=== PATIENT | female | born 1970 | race Caucasian/White ===

== ENCOUNTER 2024-04-27 14:27 | Inpatient (IN) | payer OTHER ==
--- OUTSIDE RECORDS SUMMARY | 2024-04-27 14:33 | XMS REPORT | Continuity of Care Document ---
Author Name Unknown Address [address] [facility] [address] [place] [address] [facility] thconnect Address [address] [place] [address] Care Team Providers Care Karate Instructor Name Role Phone Migdalia Aldana MD Primary Care Physician [phone] Sd Murphy Attending Clinician Unavailable RADIOLOGY Attending Clinician Unavailable Radiology Attending Clinician Unavailable Vinay Vasquez MD Attending Clinician [phone] MEKHI SENIOR Attending Clinician Unavail able MEKHI SENIOR Attending Clinician Unavail able VINAY VASQUEZ Attending Clinician Unavailable KACEY NOBLE Attending Clinician Unavailable Kacey Noble NP Attending Clinician [phone] Lab, Ang - Db Attending Clinician Unavailable Mekhi Senior MD Attending Clinician [phone] Vinay Vasquez MD Attending Clinician [phone], Adc Lab Attending Clinician Unavailable Mekhi Senior MD Attending Clinician [phone] GC_LEH_Le_D Attending Clinician Unavailable MIGDALIA TOWNSEND Admitting Clinician Unavailable KACEY NOBLE Admitting Clinician Unavailable GC_LEH_Le_D Admitting Clinician Unavailable Payers Payer Name Policy Type Policy Number Effective Date Expirati on Date Source [facility] [id number] 00:00:00 [facility] [place] (MEDICAID HMO) [id number] 2021 00:00:00 [facility] (MEDICAID REPLACEMENT - HMO) [id number] [place] [id number] Problems Condition Name Condition Details Condition Category Status Onset Date Resolution Date Last Treatment Date Treating Clinician Comments Source Morbid obesity Morbid obesity Disease Active 10-09 00:00: 00 [facility] Cigarette smoker Cigarette smoker Disease Active 10-09 00:00: 00 [facility] Bilateral carotid artery stenosis Bilateral carotid artery stenosis Disease Active 10-09 00:00: 00 [facility] Chronic obstructiv e pulmonary disease, unspecifie d COPD type Chronic obstructiv e pulmonary disease, unspecifie d COPD type Disease Active 10-09 00:00: 00 [facility] Left heart failure Left heart failure Disease Active 10-09 00:00: 00 [facility] Coronary artery disease involving [place] coronary artery of [place] heart without angina pectoris Coronary artery disease involving [place] coronary artery of [place] heart without angina pectoris Disease Active 10-09 00:00: 00 [facility] Hyperlipid emia, unspecifie d hyperlipid emia type Hyperlipid emia, unspecifie d hyperlipid emia type Disease Active 10-09 00:00: 00 [facility] Primary hypertensi on Primary hypertensi on Disease Active 10-09 00:00: 00 [facility] HIRA (obstructi ve sleep apnea) HIRA (obstructi ve sleep apnea) Disease Active 10-09 00:00: 00 [facility] Moderate chronic obstructiv e pulmonary disease Moderate Chronic Obstructiv e Pulmonary Disease Problem Active 06-06 00:00: 00 [facility] Prediabete s Prediabete s Problem Active 06-06 00:00: 00 [facility] Does mobilize using cane Does Mobilize Using Cane Problem Active 2023-0 3-06 00:00: 00 [facility] Irregular heart beat Irregular Heart Beat Problem Active 2021-03 0 00:00: 00 [facility] Bilateral cyst of breasts Bilateral Cyst of Breasts Problem Active 2021-03 0 00:00: 00 [facility] Anxiety Anxiety Problem Active 12-03 00:00: 00 [facility] Hypertensi ve disorder Hypertensi ve Disorder Problem Active 12-03 00:00: 00 [facility] Gastroesop hageal reflux disease without esophagiti s Gastroesop hageal Reflux Disease without Esophagiti s Problem Active 12-03 00:00: 00 [facility] Rheumatoid arthritis Rheumatoid Arthritis Problem Active 12-03 00:00: 00 [facility] Overactive bladder Overactive Bladder Problem Active 12-03 00:00: 00 [facility] Rheumatoid arthritis, involving unspecifie d site, unspecifie d rheumatoid factor presence Rheumatoid arthritis, involving unspecifie d site, unspecifie d rheumatoid factor presence Disease Active 08-02 00:00: 00 [facility] Pain of left hand Pain of left hand Disease Active 03-26 00:00: 00 [facility] Obesity (BMI 30-39.9) Obesity (BMI 30-39.9) Disease Active 03-19 00:00: 00 [facility] Family history of uterine cancer Family history of uterine cancer Disease Active 08-10 00:00: 00 [facility] Family history of ovarian cancer Family history of ovarian cancer Disease Active 08-10 00:00: 00 [facility] Family history of breast cancer Family history of breast cancer Disease Active 08-10 00:00: 00 [facility] History of bladder repair surgery History of bladder repair surgery Disease Active 08-10 00:00: 00 [facility] History of gastric bypass History of gastric bypass Disease Active 08-10 00:00: 00 [facility] History of total hysterecto my with bilateral salpingo-o ophorectom y (BSO) History of total hysterecto my with bilateral salpingo-o ophorectom y (BSO) Disease Active 08-10 00:00: 00 [facility] Mixed incontinen ce Mixed incontinen ce Disease Active 08-10 00:00: 00 [facility] Migraine with aura and with status migrainosu s, not intractabl e Migraine with aura and with status migrainosu s, not intractabl e Disease Active 08-10 00:00: 00 [facility] Family history of NC (myocardia l infarction ) Family history of NC (myocardia l infarction ) Disease Active 08-10 00:00: 00 [facility] Family history of blood clots Family history of blood clots Disease Active 08-10 00:00: 00 [facility] History of blood clots History of blood clots Disease Active 08-10 00:00: 00 [facility] Tobacco use disorder Tobacco use disorder Disease Active 08-10 00:00: 00 [facility] Surgical menopause Surgical menopause Disease Active 08-10 00:00: 00 [facility] Postmenopa usal atrophic vaginitis Postmenopa usal atrophic vaginitis Disease Active 08-10 00:00: 00 [facility] Perimenopa usal vasomotor symptoms Perimenopa usal vasomotor symptoms Disease Active 08-10 00:00: 00 [facility] 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 Utility [facility] [id number] BMI 40.0-44.9, adult Problem [facility] [id number] Mood disorder Problem [facility] [id number] Multiple sclerosis Problem [facility] [id number] Abnormal mammogram Problem Common [facility] [id number] Congestive heart failure, unspecifie d HF chronicity , unspecifie d heart failure type Problem Common [facility] [id number] On home O2 Problem Commo n [facility] [id number] Primary insomnia Problem [facility] Allergies, Adverse Reactions, Alerts Allergy Name Allergy Type Status Severity Reaction(s) Onset Date Inactive Date Treating Clinician Comments Source Zofran Propensi ty to adverse reaction to drug Active 03-23 00:00: 00 Alexy Cabrera ZOLPIDEM DRUG INGREDI Active Rash 8 00:00: 00 [facility] Zolpidem Propensi ty to adverse reaction s Active Rash 10-30 00:00: 00 [facility] Ambien Allergy to substanc e Active Mild Dizziness 9 00:00: 00 [facility] MEPERIDI NE HCL DRUG INGREDI Active N/V 03-19 00:00: 00 [facility] Meperidi ne Hcl Propensi ty to adverse reaction s Active Nausea and/or Vomiting 03-19 00:00: 00 [facility] Ondanset jordon Hcl (Pf) Propensi ty to adverse reaction s Active Unknown - See comments 08-10 00:00: 00 Out of her mind / Bains [facility] LISINOPR IL DRUG INGREDI Active Anaphylaxis 08-10 00:00: 00 [facility] ONDANSET JORDON HCL (PF) DRUG Active Unknown-Cmnt 08-10 00:00: 00 [facility] Lisinopr il Propensi ty to adverse reaction s Active Anaphylaxis 08-10 00:00: 00 [facility] Zofran Allergy to substanc e Active [facility] Lisinopr il Allergy to substanc e Active Dyspnea [facility] Morphine Allergy to substanc e Active [facility] Tramadol Allergy to substanc e Active [facility] Social History Social Habit Start Date Stop Date Quantity Comments Source History of tobacco use Cigarette Smoker [facility] Alcoholic beverage intake 2023-11-07 00:00:00 2023-11-07 00:00:00 0 /d [facility] History of Social function 2023-10-31 00:00:00 2023-10-31 00:00:00 [facility] Sex assigned at 1970 00:00:00 1970 00:00:00 [facility] Smoking Status Start Date Stop Date Source Never Smoker [facility] Smokes tobacco daily 2023-10-31 00:00:00 [facility] Medications Ordered Medication Name Filled Medication Name Start Date Stop Date Current Medication? Ordering Clinician Indication Dosage Frequency Signature (SIG) Comments Components Source Ibuprofen 600 MG Ibuprofen 600 MG 03-26 00:00: 00 No BID Ibuprofen 600 MG Ciprofloxac in-dexAMETH asone 0.3-0.1 % Ciprofloxac in-dexAMETH asone 0.3-0.1 % 03-26 00:00: 00 No 4{drops _into_a ffected _ear} BID Ciprofloxa aster-dexAME THasone 0.3-0.1 % Daliresp 500 mcg tablet 03-23 00:00: 00 Yes 1mcg Alexy Cabrera Azithromyci n 250 MG Azithromyci n 250 MG 2023-03 00:00: 00 No QD Azithromyc in 250 MG Mirtazapine 30 MG Mirtazapine 30 MG 2023-03 00:00: 00 No 1{table t_at_be dtime} QD Mirtazapin e 30 MG nystatin (NYSTOP) powder 11-07 01:00: 00 Yes Topical, BID, First dose on Fri11/07/23 at 2000, Until Discontinu ed, Routine [facility] benzonatate (TESSALON PERLES) capsule 100 mg 11-06 22:00: 00 11-06 21:03 :00 No 100mg 100 mg, Oral, ONCE, 1 dose, On Fri11/07/23 at 1700, Routine [facility] iopamidol (ISOVUE 370-500 mL) injection 85 mL 11-06 21:45: 00 11-06 22:00 :00 No [id number] 85mL 85 mL, Intravenou s, ONCE, 1 dose, On Fri11/07/23 at 1700, Routine [facility] albuterol (PROVENTIL) 2.5 mg /3 mL (0.083 %) nebulizer solution 2.5 mg 11-06 20:30: 00 11-06 20:39 :00 No 2.5mg 2.5 mg, Inhalation , ONCE, 1 dose, On Fri11/07/23 at 1530, RONNELL [facility] aspirin tablet 325 mg 11-06 19:30: 00 11-06 20:23 :00 No 325mg 325 mg, Oral, ONCE, 1 dose, On Fri11/07/23 at 1430, STAT [facility] sodium chloride (NS) injection 5 mL 11-06 19:27: 59 Yes 5mL 5 mL, Intravenou s, PRN, Starting on Fri11/07/23 at 1427, Until Discontinu ed, Routine, IV line flushing [facility] perflutren protein-A microsphr (OPTISON) injection 3 mL 11-06 19:00: 00 11-06 19:00 :00 No [id number] 3mL 3 mL, IV Push, ONCE, 1 dose, On Fri11/07/23 at 1400, Routine [facility] gabapentin 800 mg tablet 11-03 00:00: 00 Yes 800mg Take 1 tablet by mouth in the morning and 1 tablet at noon and 1 tablet in the evening. [facility] BELBUCA 600 mcg Film 11-02 00:00: 00 Yes 600ug Take 600 mcg by mouth in the morning and 600 mcg in the evening. [facility] omeprazole 40 mg capsule 10-15 00:00: 00 Yes 40mg Take 1 capsule by mouth in the morning. [facility] venlafaxine XR 75 mg 24 hr capsule 10-13 00:00: 00 Yes 75mg Take 1 capsule by mouth at bedtime. [facility] spironolact one 25 mg tablet 10-12 00:00: 00 Yes 25mg Take 1 tablet by mouth in the morning. [facility] losartan 50 mg tablet 10-10 00:00: 00 Yes 50mg Take 1 tablet by mouth in the morning. [facility] furosemide 40 mg tablet 10-09 00:00: 00 Yes [id number] 40mg Take 1 tablet by mouth in the morning. [facility] busPIRone 10 mg tablet 10-07 00:00: 00 Yes 10mg Take 1 tablet by mouth in the morning and 1 tablet at noon and 1 tablet in the evening. [facility] Albuterol Sulfate HFA 108 (90 Base) MCG/ACT Albuterol Sulfate HFA 108 (90 Base) MCG/ACT 10-06 00:00: 00 No 1{puff_ as_need ed} 6xD Albuterol Sulfate HFA 108 (90 Base) MCG/ACT tizanidine 4 mg tablet Take 3 tablets every day by oral route at bedtime for 30 days. tizanidine 4 mg tablet Take 3 tablets every day by oral route at bedtime for 30 days. 12-03 00:00: 00 No 3 Q1D tizanidine 4 mg tablet Take 3 tablets every day by oral route at bedtime for 30 days. [facility] evening primrose oil 100MG BID evening primrose oil 100MG BID 12-03 00:00: 00 No evening primrose oil 100MG BID [facility] phentermine 37.5 mg capsule Take 1 capsule twice a day by oral route as directed for 90 days. phentermine 37.5 mg capsule Take 1 capsule twice a day by oral route as directed for 90 days. 12-03 00:00: 00 No 1capsul e(s) BID phentermin e 37.5 mg capsule Take 1 capsule twice a day by oral route as directed for 90 days. [facility] evening primrose oil 100MG BID evening primrose oil 100MG BID 12-03 00:00: 00 No evening primrose oil 100MG BID [facility] phentermine 37.5 mg capsule Take 1 capsule twice a day by oral route as directed for 90 days. phentermine 37.5 mg capsule Take 1 capsule twice a day by oral route as directed for 90 days. 12-03 00:00: 00 No 1capsul e(s) BID phentermin e 37.5 mg capsule Take 1 capsule twice a day by oral route as directed for 90 days. [facility] evening primrose oil 100MG BID evening primrose oil 100MG BID 12-03 00:00: 00 No evening primrose oil 100MG BID [facility] phentermine 37.5 mg capsule Take 1 capsule twice a day by oral route as directed for 90 days. phentermine 37.5 mg capsule Take 1 capsule twice a day by oral route as directed for 90 days. 12-03 00:00: 00 No 1capsul e(s) BID phentermin e 37.5 mg capsule Take 1 capsule twice a day by oral route as directed for 90 days. [facility] buspirone 10 mg tablet Take 1 tablet 3 times a day by oral route as directed for 30 days. buspirone 10 mg tablet Take 1 tablet 3 times a day by oral route as directed for 30 days. 12-03 00:00: 00 No 1 TID buspirone 10 mg tablet Take 1 tablet 3 times a day by oral route as directed for 30 days. [facility] evening primrose oil 100MG BID evening primrose oil 100MG BID 12-03 00:00: 00 No evening primrose oil 100MG BID [facility] phentermine 37.5 mg capsule Take 1 capsule twice a day by oral route as directed for 90 days. phentermine 37.5 mg capsule Take 1 capsule twice a day by oral route as directed for 90 days. 12-03 00:00: 00 No 1capsul e(s) BID phentermin e 37.5 mg capsule Take 1 capsule twice a day by oral route as directed for 90 days. [facility] paroxetine 30 mg tablet Take 1 tablet every day by oral route as directed for 90 days. paroxetine 30 mg tablet Take 1 tablet every day by oral route as directed for 90 days. 12-03 00:00: 00 No 1 Q1D paroxetine 30 mg tablet Take 1 tablet every day by oral route as directed for 90 days. [facility] evening primrose oil 100MG BID evening primrose oil 100MG BID 12-03 00:00: 00 No evening primrose oil 100MG BID [facility] phentermine 37.5 mg capsule Take 1 capsule twice a day by oral route as directed for 90 days. phentermine 37.5 mg capsule Take 1 capsule twice a day by oral route as directed for 90 days. 12-03 00:00: 00 No 1capsul e(s) BID phentermin e 37.5 mg capsule Take 1 capsule twice a day by oral route as directed for 90 days. [facility] buspirone 10 mg tablet Take 1 tablet 3 times a day by oral route as directed for 30 days. buspirone 10 mg tablet Take 1 tablet 3 times a day by oral route as directed for 30 days. 12-03 00:00: 00 No 1 TID buspirone 10 mg tablet Take 1 tablet 3 times a day by oral route as directed for 30 days. [facility] evening primrose oil 100MG BID evening primrose oil 100MG BID 12-03 00:00: 00 No evening primrose oil 100MG BID [facility] gabapentin 800 mg tablet Take 1 tablet 4 times a day by oral route as directed for 90 days. gabapentin 800 mg tablet Take 1 tablet 4 times a day by oral route as directed for 90 days. 12-03 00:00: 00 No 1 QID gabapentin 800 mg tablet Take 1 tablet 4 times a day by oral route as directed for 90 days. [facility] paroxetine 30 mg tablet Take 1 tablet every day by oral route as directed for 90 days. paroxetine 30 mg tablet Take 1 tablet every day by oral route as directed for 90 days. 12-03 00:00: 00 No 1 Q1D paroxetine 30 mg tablet Take 1 tablet every day by oral route as directed for 90 days. [facility] phentermine 37.5 mg capsule Take 1 capsule twice a day by oral route as directed for 90 days. phentermine 37.5 mg capsule Take 1 capsule twice a day by oral route as directed for 90 days. 12-03 00:00: 00 No 1capsul e(s) BID phentermin e 37.5 mg capsule Take 1 capsule twice a day by oral route as directed for 90 days. [facility] tizanidine 4 mg tablet Take 3 tablets every day by oral route at bedtime for 30 days. tizanidine 4 mg tablet Take 3 tablets every day by oral route at bedtime for 30 days. 12-03 00:00: 00 No 3 Q1D tizanidine 4 mg tablet Take 3 tablets every day by oral route at bedtime for 30 days. [facility] buspirone 10 mg tablet Take 1 tablet 3 times a day by oral route as directed for 30 days. buspirone 10 mg tablet Take 1 tablet 3 times a day by oral route as directed for 30 days. 12-03 00:00: 00 No 1 TID buspirone 10 mg tablet Take 1 tablet 3 times a day by oral route as directed for 30 days. [facility] evening primrose oil 100MG BID evening primrose oil 100MG BID 12-03 00:00: 00 No evening primrose oil 100MG BID [facility] gabapentin 800 mg tablet Take 1 tablet 4 times a day by oral route as directed for 90 days. gabapentin 800 mg tablet Take 1 tablet 4 times a day by oral route as directed for 90 days. 12-03 00:00: 00 No 1 QID gabapentin 800 mg tablet Take 1 tablet 4 times a day by oral route as directed for 90 days. [facility] phentermine 37.5 mg capsule Take 1 capsule twice a day by oral route as directed for 90 days. phentermine 37.5 mg capsule Take 1 capsule twice a day by oral route as directed for 90 days. 12-03 00:00: 00 No 1capsul e(s) BID phentermin e 37.5 mg capsule Take 1 capsule twice a day by oral route as directed for 90 days. [facility] naproxen 500 mg tablet 07-25 00:00: 00 11-06 00:00 :00 No [facility] famotidine 20 mg tablet 07-25 00:00: 00 11-06 00:00 :00 No [facility] methylPREDN ISolone 4 mg tablets 07-12 00:00: 00 11-06 00:00 :00 No [facility] hydrOXYzine 25 mg tablet 07-11 00:00: 00 11-06 00:00 :00 No [facility] FENTanyl 50 mcg/hr patch 07-10 00:00: 00 11-06 00:00 :00 No [facility] ACTEMRA 162 mg/0.9 mL Syrg 06-27 00:00: 00 11-06 00:00 :00 No [facility] amitriptyli ne (ELAVIL) 25 mg tablet 2015-03 00:00: 00 11-06 00:00 :00 No [facility] leflunomide (ARAVA) 20 mg tablet 2015-03 00:00: 00 11-06 00:00 :00 No [facility] Diclofenac Sodium (VOLTAREN) 1 % gel 2015-03 00:00: 00 11-06 00:00 :00 No [facility] ENBREL SURECLICK 50 mg/mL (0.98 mL) injection 2015-03 00:00: 00 10-30 00:00 :00 No [facility] MYRBETRIQ 25 mg tablet 2015-03 00:00: 00 11-06 00:00 :00 No [facility] FENTanyl (DURAGESIC) 25 mcg/hr patch 12-14 00:00: 00 11-06 00:00 :00 No [facility] methotrexat e (RHEUMATREX ) 2.5 mg tablet 10-23 00:00: 00 11-06 00:00 :00 No [facility] triamterene -hydrochlor othiazide (DYAZIDE) 37.5-25 mg per capsule 10-23 00:00: 00 11-06 00:00 :00 No [facility] foLIC acid (FOLATE) 1 mg tablet 10-22 00:00: 00 11-06 00:00 :00 No [facility] propranolol (INDERAL LA) 60 mg 24 hr capsule 08-28 00:00: 00 11-06 00:00 :00 [facility] tiZANidine (ZANAFLEX) 4 mg tablet 08-04 00:00: 00 Yes [facility] HYDROcodone -acetaminop hen (NORCO) 10-325 mg tablet 08-04 00:00: 00 11-06 00:00 :00 [facility] pantoprazol e (PROTONIX) 40 mg EC tablet 07-31 00:00: 00 11-06 00:00 :00 No [facility] losartan-hy drochloroth iazide (HYZAAR) 100-25 mg per tablet 07-25 00:00: 00 11-06 00:00 :00 No [facility] predniSONE (DELTASONE) 10 mg tablet 07-20 00:00: 00 11-06 00:00 :00 No [facility] CRESTOR 10 mg tablet 07-17 00:00: 00 11-06 00:00 :00 No [facility] labetalol (NORMODYNE) 100 mg tablet 09-06 00:00: 00 11-06 00:00 :00 No 100mg Take 1 Tab by mouth every 12 (twelve) hours. [facility] hydrochloro thiazide (ESIDRIX) 25 mg tablet 09-06 00:00: 00 11-06 00:00 :00 No 25mg Take 1 Tab by mouth daily. [facility] zolpidem (AMBIEN) 10 mg tablet 09-06 00:00: 00 11-06 00:00 :00 No 10mg Take 1 Tab by mouth at bedtime as needed for Sleep. [facility] vitamin w/FA (PRENTAL RX) tablet 09-06 00:00: 00 11-06 00:00 :00 No 1{tbl} Take 1 Tab by mouth daily. [facility] docusate calcium (SURFAK) 240 mg capsule 09-06 00:00: 11-06 00:00 :00 No 240mg Take 1 Cap by mouth once daily as needed for Constipati on. [facility] ferrous sulfate 325 mg (65 mg Iron) tablet 09-06 00:0011-06 00:00 :00 No 325mg Take 1 Tab by mouth 2 (two) times daily. [facility] hydrocodone -acetaminop hen (NORCO 5) 5-325 mg tablet 09-06 00:00: 11-06 00:00 :00 No 1{tbl} Take 1-2 Tabs by mouth every 6 (six) hours as needed for Pain. Not to be administer ed at the same time as [place] 10 if ordered. For patients < 12 years recommend do not exceed 5 doses or 2.6 gm in 24 hours totals for all acetaminop hen containing products. For adults with normal hepatic function recommend do not exceed 4 grams in 24 hours for all acetaminop hen containing products. [facility] ibuprofen (MOTRIN) 600 mg tablet 09-06 00:00: 11-06 00:00 :00 No 600mg Take 1 Tab by mouth every 6 (six) hours as needed for Pain. [facility] Furosemide 40 MG Furosemide 40 MG No 1{table t} QD Furosemide 40 MG Spironolact one 25 MG Spironolact one 25 MG No 1{table t} Spironolac tone 25 MG Trelegy Ellipta 100-62.5-25 MCG/ACT Trelegy Ellipta 100-62.5-25 MCG/ACT No 1{puff} QD Trelegy Ellipta 100-62.5-2 5 MCG/ACT predniSONE 10 MG predniSONE 10 MG No 1{table t} QD predniSONE 10 MG Losartan Potassium 50 MG Losartan Potassium 50 MG No 1{table t} QD Losartan Potassium 50 MG Venlafaxine HCl ER 150 MG Venlafaxine HCl ER 150 MG No 1{capsu le_with _food} QD Venlafaxin e HCl ER 150 MG Pravastatin Sodium 40 MG Pravastatin Sodium 40 MG No 1{table t} QD Pravastati n Sodium 40 MG amLODIPine Besylate 10 MG amLODIPine Besylate 10 MG No 1{table t} QD amLODIPine Besylate 10 MG Gabapentin 800 MG Gabapentin 800 MG No 1{table t} QD Gabapentin 800 MG Venlafaxine HCl ER 75 MG Venlafaxine HCl ER 75 MG No 1{capsu le_with _food} QD Venlafaxin e HCl ER 75 MG levoFLOXaci n 750 MG levoFLOXaci n 750 MG No levoFLOXac in 750 MG triamcinolo ne acetonide 40 mg/mL suspension for injection Take 20 mg by injection route. triamcinolo ne acetonide 40 mg/mL suspension for injection Take 20 mg by injection route. No 20mg triamcinol one acetonide 40 mg/mL suspension for injection Take 20 mg by injection route. [facility] trospium 20 mg tablet Take 1 tablet twice a day by oral route. trospium 20 mg tablet Take 1 tablet twice a day by oral route. No 1 BID trospium 20 mg tablet Take 1 tablet twice a day by oral route. [facility] venlafaxine ER 150 mg capsule,ext ended release 24 hr Take 1 capsule every day by oral route. venlafaxine ER 150 mg capsule,ext ended release 24 hr Take 1 capsule every day by oral route. No 1capsul e(s) Q1D venlafaxin e ER 150 mg capsule,ex tended release 24 hr Take 1 capsule every day by oral route. [facility] venlafaxine ER 75 mg capsule,ext ended release 24 hr Take 1 capsule every day by oral route. venlafaxine ER 75 mg capsule,ext ended release 24 hr Take 1 capsule every day by oral route. No 1capsul e(s) Q1D venlafaxin e ER 75 mg capsule,ex tended release 24 hr Take 1 capsule every day by oral route. [facility] Vitamin D2 1,250 mcg (50,000 unit) capsule Take 1 capsule every week by oral route. Vitamin D2 1,250 mcg (50,000 unit) capsule Take 1 capsule every week by oral route. No 1capsul e(s) Q1W Vitamin D2 1,250 mcg (50,000 unit) capsule Take 1 capsule every week by oral route. [facility] amlodipine 10 mg tablet Take 1 tablet every day by oral route as directed for 30 days. amlodipine 10 mg tablet Take 1 tablet every day by oral route as directed for 30 days. No 1 Q1D amlodipine 10 mg tablet Take 1 tablet every day by oral route as directed for 30 days. [facility] buspirone 10 mg tablet Take 1 tablet 3 times a day by oral route as directed for 30 days. buspirone 10 mg tablet Take 1 tablet 3 times a day by oral route as directed for 30 days. No 1 TID buspirone 10 mg tablet Take 1 tablet 3 times a day by oral route as directed for 30 days. [facility] dexamethaso ne sodium phosphate 4 mg/mL injection solution Inject 1 mL by intramuscul ar route. dexamethaso ne sodium phosphate 4 mg/mL injection solution Inject 1 mL by intramuscul ar route. No 1mL dexamethas one sodium phosphate 4 mg/mL injection solution Inject 1 mL by intramuscu lar route. [facility] ketorolac 30 mg/mL (1 mL) injection solution Inject 1 mL by intramuscul ar route. ketorolac 30 mg/mL (1 mL) injection solution Inject 1 mL by intramuscul ar route. No 1mL ketorolac 30 mg/mL (1 mL) injection solution Inject 1 mL by intramuscu lar route. [facility] Macrobid 100 mg capsule Take 1 capsule every 12 hours by oral route. Macrobid 100 mg capsule Take 1 capsule every 12 hours by oral route. No 1capsul e(s) Q12H Macrobid 100 mg capsule Take 1 capsule every 12 hours by oral route. [facility] omeprazole 40 mg capsule,del ayed release Take 1 capsule every day by oral route. omeprazole 40 mg capsule,del ayed release Take 1 capsule every day by oral route. No 1capsul e(s) Q1D omeprazole 40 mg capsule,de layed release Take 1 capsule every day by oral route. [facility] paroxetine 30 mg tablet Take 1 tablet every day by oral route as directed for 90 days. paroxetine 30 mg tablet Take 1 tablet every day by oral route as directed for 90 days. No 1 Q1D paroxetine 30 mg tablet Take 1 tablet every day by oral route as directed for 90 days. [facility] triamcinolo ne acetonide 40 mg/mL suspension for injection Take 20 mg by injection route. triamcinolo ne acetonide 40 mg/mL suspension for injection Take 20 mg by injection route. No 20mg triamcinol one acetonide 40 mg/mL suspension for injection Take 20 mg by injection route. [facility] trospium 20 mg tablet Take 1 tablet twice a day by oral route. trospium 20 mg tablet Take 1 tablet twice a day by oral route. No trospium 20 mg tablet Take 1 tablet twice a day by oral route. [facility] venlafaxine ER 150 mg capsule,ext ended release 24 hr Take 1 capsule every day by oral route. venlafaxine ER 150 mg capsule,ext ended release 24 hr Take 1 capsule every day by oral route. No 1capsul e(s) Q1D venlafaxin e ER 150 mg capsule,ex tended release 24 hr Take 1 capsule every day by oral route. [facility] venlafaxine ER 75 mg capsule,ext ended release 24 hr Take 1 capsule every day by oral route. venlafaxine ER 75 mg capsule,ext ended release 24 hr Take 1 capsule every day by oral route. No 1capsul e(s) Q1D venlafaxin e ER 75 mg capsule,ex tended release 24 hr Take 1 capsule every day by oral route. [facility] Vitamin D2 1,250 mcg (50,000 unit) capsule Take 1 capsule every week by oral route. Vitamin D2 1,250 mcg (50,000 unit) capsule Take 1 capsule every week by oral route. No 1capsul e(s) Q1W Vitamin D2 1,250 mcg (50,000 unit) capsule Take 1 capsule every week by oral route. [facility] amlodipine 10 mg tablet Take 1 tablet every day by oral route as directed for 30 days. amlodipine 10 mg tablet Take 1 tablet every day by oral route as directed for 30 days. No amlodipine 10 mg tablet Take 1 tablet every day by oral route as directed for 30 days. [facility] buspirone 10 mg tablet Take 1 tablet 3 times a day by oral route as directed for 30 days. buspirone 10 mg tablet Take 1 tablet 3 times a day by oral route as directed for 30 days. No 1 TID buspirone 10 mg tablet Take 1 tablet 3 times a day by oral route as directed for 30 days. [facility] dexamethaso ne sodium phosphate 4 mg/mL injection solution Inject 1 mL by intramuscul ar route. dexamethaso ne sodium phosphate 4 mg/mL injection solution Inject 1 mL by intramuscul ar route. No 1mL dexamethas one sodium phosphate 4 mg/mL injection solution Inject 1 mL by intramuscu lar route. [facility] ketorolac 30 mg/mL (1 mL) injection solution Inject 1 mL by intramuscul ar route. ketorolac 30 mg/mL (1 mL) injection solution Inject 1 mL by intramuscul ar route. No 1mL ketorolac 30 mg/mL (1 mL) injection solution Inject 1 mL by intramuscu lar route. [facility] Macrobid 100 mg capsule Take 1 capsule every 12 hours by oral route. Macrobid 100 mg capsule Take 1 capsule every 12 hours by oral route. No 1capsul e(s) Q12H Macrobid 100 mg capsule Take 1 capsule every 12 hours by oral route. [facility] paroxetine 30 mg tablet Take 1 tablet every day by oral route as directed for 90 days. paroxetine 30 mg tablet Take 1 tablet every day by oral route as directed for 90 days. No paroxetine 30 mg tablet Take 1 tablet every day by oral route as directed for 90 days. [facility] triamcinolo ne acetonide 40 mg/mL suspension for injection Take 20 mg by injection route. triamcinolo ne acetonide 40 mg/mL suspension for injection Take 20 mg by injection route. No 20mg triamcinol one acetonide 40 mg/mL suspension for injection Take 20 mg by injection route. [facility] trospium 20 mg tablet Take 1 tablet twice a day by oral route. trospium 20 mg tablet Take 1 tablet twice a day by oral route. No trospium 20 mg tablet Take 1 tablet twice a day by oral route. [facility] venlafaxine ER 150 mg capsule,ext ended release 24 hr Take 1 capsule every day by oral route. venlafaxine ER 150 mg capsule,ext ended release 24 hr Take 1 capsule every day by oral route. No venlafaxin e ER 150 mg capsule,ex tended release 24 hr Take 1 capsule every day by oral route. [facility] Vitamin D2 1,250 mcg (50,000 unit) capsule Take 1 capsule every week by oral route. Vitamin D2 1,250 mcg (50,000 unit) capsule Take 1 capsule every week by oral route. No Vitamin D2 1,250 mcg (50,000 unit) capsule Take 1 capsule every week by oral route. [facility] amlodipine 10 mg tablet Take 1 tablet every day by oral route as directed for 30 days. amlodipine 10 mg tablet Take 1 tablet every day by oral route as directed for 30 days. No amlodipine 10 mg tablet Take 1 tablet every day by oral route as directed for 30 days. [facility] dexamethaso ne sodium phosphate 4 mg/mL injection solution Inject 1 mL by intramuscul ar route. dexamethaso ne sodium phosphate 4 mg/mL injection solution Inject 1 mL by intramuscul ar route. No 1mL dexamethas one sodium phosphate 4 mg/mL injection solution Inject 1 mL by intramuscu lar route. [facility] ketorolac 30 mg/mL (1 mL) injection solution Inject 1 mL by intramuscul ar route. ketorolac 30 mg/mL (1 mL) injection solution Inject 1 mL by intramuscul ar route. No 1mL ketorolac 30 mg/mL (1 mL) injection solution Inject 1 mL by intramuscu lar route. [facility] Macrobid 100 mg capsule Take 1 capsule every 12 hours by oral route. Macrobid 100 mg capsule Take 1 capsule every 12 hours by oral route. No 1capsul e(s) Q12H Macrobid 100 mg capsule Take 1 capsule every 12 hours by oral route. [facility] [place] 10 mg-325 mg tablet Take 1 tablet every 4-6 hours by oral route as needed for 19 days. [place] 10 mg-325 mg tablet Take 1 tablet every 4-6 hours by oral route as needed for 19 days. No 1 Q5H [place] 10 mg-325 mg tablet Take 1 tablet every 4-6 hours by oral route as needed for 19 days. [facility] paroxetine 30 mg tablet Take 1 tablet every day by oral route as directed for 90 days. paroxetine 30 mg tablet Take 1 tablet every day by oral route as directed for 90 days. No paroxetine 30 mg tablet Take 1 tablet every day by oral route as directed for 90 days. [facility] triamcinolo ne acetonide 40 mg/mL suspension for injection Take 20 mg by injection route. triamcinolo ne acetonide 40 mg/mL suspension for injection Take 20 mg by injection route. No 20mg triamcinol one acetonide 40 mg/mL suspension for injection Take 20 mg by injection route. [facility] trospium 20 mg tablet Take 1 tablet twice a day by oral route. trospium 20 mg tablet Take 1 tablet twice a day by oral route. No trospium 20 mg tablet Take 1 tablet twice a day by oral route. [facility] venlafaxine ER 150 mg capsule,ext ended release 24 hr Take 1 capsule every day by oral route. venlafaxine ER 150 mg capsule,ext ended release 24 hr Take 1 capsule every day by oral route. No venlafaxin e ER 150 mg capsule,ex tended release 24 hr Take 1 capsule every day by oral route. [facility] Vitamin D2 1,250 mcg (50,000 unit) capsule Take 1 capsule every week by oral route. Vitamin D2 1,250 mcg (50,000 unit) capsule Take 1 capsule every week by oral route. No Vitamin D2 1,250 mcg (50,000 unit) capsule Take 1 capsule every week by oral route. [facility] amlodipine 10 mg tablet Take 1 tablet every day by oral route. amlodipine 10 mg tablet Take 1 tablet every day by oral route. No 1 Q1D amlodipine 10 mg tablet Take 1 tablet every day by oral route. [facility] amlodipine 10 mg tablet Take 1 tablet every day by oral route as directed for 30 days. amlodipine 10 mg tablet Take 1 tablet every day by oral route as directed for 30 days. No amlodipine 10 mg tablet Take 1 tablet every day by oral route as directed for 30 days. [facility] azithromyci n 250 mg tablet TAKE 2 TABLETS (500 MG) BY ORAL ROUTE ONCE DAILY FOR 1 DAY THEN 1 TABLET (250 MG) BY ORAL ROUTE ONCE DAILY FOR 4 DAYS azithromyci n 250 mg tablet TAKE 2 TABLETS (500 MG) BY ORAL ROUTE ONCE DAILY FOR 1 DAY THEN 1 TABLET (250 MG) BY ORAL ROUTE ONCE DAILY FOR 4 DAYS No azithromyc in 250 mg tablet TAKE 2 TABLETS (500 MG) BY ORAL ROUTE ONCE DAILY FOR 1 DAY THEN 1 TABLET (250 MG) BY ORAL ROUTE ONCE DAILY FOR 4 DAYS [facility] clonidine HCl 0.1 mg tablet take one tab daily PRN for BP >160/90 clonidine HCl 0.1 mg tablet take one tab daily PRN for BP >160/90 No clonidine HCl 0.1 mg tablet take one tab daily PRN for BP >160/90 [facility] dexamethaso ne sodium phosphate 4 mg/mL injection solution Inject 1 mL by intramuscul ar route. dexamethaso ne sodium phosphate 4 mg/mL injection solution Inject 1 mL by intramuscul ar route. No 1mL dexamethas one sodium phosphate 4 mg/mL injection solution Inject 1 mL by intramuscu lar route. [facility] dexamethaso ne sodium phosphate 4 mg/mL injection syringe Inject 1 mL by intramuscul ar route. dexamethaso ne sodium phosphate 4 mg/mL injection syringe Inject 1 mL by intramuscul ar route. No 1mL dexamethas one sodium phosphate 4 mg/mL injection syringe Inject 1 mL by intramuscu lar route. [facility] epinephrine 0.3 mg/0.3 mL injection, auto-inject or Take 1 auto by injection route as needed. epinephrine 0.3 mg/0.3 mL injection, auto-inject or Take 1 auto by injection route as needed. No 1auto(s ) epinephrin e 0.3 mg/0.3 mL injection, auto-injec tor Take 1 auto by injection route as needed. [facility] FeroSul 325 mg (65 mg iron) tablet Take 1 tablet twice a day by oral route. FeroSul 325 mg (65 mg iron) tablet Take 1 tablet twice a day by oral route. No 1 BID FeroSul 325 mg (65 mg iron) tablet Take 1 tablet twice a day by oral route. [facility] ketorolac 30 mg/mL (1 mL) injection solution Inject 1 mL by intramuscul ar route. ketorolac 30 mg/mL (1 mL) injection solution Inject 1 mL by intramuscul ar route. No 1mL ketorolac 30 mg/mL (1 mL) injection solution Inject 1 mL by intramuscu lar route. [facility] losartan 50 mg tablet Take 1 tablet every day by oral route. losartan 50 mg tablet Take 1 tablet every day by oral route. No 1 Q1D losartan 50 mg tablet Take 1 tablet every day by oral route. [facility] Macrobid 100 mg capsule Take 1 capsule every 12 hours by oral route. Macrobid 100 mg capsule Take 1 capsule every 12 hours by oral route. No 1capsul e(s) Q12H Macrobid 100 mg capsule Take 1 capsule every 12 hours by oral route. [facility] Macrobid 100 mg capsule Take 1 capsule every 12 hours by oral route. Macrobid 100 mg capsule Take 1 capsule every 12 hours by oral route. No 1capsul e(s) Q12H Macrobid 100 mg capsule Take 1 capsule every 12 hours by oral route. [facility] paroxetine 30 mg tablet Take 1 tablet every day by oral route as directed for 90 days. paroxetine 30 mg tablet Take 1 tablet every day by oral route as directed for 90 days. No paroxetine 30 mg tablet Take 1 tablet every day by oral route as directed for 90 days. [facility] prednisone 20 mg tablet Take 1 tablet every day by oral route. prednisone 20 mg tablet Take 1 tablet every day by oral route. No 1 Q1D prednisone 20 mg tablet Take 1 tablet every day by oral route. [facility] triamcinolo ne acetonide 40 mg/mL suspension for injection Take 20 mg by injection route. triamcinolo ne acetonide 40 mg/mL suspension for injection Take 20 mg by injection route. No 20mg triamcinol one acetonide 40 mg/mL suspension for injection Take 20 mg by injection route. [facility] trospium 20 mg tablet Take 1 tablet twice a day by oral route. trospium 20 mg tablet Take 1 tablet twice a day by oral route. No trospium 20 mg tablet Take 1 tablet twice a day by oral route. [facility] venlafaxine ER 150 mg capsule,ext ended release 24 hr Take 1 capsule every day by oral route. venlafaxine ER 150 mg capsule,ext ended release 24 hr Take 1 capsule every day by oral route. No venlafaxin e ER 150 mg capsule,ex tended release 24 hr Take 1 capsule every day by oral route. [facility] Vitamin D2 1,250 mcg (50,000 unit) capsule Take 1 capsule every week by oral route. Vitamin D2 1,250 mcg (50,000 unit) capsule Take 1 capsule every week by oral route. No 1capsul e(s) Q1W Vitamin D2 1,250 mcg (50,000 unit) capsule Take 1 capsule every week by oral route. [facility] omeprazole 40 mg capsule,del ayed release Take 1 capsule every day by oral route. omeprazole 40 mg capsule,del ayed release Take 1 capsule every day by oral route. No 1capsul e(s) Q1D omeprazole 40 mg capsule,de layed release Take 1 capsule every day by oral route. [facility] trospium 20 mg tablet Take 1 tablet twice a day by oral route. trospium 20 mg tablet Take 1 tablet twice a day by oral route. No 1 BID trospium 20 mg tablet Take 1 tablet twice a day by oral route. [facility] venlafaxine ER 150 mg capsule,ext ended release 24 hr Take 1 capsule every day by oral route. venlafaxine ER 150 mg capsule,ext ended release 24 hr Take 1 capsule every day by oral route. No 1capsul e(s) Q1D venlafaxin e ER 150 mg capsule,ex tended release 24 hr Take 1 capsule every day by oral route. [facility] amlodipine 10 mg tablet Take 1 tablet every day by oral route as directed for 30 days. amlodipine 10 mg tablet Take 1 tablet every day by oral route as directed for 30 days. No 1 Q1D amlodipine 10 mg tablet Take 1 tablet every day by oral route as directed for 30 days. [facility] azithromyci n 250 mg tablet TAKE 2 TABLETS (500 MG) BY ORAL ROUTE ONCE DAILY FOR 1 DAY THEN 1 TABLET (250 MG) BY ORAL ROUTE ONCE DAILY FOR 4 DAYS azithromyci n 250 mg tablet TAKE 2 TABLETS (500 MG) BY ORAL ROUTE ONCE DAILY FOR 1 DAY THEN 1 TABLET (250 MG) BY ORAL ROUTE ONCE DAILY FOR 4 DAYS No azithromyc in 250 mg tablet TAKE 2 TABLETS (500 MG) BY ORAL ROUTE ONCE DAILY FOR 1 DAY THEN 1 TABLET (250 MG) BY ORAL ROUTE ONCE DAILY FOR 4 DAYS [facility] clonidine HCl 0.1 mg tablet take one tab daily PRN for BP >160/90 clonidine HCl 0.1 mg tablet take one tab daily PRN for BP >160/90 No clonidine HCl 0.1 mg tablet take one tab daily PRN for BP >160/90 [facility] dexamethaso ne sodium phosphate 4 mg/mL injection solution Inject 1 mL by intramuscul ar route. dexamethaso ne sodium phosphate 4 mg/mL injection solution Inject 1 mL by intramuscul ar route. No 1mL dexamethas one sodium phosphate 4 mg/mL injection solution Inject 1 mL by intramuscu lar route. [facility] dexamethaso ne sodium phosphate 4 mg/mL injection syringe Inject 1 mL by intramuscul ar route. dexamethaso ne sodium phosphate 4 mg/mL injection syringe Inject 1 mL by intramuscul ar route. No 1mL dexamethas one sodium phosphate 4 mg/mL injection syringe Inject 1 mL by intramuscu lar route. [facility] epinephrine 0.3 mg/0.3 mL injection, auto-inject or Take 1 auto by injection route as needed. epinephrine 0.3 mg/0.3 mL injection, auto-inject or Take 1 auto by injection route as needed. No 1auto(s ) epinephrin e 0.3 mg/0.3 mL injection, auto-injec tor Take 1 auto by injection route as needed. [facility] venlafaxine ER 75 mg capsule,ext ended release 24 hr Take 1 capsule every day by oral route. venlafaxine ER 75 mg capsule,ext ended release 24 hr Take 1 capsule every day by oral route. No 1capsul e(s) Q1D venlafaxin e ER 75 mg capsule,ex tended release 24 hr Take 1 capsule every day by oral route. [facility] FeroSul 325 mg (65 mg iron) tablet Take 1 tablet twice a day by oral route. FeroSul 325 mg (65 mg iron) tablet Take 1 tablet twice a day by oral route. No 1 BID FeroSul 325 mg (65 mg iron) tablet Take 1 tablet twice a day by oral route. [facility] ketorolac 30 mg/mL (1 mL) injection solution Inject 1 mL by intramuscul ar route. ketorolac 30 mg/mL (1 mL) injection solution Inject 1 mL by intramuscul ar route. No 1mL ketorolac 30 mg/mL (1 mL) injection solution Inject 1 mL by intramuscu lar route. [facility] losartan 50 mg tablet Take 1 tablet every day by oral route. losartan 50 mg tablet Take 1 tablet every day by oral route. No 1 Q1D losartan 50 mg tablet Take 1 tablet every day by oral route. [facility] Macrobid 100 mg capsule Take 1 capsule every 12 hours by oral route. Macrobid 100 mg capsule Take 1 capsule every 12 hours by oral route. No 1capsul e(s) Q12H Macrobid 100 mg capsule Take 1 capsule every 12 hours by oral route. [facility] omeprazole 40 mg capsule,del ayed release Take 1 capsule every day by oral route. omeprazole 40 mg capsule,del ayed release Take 1 capsule every day by oral route. No 1capsul e(s) Q1D omeprazole 40 mg capsule,de layed release Take 1 capsule every day by oral route. [facility] paroxetine 30 mg tablet Take 1 tablet every day by oral route as directed for 90 days. paroxetine 30 mg tablet Take 1 tablet every day by oral route as directed for 90 days. No 1 Q1D paroxetine 30 mg tablet Take 1 tablet every day by oral route as directed for 90 days. [facility] prednisone 20 mg tablet Take 1 tablet every day by oral route. prednisone 20 mg tablet Take 1 tablet every day by oral route. No 1 Q1D prednisone 20 mg tablet Take 1 tablet every day by oral route. [facility] triamcinolo ne acetonide 40 mg/mL suspension for injection Take 20 mg by injection route. triamcinolo ne acetonide 40 mg/mL suspension for injection Take 20 mg by injection route. No 20mg triamcinol one acetonide 40 mg/mL suspension for injection Take 20 mg by injection route. [facility] trospium 20 mg tablet Take 1 tablet twice a day by oral route. trospium 20 mg tablet Take 1 tablet twice a day by oral route. No trospium 20 mg tablet Take 1 tablet twice a day by oral route. [facility] venlafaxine ER 150 mg capsule,ext ended release 24 hr Take 1 capsule every day by oral route. venlafaxine ER 150 mg capsule,ext ended release 24 hr Take 1 capsule every day by oral route. No 1capsul e(s) Q1D venlafaxin e ER 150 mg capsule,ex tended release 24 hr Take 1 capsule every day by oral route. [facility] venlafaxine ER 75 mg capsule,ext ended release 24 hr Take 1 capsule every day by oral route. venlafaxine ER 75 mg capsule,ext ended release 24 hr Take 1 capsule every day by oral route. No 1capsul e(s) Q1D venlafaxin e ER 75 mg capsule,ex tended release 24 hr Take 1 capsule every day by oral route. [facility] Vitamin D2 1,250 mcg (50,000 unit) capsule Take 1 capsule every week by oral route. Vitamin D2 1,250 mcg (50,000 unit) capsule Take 1 capsule every week by oral route. No 1capsul e(s) Q1W Vitamin D2 1,250 mcg (50,000 unit) capsule Take 1 capsule every week by oral route. [facility] amlodipine 10 mg tablet Take 1 tablet every day by oral route. amlodipine 10 mg tablet Take 1 tablet every day by oral route. No 1 Q1D amlodipine 10 mg tablet Take 1 tablet every day by oral route. [facility] dexamethaso ne sodium phosphate 4 mg/mL injection solution Inject 1 mL by intramuscul ar route. dexamethaso ne sodium phosphate 4 mg/mL injection solution Inject 1 mL by intramuscul ar route. No 1mL dexamethas one sodium phosphate 4 mg/mL injection solution Inject 1 mL by intramuscu lar route. [facility] ketorolac 30 mg/mL (1 mL) injection solution Inject 1 mL by intramuscul ar route. ketorolac 30 mg/mL (1 mL) injection solution Inject 1 mL by intramuscul ar route. No 1mL ketorolac 30 mg/mL (1 mL) injection solution Inject 1 mL by intramuscu lar route. [facility] Macrobid 100 mg capsule Take 1 capsule every 12 hours by oral route. Macrobid 100 mg capsule Take 1 capsule every 12 hours by oral route. No 1capsul e(s) Q12H Macrobid 100 mg capsule Take 1 capsule every 12 hours by oral route. [facility] omeprazole 40 mg capsule,del ayed release Take 1 capsule every day by oral route. omeprazole 40 mg capsule,del ayed release Take 1 capsule every day by oral route. No 1capsul e(s) Q1D omeprazole 40 mg capsule,de layed release Take 1 capsule every day by oral route. [facility] triamcinolo ne acetonide 40 mg/mL suspension for injection Take 20 mg by injection route. triamcinolo ne acetonide 40 mg/mL suspension for injection Take 20 mg by injection route. No 20mg triamcinol one acetonide 40 mg/mL suspension for injection Take 20 mg by injection route. [facility] trospium 20 mg tablet Take 1 tablet twice a day by oral route. trospium 20 mg tablet Take 1 tablet twice a day by oral route. No 1 BID trospium 20 mg tablet Take 1 tablet twice a day by oral route. [facility] venlafaxine ER 150 mg capsule,ext ended release 24 hr Take 1 capsule every day by oral route. venlafaxine ER 150 mg capsule,ext ended release 24 hr Take 1 capsule every day by oral route. No 1capsul e(s) Q1D venlafaxin e ER 150 mg capsule,ex tended release 24 hr Take 1 capsule every day by oral route. [facility] venlafaxine ER 75 mg capsule,ext ended release 24 hr Take 1 capsule every day by oral route. venlafaxine ER 75 mg capsule,ext ended release 24 hr Take 1 capsule every day by oral route. No 1capsul e(s) Q1D venlafaxin e ER 75 mg capsule,ex tended release 24 hr Take 1 capsule every day by oral route. [facility] Vitamin D2 1,250 mcg (50,000 unit) capsule Take 1 capsule every week by oral route. Vitamin D2 1,250 mcg (50,000 unit) capsule Take 1 capsule every week by oral route. No 1capsul e(s) Q1W Vitamin D2 1,250 mcg (50,000 unit) capsule Take 1 capsule every week by oral route. [facility] amlodipine 10 mg tablet Take 1 tablet every day by oral route. amlodipine 10 mg tablet Take 1 tablet every day by oral route. No 1 Q1D amlodipine 10 mg tablet Take 1 tablet every day by oral route. [facility] dexamethaso ne sodium phosphate 4 mg/mL injection solution Inject 1 mL by intramuscul ar route. dexamethaso ne sodium phosphate 4 mg/mL injection solution Inject 1 mL by intramuscul ar route. No 1mL dexamethas one sodium phosphate 4 mg/mL injection solution Inject 1 mL by intramuscu lar route. [facility] ketorolac 30 mg/mL (1 mL) injection solution Inject 1 mL by intramuscul ar route. ketorolac 30 mg/mL (1 mL) injection solution Inject 1 mL by intramuscul ar route. No 1mL ketorolac 30 mg/mL (1 mL) injection solution Inject 1 mL by intramuscu lar route. [facility] Macrobid 100 mg capsule Take 1 capsule every 12 hours by oral route. Macrobid 100 mg capsule Take 1 capsule every 12 hours by oral route. No 1capsul e(s) Q12H Macrobid 100 mg capsule Take 1 capsule every 12 hours by oral route. [facility] omeprazole 40 mg capsule,del ayed release Take 1 capsule every day by oral route. omeprazole 40 mg capsule,del ayed release Take 1 capsule every day by oral route. No 1capsul e(s) Q1D omeprazole 40 mg capsule,de layed release Take 1 capsule every day by oral route. [facility] paroxetine 30 mg tablet Take 1 tablet every day by oral route as directed for 90 days. paroxetine 30 mg tablet Take 1 tablet every day by oral route as directed for 90 days. No 1 Q1D paroxetine 30 mg tablet Take 1 tablet every day by oral route as directed for 90 days. [facility] Vital Signs Vital Name Observation Time Observation Value Comments S ource height 2024-03-26 13:00:00 66 [in_i] [facility] weight 2024-03-26 13:00:00 298.8 [lb_av] [facility] temperature 2024-03-26 13:00:00 97.2 [degF] [facility] bmi 2024-03-26 13:00:00 48.22 kg/m2 [facility] oximetry 2024-03-26 13:00:00 93 % [facility] blood pressure systolic 2024-03-26 13:00:00 137 mm[Hg] [facility] blood pressure diastolic 2024-03-26 13:00:00 70 mm[Hg] [facility] height 2024-02-03 08:00:00 66 [in_i] [facility] weight 2024-02-03 08:00:00 286.4 [lb_av] [facility] temperature 2024-02-03 08:00:00 98.1 [degF] [facility] bmi 2024-02-03 08:00:00 46.22 kg/m2 [facility] oximetry 2024-02-03 08:00:00 95 % [facility] blood pressure systolic 2024-02-03 08:00:00 154 mm[Hg] [facility] blood pressure diastolic 2024-02-03 08:00:00 74 mm[Hg] [facility] height 2023-11-14 13:40:00 66 [in_i] [facility] weight 2023-11-14 13:40:00 277.0 [lb_av] [facility] temperature 2023-11-14 13:40:00 97.3 [degF] [facility] bmi 2023-11-14 13:40:00 44.7 kg/m2 [facility] oximetry 2023-11-14 13:40:00 86 % [facility] blood pressure systolic 2023-11-14 13:40:00 146 mm[Hg] [facility] blood pressure diastolic 2023-11-14 13:40:00 88 mm[Hg] [facility] Systolic blood pressure 2023-11-07 22:19:00 140 mm[Hg] [facility] Diastolic blood pressure 2023-11-07 22:19:00 94 mm[Hg] [facility] Heart rate 2023-11-07 22:19:00 79 /min [facility] Body temperature 2023-11-07 22:19:00 37.5 Keyana [facility] Respiratory rate 2023-11-07 22:19:00 22 /min [facility] Oxygen saturation in Arterial blood by Pulse oximetry 2023-11-07 22:19:00 90 /min [facility] Body height 2023-11-07 19:22:00 167.6 cm [facility] Body weight 2023-11-07 19:22:00 126.554 kg [facility] BMI 2023-11-07 19:22:00 45.03 kg/m2 [facility] Systolic blood pressure 2023-10-31 13:51:00 126 mm[Hg] [facility] Diastolic blood pressure 2023-10-31 13:51:00 79 mm[Hg] [facility] Heart rate 2023-10-31 13:51:00 89 /min [facility] Body height 2023-10-31 13:51:00 167.6 cm [facility] Body weight 2023-10-31 13:51:00 126.644 kg [facility] BMI 2023-10-31 13:51:00 45.06 kg/m2 [facility] Oxygen saturation in Arterial blood by Pulse oximetry 2023-10-31 13:51:00 89 /min [facility] Systolic blood pressure 2023-10-10 19:03:00 116 mm[Hg] [facility] Diastolic blood pressure 2023-10-10 19:03:00 59 mm[Hg] [facility] Heart rate 2023-10-10 19:03:00 79 /min [facility] Body temperature 2023-10-10 19:03:00 37.11 Keyana [facility] Respiratory rate 2023-10-10 19:03:00 19 /min [facility] Body height 2023-10-10 19:03:00 167.6 cm [facility] Body weight 2023-10-10 19:03:00 124.422 kg [facility] BMI 2023-10-10 19:03:00 44.27 kg/m2 [facility] Oxygen saturation in Arterial blood by Pulse oximetry 2023-10-10 19:03:00 92 /min pt was put on 3L [facility] height 2023-10-07 09:00:00 66 [in_i] [facility] weight 2023-10-07 09:00:00 262.0 [lb_av] [facility] temperature 2023-10-07 09:00:00 97.4 [degF] [facility] bmi 2023-10-07 09:00:00 42.28 kg/m2 [facility] oximetry 2023-10-07 09:00:00 92 % [facility] blood pressure systolic 2023-10-07 09:00:00 129 mm[Hg] [facility] blood pressure diastolic 2023-10-07 09:00:00 69 mm[Hg] [facility] BP Diastolic 2022-07-18 00:00:00 90 mm[Hg] [facility] Height 2022-07-18 00:00:00 66 [in_i] [facility] BP Systolic 2022-07-18 00:00:00 144 mm[Hg] [facility] BP Diastolic 2022-06-06 00:00:00 85 mm[Hg] [facility] Height 2022-06-06 00:00:00 66 [in_i] [facility] BP Systolic 2022-06-06 00:00:00 149 mm[Hg] [facility] BP Diastolic 2022-05-20 00:00:00 81 mm[Hg] [facility] Height 2022-05-20 00:00:00 66 [in_i] [facility] BMI (Body Mass Index) 2022-05-20 00:00:00 42.8 kg/m2 [facility] BP Systolic 2022-05-20 00:00:00 173 mm[Hg] [facility] Body Weight 2022-05-20 00:00:00 4240 [oz_av] [facility] BP Diastolic 2022-05-14 00:00:00 96 mm[Hg] [facility] Height 2022-05-14 00:00:00 66 [in_i] [facility] BP Systolic 2022-05-14 00:00:00 177 mm[Hg] [facility] BP Diastolic 2022-04-15 00:00:00 93 mm[Hg] [facility] Height 2022-04-15 00:00:00 66 [in_i] [facility] BP Systolic 2022-04-15 00:00:00 171 mm[Hg] [facility] Height 2021-12-03 00:00:00 66 [in_i] [facility] Body Temperature 2024-03-23 14:07:00 98.10 degrees Alexy Cabrera Heart Rate 2024-03-23 14:07:00 83.00 /min Alexy Cabrera Respiratory Rate 2024-03-23 14:07:00 Alexy Cabrera BP Systolic 2024-03-23 14:07:00 158 mm[Hg] Alexy Cabrera BP Diastolic 2024-03-23 14:07:00 86 mm[Hg] Alexy Cabrera Weight Measured 2024-03-23 14:07:00 296.00 pounds Alexy Cabrera Height Measured 2024-03-23 14:07:00 66.00 inches Alexy Cabrera Procedures Procedure Date / Time Performed Performing Clinician Source CT THORAX WO CONTRAST 2023-12-18 17:03:00 Townsend, Trinidad anna [facility] CT CHEST PULMONARY ANGIOGRAM 2023-11-07 21:52:32 Roberto [facility] LIPASE 2023-11-07 20:17:[address] [facility] [facility] TROPONIN I 2023-11-07 20:17:00 Roberto Kacey [facility] COMP. METABOLIC PANEL (41016) 2023-11-07 20:17:00 Roberto [facility] CBC WITH DIFF 2023-11-07 20:17:00 Roberto [facility] D-DIMER 2023-11-07 20:17:00 Roberto [facility] URINALYSIS 2023-11-07 20:17:00 Roberto [facility] N-TERMINAL PRO-BNP 2023-11-07 20:17:00 Roberto [facility] XR CHEST 1 VW 2023-11-07 20:03:00 Roberto [facility] TRANSTHORACIC ECHO (TTE) COMPLETE W/ CONTRAST 2023-11-07 19:18:00 [facility] CAROTID DUPLEX BILATERAL - BY VASCULAR LAB 2023-11-07 18:32:21 [facility] XR CHEST 2 VW 2023-10-10 20[facility]56[facility] RHYTHM STRIP 2023-10-10 19:06:05 [facility] HB ECG ROUTINE & RHYTHM STRIP 2023-10-10 19:06:05 [facility] XR, chest, 3 view 2022-06-06 00:00:00 [facility] SCREENING MAMMOGRAPHY BOTH BREASTS INCLUDING COMPUTER AIDED DETECTION 2022-05-20 00:00:00 [facility] US, breast, bilateral 2022-01-02 00:00:00 [facility] MAMMO, diagnostic, digital, bilateral 2022-01-02 00:00:00 [facility] Plan of Care Planned Activity Planned Date Details Comments Source Diagnostic Test Pending 2022-05-20 00:00:00 Mucor racemosus IgE Ab [Units/volume] in Serum [code = 6182-0] [facility] Encounters Start Date/Time End Date/Time Encounter Type Admission Type Attending [facility] Care Department Encounter ID Source 2024-03-26 13:09:00 Outpatient Sd [facility] [id number] [facility] 2024-03-03 12:40:00 Outpatient Sd [facility] ST[facility] [id number] [facility] 2024-01-29 10:43:01 Outpatient Sd Murphy [facility] [id number] [facility] 2024-01-28 12:32:00 Outpatient Sd Murphy [facility] [id number] [facility] 2023-12-11 08:45:01 Outpatient Sd [facility] [id number] [facility] 2023-10-07 08:24:02 Outpatient Sd Murphy [facility] [id number] [facility] 2024-04-14 00:00:00 2024-04-14 00:00:00 (TEL) STLMLC STLMLC [id number] [facility] 2024-04-09 00:00:00 2024-04-09 00:00:00 (TEL) STLMLC STLMLC [id number] [facility] 2024-03-31 14:56:10 2024-03-31 14:56:10 Outpatient SFA AICHA [id number] Alexy Cabrera 2024-03-26 00:00:00 2024-03-26 00:00:00 OFFICE VISIT ESTAB PT LEVEL 4 STLMLC STLMLC [id number] [facility] 2024-03-25 00:00:00 2024-03-25 00:00:00 (TEL) STLMLC STLMLC [id number] [facility] 2024-03-24 13:02:46 2024-03-24 13:02:[address] [facility] [id number] Alexy Cabrera 2024-03-23 14:07:35 2024-03-23 14:07:[address] [facility] [id number] Alexy Cabrera 2024-03-23 00:00:00 2024-03-23 00:00:00 Outpatient Visit SFA AICHA [id number] Alexy Cabrera 2024-02-05 00:00:00 2024-02-05 00:00:00 (TEL) STLMLC STLMLC [id number] [facility] 2024-02-03 00:00:00 2024-02-03 00:00:00 OFFICE VISIT ESTAB PT LEVEL 4 STLMLC STLMLC [id number] [facility] 2024-01-29 00:00:00 2024-01-29 00:00:00 (TEL) STLMLC STLMLC [id number] [facility] 2024-01-28 00:00:00 2024-01-28 00:00:00 (TEL) STLMLC STLMLC [id number] [facility] 2023-12-18 11:18:07 2023-12-18 23:59:00 Outpatient R RADIOLOGY [facility] [id number] [facility] 2023-12-18 11:15:00 2023-12-18 23:59:00 Hospital Encounter Radiology Radiology [facility] ..840.114 350.1.13.10 4.2.7.2.686 [id number] [facility] 2023-11-02 00:00:00 2023-12-06 18:23:07 Patient Secure Shiva Carrerachris [facility] 1..840.114 350.1.13.10 4.2.7.2.686 [id number] [facility] 2023-11-18 00:00:00 2023-11-18 00:00:00 [facility]TEL[facility] [id number] 2023-11-14 00:00:00 2023-11-14 00:00:00 (ESTPTWM) Establishe d PT Women [facility] [id number] [facility] 2023-11-11 13:00:00 2023-11-11 13:00:00 Outpatient Bebeto [facility] [id number] [facility] 2023-11-08 00:00:00 2023-11-11 11:28:14 Patient Secure Msg Christina [facility] PROFESSIO NAL BUILDING 1.2.840.114 350.1.13.10 4.2.7.2.686 [id number] [facility] 2023-11-07 14:24:00 2023-11-07 18:01:00 Emergency X KACEY NOBLE [facility] ERT [id number] [facility] 2023-11-07 14:24:00 2023-11-07 18:01:00 Emergency Kacey Noble [facility] 1.2.840.114 350.1.13.10 4.2.7.2.686 [id number] [facility] 2023-11-07 12:49:29 2023-11-07 14:23:00 [facility] 1.2.840.114 350.1.13.10 4.2.7.2.686 [id number] [facility] 2023-11-07 12:49:18 2023-11-07 14:23:00 Outpatient R [facility] [id number] [facility] 2023-11-07 12:49:18 2023-11-07 14:23:00 Hospital Encounter Christina, Qiangjun [facility] NAL BUILDING 1.2.840.114 350.1.13.10 4.2.7.2.686 [id number] [facility] 2023-10-31 09:45:00 2023-10-31 10:00:00 Senior Credit Analyst Visit Lab, Mekhi Powell Lab, Baltazar Alonso [facility] MEDICAL OFFICE BUILDING 1.2.840.114 350.1.13.10 4.2.7.2.686 [id number] [facility] 2023-10-31 08:40:00 2023-10-31 09:42:47 Outpatient MEKHI ARAUZ HOW[facility] [id number] [facility] 2023-10-31 08:40:00 2023-10-31 09:42:47 Office Visit Mekhi Senior [facility] 1.2.840.114 350.1.13.10 4.2.7.2.686 [id number] [facility] 2023-10-30 00:00:00 2023-10-30 00:00:00 (TEL) STLC STLC [id number] [facility] 2023-10-28 00:00:00 2023-10-28 00:00:00 (TEL) STLC STLMLC [id number] [facility] 2023-10-27 00:00:00 2023-10-27 00:00:00 (TEL) STLC STLMLC [id number] [facility] 2023-10-21 00:00:00 2023-10-21 00:00:00 (TEL) STLC STLMLC [id number] [facility] 2023-10-17 14:00:00 2023-10-17 14:00:00 [facility] [id number] 2023-10-16 00:00:00 2023-10-16 00:00:00 (TEL) STLC STLC [id number] [facility] 2023-10-13 00:00:00 2023-10-13 13:31:31 [facility] 1.2.840.114 350.1.13.10 4.2.7.2.686 [id number] [facility] 2023-10-13 00:00:00 2023-10-13 10:28:41 [facility] 1.2.840.114 350.1.13.10 4.2.7.2.686 [id number] [facility] 2023-10-13 00:00:00 2023-10-13 10:10:09 Telephone Christina [facility] BUILDING 1.2.840.114 350.1.13.10 4.2.7.2.686 [id number] [facility] 2023-10-13 00:00:00 2023-10-13 00:00:00 [facility]TEL) [facility] [id number] [facility] 2023-10-10 15:15:00 2023-10-10 23:59:00 [facility] 1.2.840.114 350.1.13.10 4.2.7.2.686 [id number] [facility] 2023-10-10 13:40:00 2023-10-10 15:09:32 [facility] 1.2.840.114 350.1.13.10 4.2.7.2.686 [id number] [facility] 2023-10-10 13:40:00 2023-10-10 15:09:32 [facility] [id number] [facility] 2023-10-10 14:45:00 2023-10-10 15:00:00 Senior Credit Analyst Visit 2, [facility] 1.2.840.114 350.1.13.10 4.2.7.2.686 [id number] [facility] 2023-10-09 00:00:00 2023-10-10 11:03:41 Telephone Mekhi Senior [facility] 1.2.840.114 350.1.13.10 4.2.7.2.686 [id number] [facility] 2023-10-07 00:00:00 2023-10-07 00:00:00 OFFICE VISIT NEW PT LEVEL 4 STLMLC STLMLC [id number] [facility] 2023-03-11 00:00:00 2023-03-11 00:00:00 Outpatient GC_LEH_Le_D PRIV PRIV [id number] [facility] 2023-03-06 00:00:00 2023-03-06 00:00:00 Outpatient GC_LEH_Le_D PRIV PRIV [id number] [facility] 2023-01-22 00:00:00 2023-01-22 00:00:00 Outpatient GC_LEH_Le_D PRIV PRIV [id number] [facility] 2023-01-17 00:00:00 2023-01-17 00:00:00 Outpatient GC_LEH_Le_D PRIV PRIV [id number] [facility] 2023-01-16 00:00:00 2023-01-16 00:00:00 Outpatient GC_LEH_Le_D PRIV PRIV [id number] [facility] 2022-10-17 00:00:00 2022-10-17 00:00:00 Outpatient GC_LEH_Le_D PRIV PRIV [id number] [facility] 2022-10-07 00:00:00 2022-10-07 00:00:00 Outpatient GC_LEH_Le_D PRIV PRIV [id number] [facility] 2022-09-03 00:00:00 2022-09-03 00:00:00 Outpatient GC_LEH_Le_D PRIV PRIV [id number] [facility] 2022-08-09 00:00:00 2022-08-09 00:00:00 Outpatient GC_LEH_Le_D PRIV PRIV [id number] [facility] 2022-08-09 00:00:00 2022-08-09 00:00:00 Outpatient GC_LEH_Le_D PRIV PRIV [id number] [facility] 2022-07-18 00:00:00 2022-07-18 00:00:00 Demario Mckenna, ROAD MIXER OPERATOR: [address] [place] [address] , Ph. [facility] - GC_LEH_[place] Office* [id number] [facility] 2022-07-09 00:00:00 2022-07-09 00:00:00 Outpatient GC_LEH_Le_D PRIV PRIV [id number] [facility] 2022-06-10 00:00:00 2022-06-10 00:00:00 Outpatient GC_LEH_Le_D PRIV PRIV [id number] [facility] 2022-06-06 00:00:00 2022-06-06 00:00:00 Outpatient GC_LEH_Le_D PRIV PRIV [id number] [facility] 2022-06-06 00:00:00 2022-06-06 00:00:00 Demario Mckenna, ROAD MIXER OPERATOR: [address] [place] [address] , Ph. [facility] - GC_LEH_[place] Office* [id number] [facility] 2022-06-02 00:00:00 2022-06-02 00:00:00 Outpatient GC_LEH_Le_D PRIV PRIV [id number] [facility] 2022-05-20 00:00:00 2022-05-20 00:00:00 Outpatient GC_LEH_Le_D PRIV PRIV [id number] [facility] 2022-05-20 00:00:00 2022-05-20 00:00:00 Outpatient GC_LEH_Le_D PRIV PRIV [id number] [facility] 2022-05-20 00:00:00 2022-05-20 00:00:00 Shawn Sinclair MD: [address] [place] [phone] , Ph. [facility] - GC_LEH_[place] Office [id number] [facility] 2022-05-14 00:00:00 2022-05-14 00:00:00 Demario Mckenna, ROAD MIXER OPERATOR: [address] [place] [address] , Ph. [facility] - GC_LEH_[place] Office* [id number] [facility] 2022-04-15 00:00:00 2022-04-15 00:00:[address] MIXER OPERATOR: [address] [place] [address] , Ph. [facility] - GC_LEH_[place] Office* [id number] [facility] 2022-03-22 00:00:00 2022-03-22 00:00:00 Outpatient GC_LEH_Le_D PRIV PRIV [id number] [facility] 2022-03-22 00:00:00 2022-03-22 00:00:00 Outpatient GC_LEH_Le_D PRIV PRIV [id number] [facility] 2022-01-09 00:00:00 2022-01-09 00:00:00 Outpatient GC_LEH_Le_D PRIV PRIV [id number] [facility] 2022-01-02 00:00:00 2022-01-02 00:00:00 Outpatient GC_LEH_Le_D PRIV PRIV [id number] [facility] 2022-01-02 00:00:00 2022-01-02 00:00:00 Demario Mckenna, ROAD MIXER OPERATOR: [address] [place] [address] , Ph. [facility] - GC_LEH_[place] Office* [id number] [facility] 2021-12-06 00:00:00 2021-12-06 00:00:00 Outpatient GC_LEH_Le_D PRIV PRIV [id number] [facility] 2021-12-06 00:00:00 2021-12-06 00:00:00 Demario Mckenna, ROAD MIXER OPERATOR: [address] [place] [address] , Ph. [facility] - GC_LEH_[place] Office* [id number] [facility] 2021-12-04 00:00:00 2021-12-04 00:00:00 Outpatient GC_LEH_Le_D PRIV PRIV [id number] [facility] 2021-12-03 00:00:00 2021-12-03 00:00:00 Outpatient GC_LEH_Le_D PRIV PRIV [id number] [facility] 2021-12-03 00:00:00 2021-12-03 00:00:00 Demario Mckenna, ROAD MIXER OPERATOR: [address] [place] [address] , Ph. [facility] - GC_LEH_[place] Office* [id number] [facility] 2021-11-29 00:00:00 2021-11-29 00:00:00 Outpatient GC_LEH_Le_D PRIV PRIV [id number] [facility] Results Test Description Test Time Test Comments Results Result Comments Source CT THORAX WO CONTRAST 17:31:52 HISTORY: Follow-up of abnormal CT chest. TECHNIQUE: 64-Multidetector noncontrast enhanced CT of the chest isobtained. FINDINGS: Comparison made with 11/07/2023 study. Previously describedmultifocal infiltrates so significant interval improvement. At this timelinear areas of fibrosis noted involving very small portions of theposterior upper right lobe, posterior right apical lung, anterior rightupper lobe, anteromedial right upper lobe, small portions of lingula andright middle lobe. No focal pulmonary nodules. No pleural effusion orpericardial effusion. Subcentimeter slightly irregular shaped emphysematous bulla noted in theright lower lung, unchanged. Trachea and central bronchial airways appearnormal. Prominent lymph nodes surrounding the trachea, jacky and subcarinal regionshas significantly regressed since the previous study. Visualized portions of the thyroid gland appear unremarkable. Air is seenin the upper thoracic esophagus as well as in the lower thoracic esophagus.Sleeve gastrectomy and Dave-en-Y gastrojejunostomy changes as well ascholecystectomy noted. Midthoracic kyphosis with degenerative spondylosis noted. No compressionfracture in the thoracic vertebral bodies or any aggressive bone lesionsvisualized. CONCLUSIONS: 1. Significant interval improvement in abnormal findings seen in this11/07/2023 study. At this time, small areas of fibrosis noted in both lungsand subcentimeter lymph nodes are seen surrounding the trachea.2. Unchanged cystic lesion adjacent to left lobe of the liver. [facility] [id number] 22:26:36CT SCAN OF THE CHEST WITH CONTRAST 11/07/2023 4:36 PM TECHNIQUE: Multidetector helical CT scan of the chest was performedfollowing the intravenous administration of contrast. Coronal and sagittalreformats as well axial MIPs imaging were acquired. CLINICAL INFORMATION: PE suspected, intermediate prob, positive D-dimer COMPARISON: Chest x-ray performed on the same date FINDINGS: CARDIOVASCULAR: The enhancement of the pulmonary artery is adequate. Nopulmonary emboli to the level of subsegmental pulmonary arteries.Main pulmonary artery measures 3.2 cm. The thoracic aorta is normal incaliber. Mild atherosclerotic change in the aorta.The cardiac size is normal. ?No pericardial effusion. There is tracecoronary artery calcification. LYMPH NODES: Enlarged right paratracheal lymph nodes, measuring up to 2.8 x1.7 cm. Several borderline aorticopulmonary and prevascular lymph nodes.Enlarged subcarinal lymph node measuring 1.8 cm. Bilateral mildly enlargedhilar lymph nodes. MEDIASTINUM/ LOWER NECK: ?No mediastinal mass is seen.. No actionablethyroid nodule is present. BRONCHOPULMONARY/PLEURA: The central airways are patent. Diffuse mosaic appearance to the lungs withunderlying air trapping. 7 mmphlebolith or pneumatocele at the right lowerlobe. Multinodular consolidation in the perihilar right upper lobe withsurrounding groundglass opacity. 11 mm solid nodule with surroundinggroundglass opacity at the right lower lobe. Perivascular wedge-shapedconsolidation with air bronchograms and peribronchial thickening at theright lower lobe. Wedge-shaped areas of consolidation with atelectasis andair bronchograms in the lingula and medial left lower lobe. Scatteredadditional groundglass, reticulonodular and linear opacities in the lungs.No definite bronchiectasis. .No pleural effusion. No pneumothorax. UPPER ABDOMEN: Partially visualized cystic lesion anterior to the lefthepatic lobe of uncertain etiology. Postoperative change of gastric bypass.Spleen is at the upper limits of normal in size as visualized BONES/ CHEST WALL: No aggressive or acute abnormalities. Degenerativechange involving the spine is present.[facility] [id number] 21:24:07* Test Item Value Reference Range Interpretation Comme nts TROPONIN I (test code = 5053917152) 0.008 ng/mL <=0.034 LIDA (test code = LIDA) Reference (Normal) Range (defined by the 99th percentile reference limit): <= 0.034 ng/mL Note: Cardiac troponin begins to rise 3-4 hours after the onset of ischemia. Repeat in 4-6 hours if the sample was drawn within 3-4 hours of the onset of the symptom and found normal. Diagnosis of myocardial injury is made with acute changes in cTn concentrations with at least one serial sample above the 99th percentile upper reference limit (URL), taken together with the patient's clinical presentation. Biotin has been reported to cause a negative bias, interpret results relative to patient's use of biotin. Lab Interpretation (test code = 30814-7) [facility] [id number] 21:21:45* Test Item Value Reference Range Interpretation Comme nts NT-proBNP (test code = 53613-3) 258 pg/mL <=125 LIDA (test code = LIDA) Result Indeterminate-Consid er causes of NT-proBNP elevation other than Heart failure such as acute coronary syndrome, pulmonary embolism, pulmonary hypertension, sepsis, stroke, and renal dysfunction. Lab Interpretation (test code = 32309-8) Abnormal [facility]. METABOLIC PANEL ([id number])2023-11-07 21:13:24* Test Item Value Reference Range Interpretation Comme nts NA (test code = 4150367223) 132 mmol/L 135-145 L K (test code = 2077876753) 3.7 mmol/L 3.5-5.0 CL (test code = 1967107659) 94 mmol/L 98-108 L CO2 TOTAL (test code = 8566082819) 31 mmol/L 23-31 AGAP (test code = 0445546773) 7 2-16 BUN (test code = 3397671305) 10 mg/dL 7-23 GLUCOSE (test code = 1070522804) 120 mg/dL 70-110 H CREATININE (test code = 2160-0) 0.72 mg/dL 0.50-1.04 TOTAL BILI (test code = 0764701024) 0.9 mg/dL 0.1-1.1 CALCIUM (test code = 2614934698) 8.4 mg/dL 8.6-10.6 L T PROTEIN (test code = 2746443429) 8.4 g/dL 6.3-8.2 H ALBUMIN (test code = 8681730286) 4.0 g/dL 3.5-5.0 ALK PHOS (test code = 1140489866) 114 U/L 34-122 ALTv (test code = 1742-6) 47 U/L 5-35 H AST(SGOT) (test code = 9749713956) 54 U/L 13-40 H eGFR (test code = 77404-0) 100.7 mL/min/1.73m2 CKD-EPI eGFR (2020). Assuming creatinine has been stable day-to-day for at least three months, the eGFR indicates Category G1 (>= 90 mL/min/1.73 m2) Lab Interpretation (test code = 15899-3) Abnormal [facility] HospitalLIPASE, [id number] 21:13:03* Test Item Value Reference Range Interpretation Comme nts LIPASE (test code = 9490586180) 31 U/L 0-220 Lab Interpretation (test cod e = 43863-4) Normal [facility] HospitalD-[id number] 21:10:24* Test Item Value Reference Range Interpretation Comments D-DIMER (test code = 6439150541) 2.29 See_Comment H [Automated message] The system which generated this result transmitted reference range: <0.50 ?g/mL (FEU). The reference range was not used to interpret this result as normal/abnormal. LIDA (test code = LIDA) This test may be used in conjunction with a clinical pretest probability (PTP) assessment model to exclude venous thromboembolism (VTE) in patients suspected of deep venous thrombosis (DVT) and pulmonary embolism (PE) A D-Dimer value less than 0.50 ?g/ml (FEU) has a negative predicative value of 96 to 100% (95% CI)and 97 to 100% (95% CI) as an aid in the diagnosis of deep vein thrombosis (DVT) and pulmonary embolism when there is low or moderate pretest probability of PE or DVT. D-Dimer values are expressed in initial fibrinogen equivalent units (FEU)" The assay results should be used with other information, including the clinical context, in forming a diagnosis. Lab Interpretation (test code = 94553-1) Abnormal [facility] HospitalCBC WITH [id number] 20:55:53* Test Item Value Reference Range Interpretation Comme nts WBC (test code = 6690-2) 9.86 4.30-11.10 RBC (test code = 789-8) 5.25 3.93-5.25 HGB (test code = 718-7) 14.9 g/dL 11.6-15.0 HCT (test code = 4544-3) 47.9 % 35.7-45.2 H MCV (test code = 787-2) 91.2 fL 80.6-95.5 MCH (test code = 785-6) 28.4 pg 25.9-32.8 MCHC (test code = 786-4) 31.1 g/dL 31.6-35.1 L RDW-SD (test code = 13333-2) 49.7 fL 39.0-49.9 RDW-CV (test code = 788-0) 14.8 % 12.0-15.5 PLT (test code = 777-3) 254 166-358 MPV (test code = 96158-4) 9.7 fL 9.5-12.9 NRBC/100 WBC (test code = 1286984451) 0.0 0.0-10.0 NRBC x10^3 (test code = 5179186013) See_Comment [Automated messa ge] The system which generated this result transmitted reference range: 10*3/?L. The reference range was not used to interpret this result as normal/abnormal. GRAN MAT (NEUT) % (test code = 770-8) 74.6 % IMM GRAN % (test code = 4494577223) 0.60 % LYMPH % (test code = 736-9) 15.1 % MONO % (test code = 5905-5) 8.3 % EOS % (test code = 713-8) 1.0 % BASO % (test code = 706-2) 0.4 % GRAN MAT x10^3(ANC) (test code = 5293568694) 7.35 10*3/uL 1.88-7.09 H IMM GRAN x10^3 (test code = 6143002960) 0.06 10*3/uL 0.00-0.06 LYMPH x10^3 (test code = 731-0) 1.49 10*3/uL 1.32-3.29 MONO x10^3 (test code = 742-7) 0.82 10*3/uL 0.33-0.92 EOS x10^3 (test code = 711-2) 0.10 10*3/uL 0.03-0.39 BASO x10^3 (test code = 704-7) 0.04 10*3/uL 0.01-0.07 Lab Interpretation (test code = 15695-1) Abnormal [facility] HospitalXR [facility] 1 [id number] 20:28:03EXAM: XR CHEST 1 11/07/2023 2:53 PM HISTORY: 53 years-old Female with chest pain and productive cough . TECHNIQUE: Portable AP view of the chest. COMPARISON: 10/10/2023 FINDINGS: Lines and tubes: None. Cardiomediastinal: The cardiac silhouette is normal in size. The pulmonaryvasculature appears borderline. Atherosclerotic change is present withinthe aorta. Lungs and pleura: Decreased lung volumes. Unchanged opacity at the leftlung base may be prominent epicardial fat pad and scarring or subsegmentalatelectasis. Possible new small right perihilar opacity in the mid lung.Otherwise diffuse interstitial coarsening and peribronchial thickening isstable and bronchitis or smoking related changes. Included osseous structures show no acute abnormality.[facility] 2 [id number] 22:28:53EXAM: XR CHEST 2 10/10/2023 3:49 PM HISTORY: 53 years-old Female with HF . TECHNIQUE: PA and lateral chest radiographs. COMPARISON: None. FINDINGS: Lungs and pleura: The lungs are adequately expanded. Prominentbronchovascular markings and peribronchial cuffing, likely associated withsmoking related changes. No definite focal opacities. Unremarkableappearance of the pleura. Heart/Mediastinum: Normal heart size. Aortic arch calcification. Bones and soft tissues: Mild degenerative changes of thespine. Osteopenia.[facility]rogen [Mass/volume] in Serum or [id number] 00:00:00* Test Item Value Reference Range Interpretation Comme nts estradiol (test code = estradiol) 15.81 pg/mL see below estriol, unconjugated (test code = estriol, unconjugated) <0.1 see below estrone (E1), serum (test co de = estrone (E1), serum) <5.0 see below [facility] MedicalThyroglobulin Ab [Units/volume] in Serum or [id number] 00:00:00* Test Item Value Reference Range Interpretation Comme nts anti-thyroglobulin (test cod e = anti-thyroglobulin) <20 <40 [facility]2023-03-07 00:00:00* Test Item Value Reference Range Interpretation Comme nts A/G ratio (test code = A/G ratio) 1.5 ratio 1.1-2.9 albumin (test code = albumin) 4.2 g/dL 3.5-5.2 alk phos (test code = alk phos) 128 U/L 40-156 ALT (test code = ALT) 12 U/L <33 AST (test code = AST) 18 U/L <32 bilirubin, total (test code = bilirubin, total) <0.2 <1.2 BUN (test code = BUN) 10 mg/dL 6-20 BUN/creat ratio (test code = BUN/creat ratio) 12.8 ratio 10.0-28.0 calcium (test code = calcium) 9.3 mg/dL 8.6-10.4 chloride (test code = chloride) 99 mmol/L 96-108 chol/HDL ratio (test code = chol/HDL ratio) 6.8 <5.8 A cholesterol (test code = cholesterol) 291 mg/dL <200 H CO2 (test code = CO2) 22 mmol/L 22-29 creatinine (test code = creatinine) 0.78 mg/dL 0.49-1.02 E-GFR (test code = E-GFR) 88 mL/min See_Comment [thesweetlink] The system which generated this result transmitted reference range: >or=60. The reference range was not used to interpret this result as normal/abnormal. E-GFR, (test code = E-GFR, ) 102 mL/min See_Comment [thesweetlink] The system which generated this result transmitted reference range: >or=60. The reference range was not used to interpret this result as normal/abnormal. globulin (test code = globulin) 2.8 g/dL 1.7-3.7 glucose (test code = glucose) 143 mg/dL 70-99 H HDL % of cholesterol (test code = HDL % of cholesterol) 15 % >14 HDL chol., direct (test code = HDL chol., direct) 43 mg/dL >50 L Hemoglobin A1c/Hemoglobin.total in Blood (test code = 4548-4) 5.9 % <5.7 H LDL/HDL ratio (test code = LDL/HDL ratio) 4.51 <3.56 H WBC (test code = WBC) 9.49 x10(3)/uL 4.00-10.10 RBC (test code = RBC) 4.82 x10(6)/uL 3.58-5.19 HGB (test code = HGB) 10.4 g/dL 11.0-15.5 L HCT (test code = HCT) 35.0 % 31.5-44.8 MCV (test code = MCV) 72.6 fL 78.0-98.0 L MCH (test code = MCH) 21.6 pg 25.2-32.6 L MCHC (test code = MCHC) 29.7 g/dL 31.0-34.7 L RDW (test code = RDW) 16.6 % 12.0-15.5 H platelet count (test code = platelet count) 398 x10(3)/uL 140-425 lymphs (test code = lymphs) 26.7 % 13.7-50.9 monos (test code = monos) 5.5 % 3.0-11.9 eos (test code = eos) 0.8 % 0.0-5.0 basos (test code = basos) 0.3 % 0.0-1.0 MPV (test code = MPV) 9.0 fL 8.6-12.1 non-HDL cholesterol (test code = non-HDL cholesterol) 248 mg/dL <130 H polys (test code = polys) 66.5 % 37.1-78.1 potassium (test code = potassium) 4.6 mmol/L 3.5-5.5 sodium (test code = sodium) 138 mmol/L 135-147 total protein (test code = total protein) 7.0 g/dL 5.9-8.4 triglycerides (test code = triglycerides) 227 mg/dL <150 H VLDL, calculated (test code = VLDL, calculated) 45 mg/dL 7-32 H immature granulocytes (test code = immature granulocytes) 0.2 % 0.0-1.0 hscrp (test code = hscrp) 21.7 mg/L see below H lipoprot. (LDL) direct (test code = lipoprot. (LDL) direct) 194 mg/dL <100 H lipoprotein-A (test code = lipoprotein-A) 9.0 mg/dL <30.0 [facility] MedicalUrate [Mass/volume] in Serum or [id number] 00:00:00* Test Item Value Reference Range Interpretation Comme nts uric acid (test code = uric acid) 3.3 mg/dL 2.5-7.9 [facility] MedicalThyroperoxidase Ab [Units/volume] in Serum or [id number] 00:00:00* Test Item Value Reference Range Interpretation Comme nts anti-tpo Ab (test code = anti-tpo Ab) <10 <35 [facility] MedicalCancer Ag 125 [Units/volume] in Serum or [id number] 00:00:00 * Test Item Value Reference Range Interpretation Comme nts CA-125 (test code = CA-125) 7.9 U/mL 6.4-38.1 [facility] MedicalMagnesium [Mass/volume] in Serum or [id number] 00:00:00* Test Item Value Reference Range Interpretation Comme nts magnesium (test code = magnesium) 1.9 mg/dL 1.6-2.6 [facility] Medicalthyroid panel, [id number] 00:00:00* Test Item Value Reference Range Interpretation Comme nts TSH (test code = TSH) 1.020 uIU/mL 0.178-4.530 free T4 (test code = free T4) 1.04 NG/dL 0.80-1.73 total T4 (test code = total T4) 6.8 ug/dL 4.9-11.9 T-uptake (test code = T-uptake) 1.0 tbi 0.8-1.3 [facility] MedicalFolate+Cyanocobalamin [Interpretation] in Serum or [id number] 00:00:00* Test Item Value Reference Range Interpretation Comme nts folate (test code = folate) 9.48 NG/mL 2.00-20.00 vitamin B12 (test code = vit guerrier B12) 239.0 pg/mL 200.0-900.0 [facility] MedicalProlactin [Mass/volume] in Serum or [id number] 00:00:00* Test Item Value Reference Range Interpretation Comme nts prolactin (test code = prolactin) 14.6 NG/mL 4.8-23.3 [facility] MedicalParathyrin.intact [Mass/volume] in Serum or [id number] 00:00:00* Test Item Value Reference Range Interpretation Comme nts PTH (test code = PTH) 52.70 pg/mL 15.00-65.00 [facility] MedicalProgesterone Free [Mass/volume] in Serum or [id number] 00:00:00* Test Item Value Reference Range Interpretation Comme nts progesterone (test code = progesterone) 0.16 NG/mL [facility] MedicalIron and Iron binding capacity panel - Serum or [id number] 00:00:00* Test Item Value Reference Range Interpretation Comme nts iron (test code = iron) 26 ug/dL 37-145 L UIBC (test code = UIBC) 427 ug/dL 112-347 H TIBC (test code = TIBC) 453.0 [facility] Nswdibg83-Booxprdlkzgclz D3+25-Hydroxyvitamin D2 [Mass/volume] in Serum or [id number] 00:00:00* Test Item Value Reference Range Interpretation Comme nts vitamin D III (test code = v itamin D III) 26.6 NG/mL 32.0-100.0 L [facility] MedicalDrugs identified in Urine by Screen [id number] 00:00:00* Test Item Value Reference Range Interpretation Comments venlafaxine ur CMP (test cod e = venlafaxine ur CMP) >00419 >=5 paroxetine ur CMP (test code = paroxetine ur CMP) >1070 >=50 buspirone ur CMP (test code = buspirone ur CMP) 898 NG/mL >=25 tizanidine ur CMP (test code = tizanidine ur CMP) <5 >=5 A gabapentin ur CMP (test code = gabapentin ur CMP) >500 >=5 A hydrocodone ur CMP (test cod e = hydrocodone ur CMP) 97332 NG/mL >=100 A biodetect (test code = biodetect) expected drug-drug interaction #1 (te st code = drug-drug interaction #1) positive A drug-drug interaction #2 (te st code = drug-drug interaction #2) positive A drug-drug interaction profil e (test code = drug-drug interaction profile) >=5 >=5 amlodipine (norvasc) ddi (te st code = amlodipine (norvasc) ddi) >=5 4-hydroxy omeprazole sulfide (test code = 4-hydroxy omeprazole sulfide) >=10 paroxetine (paxil) ddi (test code = paroxetine (paxil) ddi) >=50 paroxetine metab III ddi (te st code = paroxetine metab III ddi) >=50 venlafaxine (effexor) ddi (t est code = venlafaxine (effexor) ddi) >=5 O-desmethylvenlafaxine ddi ( test code = O-desmethylvenlafaxine ddi) >=50 sn reuptake inhibitors ur ql (test code = sn reuptake inhibitors ur ql) >=5 >=5 Venlafaxine [Mass/volume] in Urine by Confirmatory method (test code = 03331-6) >5000 >=5 O-desmethylvenlafaxine [Mass/volume] in Urine by Confirmatory method (test code = 19856-4) >6000 >=50 ssri profile ur ql cfm (test code = ssri profile ur ql cfm) >=50 >=50 PARoxetine [Mass/volume] in Urine by Confirmatory method (test code = 05547-2) 577 NG/mL >=50 paroxetine metabolite II ur (test code = paroxetine metabolite II ur) >500 >=50 Buprenorphine [Presence] in Urine by Confirmatory method (test code = 57080-4) <1 >=1 Amphetamines [Presence] in U rine by Confirmatory method (test code = 55456-5) <100 >=100 Phentermine [Mass/volume] in Urine by Confirmatory method (test code = 36784-5) <250 >=250 Amphetamine [Mass/volume] in Urine by Confirmatory method (test code = 47488-6) <250 >=250 methamphet D+L ur cfm-mcnc ( test code = methamphet D+L ur cfm-mcnc) <250 >=250 Methylenedioxyamphetamine [Mass/volume] in Urine by Confirmatory method (test code = 67217-1) <100 >=100 Methylenedioxymethamphetamin e [Mass/volume] in Urine by Confirmatory method (test code = 15875-4) <100 >=100 Methylenedioxyethylamphetami ne [Mass/volume] in Urine by Confirmatory method (test code = 64339-0) <100 >=100 Benzodiazepines [Presence] i n Urine by Confirmatory method (test code = 88117-8) <50 >=50 Alpha hydroxyalprazolam [Mass/volume] in Urine by Confirmatory method (test code = 34309-2) <50 >=50 Nordiazepam [Mass/volume] in Urine by Confirmatory method (test code = 93004-2) <50 >=50 LORazepam [Mass/volume] in U rine by Confirmatory method (test code = 33125-2) <50 >=50 Oxazepam [Mass/volume] in Ur ine by Confirmatory method (test code = 52585-6) <50 >=50 Temazepam [Mass/volume] in U rine by Confirmatory method (test code = 08017-1) <50 >=50 7-Aminoclonazepam [Mass/volu me] in Urine by Confirmatory method (test code = 92688-6) <50 >=50 Hydroxyethylflurazepam [Mass/volume] in Urine by Confirmatory method (test code = 83100-5) <50 >=50 ALPRAZolam [Mass/volume] in Urine by Confirmatory method (test code = 86259-0) <50 >=50 gabapentinpregabalin ur ql c fm (test code = gabapentinpregabalin ur ql cfm) >=5 >=5 Gabapentin [Mass/volume] in Urine by Confirmatory method (test code = 81706-5) >500 >=5 Cocaine [Presence] in Urine by Confirmatory method (test code = 24995-4) <50 >=50 Opiates [Presence] in Urine by Confirmatory method (test code = 72714-5) >=100 >=100 Dihydrocodeine [Mass/volume] in Urine by Confirmatory method (test code = 41110-4) 1950 NG/mL >=100 HYDROcodone [Mass/volume] in Urine by Confirmatory method (test code = 87030-3) 5200 NG/mL >=100 Norhydrocodone [Mass/volume] in Urine by Confirmatory method (test code = 65151-6) 4520 NG/mL >=100 Codeine [Mass/volume] in Uri ne by Confirmatory method (test code = 61486-3) <100 >=100 Morphine [Mass/volume] in Ur ine by Confirmatory method (test code = 04257-4) <100 >=100 HYDROmorphone [Mass/volume] in Urine by Confirmatory method (test code = 51505-7) <100 >=100 oxyCODONE [Mass/volume] in U rine by Confirmatory method (test code = 80310-5) <100 >=100 oxyMORphone [Mass/volume] in Urine by Confirmatory method (test code = 07857-2) <100 >=100 Norcodeine [Mass/volume] in Urine (test code = 61099-1) <100 >=100 Noroxycodone [Mass/volume] i n Urine by Confirmatory method (test code = 74669-7) <100 >=100 6-Monoacetylmorphine (6-JENNIFER) [Presence] in Urine by Confirmatory method (test code = 89990-3) <10 >=10 Methadone [Presence] in Urin e by Confirmatory method (test code = 12428-4) <200 >=200 Meperidine [Presence] in Uri ne by Confirmatory method (test code = 59550-3) <100 >=100 fentaNYL+Norfentanyl [Presen ce] in Urine by Confirmatory method (test code = 26711-6) <5 >=5 Carisoprodol+Meprobamate [Pr esence] in Urine by Screen method (test code = 77654-6) <200 >=200 traMADol [Presence] in Urine by Confirmatory method (test code = 61803-0) <100 >=100 pH of Urine (test code = 2756-5) 7.09 4.5-9.0 Creatinine [Mass/volume] in Urine (test code = 2161-8) 145.1 mg/dL 20-370 Ethanol [Presence] in Urine by Screen method (test code = 63170-4) <10 >=10 tizanidine ur ql cfm (test c ode = tizanidine ur ql cfm) <5 >=5 Barbiturates [Presence] in U rine by Screen method (test code = 78636-9) <200 >=200 busprione ur ql cfm (test co de = busprione ur ql cfm) >=25 >=25 6-hydroxybuspirone ur cfm-mc nc (test code = 6-hydroxybuspirone ur cfm-mcnc) 898 NG/mL >=25 [facility] MedicalThyroglobulin Ab [Units/volume] in Serum or Urnwti6682-83-11 00:00:00* Test Item Value Reference Range Interpretation Comme nts anti-thyroglobulin (test cod e = anti-thyroglobulin) <20 <40 [facility] MedicalThyroperoxidase Ab [Units/volume] in Serum or [id number] 00:00:00* Test Item Value Reference Range Interpretation Comme nts anti-tpo Ab (test code = anti-tpo Ab) <10 <35 [facility] MedicalUrate [Mass/volume] in Serum or [id number] 00:00:00* Test Item Value Reference Range Interpretation Comme nts uric acid (test code = uric acid) 3.7 mg/dL 2.5-7.9 [facility] MedicalEstrogen [Mass/volume] in Serum or [id number] 00:00:00* Test Item Value Reference Range Interpretation Comme nts estradiol (test code = estradiol) <5.00 see below estriol, unconjugated (test code = estriol, unconjugated) <0.1 see below estrone (E1), serum (test co de = estrone (E1), serum) 8.2 pg/mL see below [facility] [id number] 00:00:00* Test Item Value Reference Range Interpretation Comme nts A/G ratio (test code = A/G ratio) 1.6 ratio 1.1-2.9 albumin (test code = albumin) 4.5 g/dL 3.5-5.2 alk phos (test code = alk phos) 145 U/L 40-156 ALT (test code = ALT) 13 U/L <33 AST (test code = AST) 19 U/L <32 bilirubin, total (test code = bilirubin, total) 0.2 mg/dL <1.2 BUN (test code = BUN) 13 mg/dL 6-20 BUN/creat ratio (test code = BUN/creat ratio) 14.3 ratio 10.0-28.0 calcium (test code = calcium) 9.4 mg/dL 8.6-10.4 chloride (test code = chloride) 101 mmol/L 96-108 chol/HDL ratio (test code = chol/HDL ratio) 6.1 <5.8 A cholesterol (test code = cholesterol) 291 mg/dL <200 H CO2 (test code = CO2) 22 mmol/L 22-29 creatinine (test code = creatinine) 0.91 mg/dL 0.49-1.02 diabetic (test code = diabetic) unknown E-GFR (test code = E-GFR) 74 mL/min See_Comment [Automated message] The system which generated this result transmitted reference range: >or=60. The reference range was not used to interpret this result as normal/abnormal. E-GFR, (test code = E-GFR, ) 86 mL/min See_Comment [Automated message] The system which generated this result transmitted reference range: >or=60. The reference range was not used to interpret this result as normal/abnormal. ethnicity: (test code = ethnicity:) not provided globulin (test code = globulin) 2.8 g/dL 1.7-3.7 glucose (test code = glucose) 76 mg/dL 70-99 HDL % of cholesterol (test code = HDL % of cholesterol) 16 % >14 HDL chol., direct (test code = HDL chol., direct) 48 mg/dL >50 L Hemoglobin A1c/Hemoglobin.total in Blood (test code = 4548-4) 5.6 % <5.7 LDL/HDL ratio (test code = LDL/HDL ratio) 4.25 <3.56 H WBC (test code = WBC) 8.57 x10(3)/uL 4.00-10.10 RBC (test code = RBC) 5.07 x10(6)/uL 3.58-5.19 HGB (test code = HGB) 11.7 g/dL 11.0-15.5 HCT (test code = HCT) 38.4 % 31.5-44.8 MCV (test code = MCV) 75.7 fL 78.0-98.0 L MCH (test code = MCH) 23.1 pg 25.2-32.6 L MCHC (test code = MCHC) 30.5 g/dL 31.0-34.7 L RDW (test code = RDW) 16.3 % 12.0-15.5 H platelet count (test code = platelet count) 404 x10(3)/uL 140-425 lymphs (test code = lymphs) 30.6 % 13.7-50.9 monos (test code = monos) 5.8 % 3.0-11.9 eos (test code = eos) 0.7 % 0.0-5.0 basos (test code = basos) 0.4 % 0.0-1.0 MPV (test code = MPV) 9.3 fL 8.6-12.1 non-HDL cholesterol (test code = non-HDL cholesterol) 243 mg/dL <130 H polys (test code = polys) 62.3 % 37.1-78.1 potassium (test code = potassium) 4.5 mmol/L 3.5-5.5 race: (test code = race:) white () smoker (test code = smoker) unknown sodium (test code = sodium) 140 mmol/L 135-147 total protein (test code = total protein) 7.3 g/dL 5.9-8.4 triglycerides (test code = triglycerides) 172 mg/dL <150 H VLDL, calculated (test code = VLDL, calculated) 34 mg/dL 7-32 H immature granulocytes (test code = immature granulocytes) 0.2 % 0.0-1.0 hscrp (test code = hscrp) 29.1 mg/L see below H lipoprot. (LDL) direct (test code = lipoprot. (LDL) direct) 204 mg/dL <100 H lipoprotein-A (test code = lipoprotein-A) 9.5 mg/dL <30.0 [facility]rolactin [Mass/volume] in Serum or Bppwji3350-68-00 00:00:00* Test Item Value Reference Range Interpretation Comme nts prolactin (test code = prolactin) 8.9 NG/mL 4.8-23.3 [facility] MedicalMagnesium [Mass/volume] in Serum or Yeyska3944-82-39 00:00:00* Test Item Value Reference Range Interpretation Comme nts magnesium (test code = magnesium) 2.1 mg/dL 1.6-2.6 [facility] Medical[facility]ath[facility]in.intact [Mass/volume] in Serum or Ffqxvg1612-83-42 00:00:00* Test Item Value Reference Range Interpretation Comme nts PTH (test code = PTH) 59.60 pg/mL 15.00-65.00 [facility] Medical[facility]olate+Cyanocobalamin [Interpretation] in Serum or Oyqjs6128-61-73 00:00:00* Test Item Value Reference Range Interpretation Comme nts folate (test code = folate) 11.50 NG/mL 2.00-20.00 vitamin B12 (test code = vit guerrier B12) 375.0 pg/mL 200.0-900.0 [facility], urueh4941-52-21 00:00:00* Test Item Value Reference Range Interpretation Comme nts TSH (test code = TSH) 0.484 uIU/mL 0.178-4.530 free T4 (test code = free T4) 0.98 NG/dL 0.80-1.73 total T4 (test code = total T4) 7.1 ug/dL 4.9-11.9 T-uptake (test code = T-uptake) 1.1 tbi 0.8-1.3 [facility] CenterCancer Ag 125 [Units/volume] in Serum or [id number] 00:00:00 * Test Item Value Reference Range Interpretation Comme nts CA-125 (test code = CA-125) 8.2 U/mL 6.4-38.1 [facility] CenterProgesterone Free [Mass/volume] in Serum or Itktxl4715-43-22 00:00:00* Test Item Value Reference Range Interpretation Comme nts progesterone (test code = progesterone) 0.18 NG/mL [facility] CenterIron and Iron binding capacity panel - Serum or Kahkjp3670-02-23 00:00:00* Test Item Value Reference Range Interpretation Comme nts iron (test code = iron) 20 ug/dL 37-145 L UIBC (test code = UIBC) 446 ug/dL 112-347 H TIBC (test code = TIBC) 466.0 [facility] CenterVbheapz46-Enmahidxnixuqq D3+25-Hydroxyvitamin D2 [Mass/volume] in Serum or Jiiafy0533-26-93 00:00:00* Test Item Value Reference Range Interpretation Comme nts vitamin D (test code = vitamin D) 23.7 NG/mL 32.0-100.0 L [facility] CenterUrinalysis macro (dipstick) panel - Perja0998-30-57 14:55:00* Test Item Value Reference Range Interpretation Comme nts Leukocytes (test code = Leukocytes) Trace Nitrite (test code = Nitrite) negative Urobilinogen (test code = Urobilinogen) 1+ Protein (test code = Protein) Trace pH (test code = pH) 6.0 Blood (test code = Blood) Negative Specific [place] (test code = Specific [place]) 1.015 Ketone (test code = Ketone) Trace Bilirubin (test code = Bilirubin) Small Glucose (test code = Glucose) 250 Appearance (test code = Appearance) Slightly Cloudy Color (test code = Color) [place] [facility] MedicalDrugs identified in Urine by Screen [id number] 00:00:00* Test Item Value Reference Range Interpretation Comme nts gabapentin ur CMP (test code = gabapentin ur CMP) >500 See_Comment A [Autom ated message] The system which generated this result transmitted reference range: >=5. The reference range was not used to interpret this result as normal/abnormal. hydrocodone ur CMP (test code = hydrocodone ur CMP) >45751 See_Comment A [Auto mated message] The system which generated this result transmitted reference range: >=100. The reference range was not used to interpret this result as normal/abnormal. biodetect (test code = biodetect) expected drug-drug interaction #1 (test code = drug-drug interaction #1) positive A drug-drug interaction #2 (test code = drug-drug interaction #2) positive A drug-drug interaction profile (test code = drug-drug interaction profile) >=5 See_Comment [Automated message] The system which generated this result transmitted reference range: >=5. The reference range was not used to interpret this result as normal/abnormal. amlodipine (norvasc) ddi (test code = amlodipine (norvasc) ddi) See_Comment [Automated message] The system which generated this result transmitted reference range: >=5. The reference range was not used to interpret this result as normal/abnormal. amlodipine metabolite ddi (test code = amlodipine metabolite ddi) See_Comment [Automated message] The system which generated this result transmitted reference range: >=5. The reference range was not used to interpret this result as normal/abnormal. 4-hydroxy omeprazole sulfide (test code = 4-hydroxy omeprazole sulfide) See_Comment [Automated message] The system which generated this result transmitted reference range: >=10. The reference range was not used to interpret this result as normal/abnormal. paroxetine metabolite II ddi (test code = paroxetine metabolite II ddi) See_Comment [Automated message] The system which generated this result transmitted reference range: >=50. The reference range was not used to interpret this result as normal/abnormal. paroxetine metab III ddi (test code = paroxetine metab III ddi) See_Comment [Automated message] The system which generated this result transmitted reference range: >=50. The reference range was not used to interpret this result as normal/abnormal. venlafaxine (effexor) ddi (test code = venlafaxine (effexor) ddi) See_Comment [Automated message] The system which generated this result transmitted reference range: >=5. The reference range was not used to interpret this result as normal/abnormal. O-desmethylvenlafaxine ddi (test code = O-desmethylvenlafaxine ddi) See_Comment [Automated message] The system which generated this result transmitted reference range: >=50. The reference range was not used to interpret this result as normal/abnormal. Buprenorphine [Presence] in Urine by Confirmatory method (test code = 92709-7) <1 See_Comment [Automated message] The system which generated this result transmitted reference range: >=1. The reference range was not used to interpret this result as normal/abnormal. Amphetamines [Presence] in Urine by Confirmatory method (test code = 38728-7) <100 See_Comment [Automated message] The system which generated this result transmitted reference range: >=100. The reference range was not used to interpret this result as normal/abnormal. Benzodiazepines [Presence] in Urine by Confirmatory method (test code = 68394-5) <50 See_Comment [Automated message] The system which generated this result transmitted reference range: >=50. The reference range was not used to interpret this result as normal/abnormal. gabapentinpregabalin ur ql cfm (test code = gabapentinpregabalin ur ql cfm) >=5 See_Comment [Automated message] The system which generated this result transmitted reference range: >=5. The reference range was not used to interpret this result as normal/abnormal. Gabapentin [Mass/volume] in Urine by Confirmatory method (test code = 41591-3) >500 See_Comment [Automated message] The system which generated this result transmitted reference range: >=5. The reference range was not used to interpret this result as normal/abnormal. Cocaine [Presence] in Urine by Confirmatory method (test code = 09163-2) <50 See_Comment [Automated message] The system which generated this result transmitted reference range: >=50. The reference range was not used to interpret this result as normal/abnormal. Opiates [Presence] in Urine by Confirmatory method (test code = 75359-7) >=100 See_Comment [Automated message] The system which generated this result transmitted reference range: >=100. The reference range was not used to interpret this result as normal/abnormal. Dihydrocodeine [Mass/volume] in Urine by Confirmatory method (test code = 84186-4) 2320 NG/mL See_Comment [Automated message] The system which generated this result transmitted reference range: >=100. The reference range was not used to interpret this result as normal/abnormal. HYDROcodone [Mass/volume] in Urine by Confirmatory method (test code = 31120-9) 3760 NG/mL See_Comment [Automated message] The system which generated this result transmitted reference range: >=100. The reference range was not used to interpret this result as normal/abnormal. Norhydrocodone [Mass/volume] in Urine by Confirmatory method (test code = 76892-5) >5000 See_Comment [Automated message] The system which generated this result transmitted reference range: >=100. The reference range was not used to interpret this result as normal/abnormal. 6-Monoacetylmorphine (6-JENNIFER) [Presence] in Urine by Confirmatory method (test code = 24647-7) <10 See_Comment [Automated message] The system which generated this result transmitted reference range: >=10. The reference range was not used to interpret this result as normal/abnormal. Methadone [Presence] in Urine by Confirmatory method (test code = 40916-2) <200 See_Comment [Automated message] The system which generated this result transmitted reference range: >=200. The reference range was not used to interpret this result as normal/abnormal. Meperidine [Presence] in Urine by Confirmatory method (test code = 33943-8) <100 See_Comment [Automated message] The system which generated this result transmitted reference range: >=100. The reference range was not used to interpret this result as normal/abnormal. fentaNYL+Norfentanyl [Presence] in Urine by Confirmatory method (test code = 08896-8) <5 See_Comment [Automated message] The system which generated this result transmitted reference range: >=5. The reference range was not used to interpret this result as normal/abnormal. Carisoprodol+Meprobamate [Presence] in Urine by Screen method (test code = 16367-5) <200 See_Comment [Automated message] The system which generated this result transmitted reference range: >=200. The reference range was not used to interpret this result as normal/abnormal. traMADol [Presence] in Urine by Confirmatory method (test code = 49227-1) <100 See_Comment [Automated message] The system which generated this result transmitted reference range: >=100. The reference range was not used to interpret this result as normal/abnormal. pH of Urine (test code = 2756-5) 7.49 4.5-9.0 Creatinine [Mass/volume] in Urine (test code = 2161-8) 161.1 mg/dL 20-370 Ethanol [Presence] in Urine by Screen method (test code = 21093-6) <10 See_Comment [Automated message] The system which generated this result transmitted reference range: >=10. The reference range was not used to interpret this result as normal/abnormal. Barbiturates [Presence] in Urine by Screen method (test code = 46642-4) <200 See_Comment [Automated message] The system which generated this result transmitted reference range: >=200. The reference range was not used to interpret this result as normal/abnormal. [facility] Date/Time Note Provider Source Alexy Rodriguez [facility]2024-08-27 11:28:23 Patient was advised to keep today's appointment but she is unable to make it. She will check with her daughter's schedule and call back to reschedule. Isabel Nelson [facility]NC[facility] HospitalSoyctj2678-42-57 14:59:28 Patient notified of results. They verbalized understanding of results/recommendations via teach back. No further questions or concerns at this time. Isabel [facility] 17[facility]59[facility]01 Pt given printed and verbal discharge instructions regarding multifocal pneumonia, chest pain at rest, SOB, COPD, and productive cough. Prescription sent to pharmacy Discussed ibuprofen and to take with food to avoid GI distress. Discussed antibiotic therapy and to take until all completed unless adverse reaction occurs - if occurs, discontinue medication and follow up with pcp/seek medical attention Pt verbalized understanding of instructions, pt awake alert oriented, resp reg unlabored, skin w/d, color appropriate for race, moves all ext well,pt encouraged to follow up with pcp. Advised to seek medical attention for new/prolonged/worsening of symptoms, Symptoms increased SOB, increased chest pain No adverse reaction to meds given in ER noted upon discharge PIV d'cd, dressing to site, catheter in tact. Awake, alert oriented, resp reg unlabored, skin w/d, pt leaving ambulatory , in no apparent distress, Blanca Padilla [facility]Wdmfqe7796-43-96 14:20:55 Patient to ED for shortness of breath, chest pain, and fever x [address] Vasquez's office and O2 sats were in the 70's and she was sent to the ED. Reports she has been sick for a month and uses oxygen at night but not usually during the day. Also been having problems with her CHF. [facility] HospitalLcmcia5121-32-31 09:45:00 Images from the original note were not included. Venipuncture collection performed by clean technique on the right hand. Total of 1 attempts were made. Slight pressure and a bandage/dressing were applied to the site(s). The patient experienced no complications. The following specimens were processed according to instructions and sent to [facility] laboratories per lab order on 10/31/2023 : LT BLUE SST 1 RED LAV PPT DK GREEN (LiHep) DK GREEN (SodH) JAIMES DK BLUE (K2) DK BLUE (S) ACD Blood Culture NIPT/NTD [place] 359764-07-29 13:25:47 Images from the original note were not included. Notified patient per Dr Vasquez: Vinay Vasquez MD P Cardiology Nurse BNP is slightly elevated. Chest x-ray showed mild congestion/COPD. Increase Lasix to 40 mg twice daily. Add spironolactone 25 mg daily. Please order BMP and BNP in 2 weeks. Note Patient verbal understanding. RX sent to [facility] in [place]. Lab orders placed. [place] 31443-07-29 10:28:[address] Du[address] [facility] Daria Quintero [place] 455834-07-29 10:27:39 Images from the original note were not included. Attempted to contact patient to discuss test results, no answer I left a voice message to call back. Vinay Vasquez MD P Cardiology Nurse BNP is slightly elevated. Chest x-ray showed mild congestion/COPD. Increase Lasix to 40 mg twice daily. Add spironolactone 25 mg daily. Please order BMP and BNP in 2 weeks. [place] 359764-07-29 10:23:34 Images from the original note were not included. Attempted to contact patient to discuss test results, no answer I left a voice message to call back. Vinay Vasquez MD P Cardiology Nurse BNP is slightly elevated. Chest x-ray showed mild congestion/COPD. Increase Lasix to 40 mg twice daily. Add spironolactone 25 mg daily. Please order BMP and BNP in 2 weeks. T [facility] HospitalThwoxu2028-87-80 10:09:21 Medical records received via fax from Dr Hansel Fitzpatrick and placed in Dr Vasquez's folder to be reviewed. Daria [facility]o [facility]3277[facility] 08:46:57 Carlos De La Cruz is a 53 year old female calling to discuss results of chest x -ray . [phone] (home) Elba QuinteroCleveland Clinic Av[facility] HospitalQqmvjv3364-52-94 14:45:00 Images from the original note were not included. Venipuncture collection performed by clean technique on the right hand. Total of 1 attempts were made. Slight pressure and a bandage/dressing were applied to the site(s). The patient experienced no complications. The following specimens were processed according to instructions and sent to [facility] laboratories per lab order on 10/10/2023: LT BLUE SST 1 RED LAV 1 PPT DK GREEN (LiHep) DK GREEN (SodH) JAIMES DK BLUE (K2) DK BLUE (S) ACD Blood Culture NIPT/NTD [facility]
[2024-04-27 14:47] LABS: Absolute Basophils 0.1 K/uL (0-0.5); Absolute Eosinophils 0.1 K/uL (0-0.5); Absolute Lymphocytes (CBC) 1.9 K/uL (0.7-4.9); Absolute Monocytes 0.7 K/uL (0.1-1.3); Absolute Neutrophil 6.5 K/uL (1.8-8.0); Basophils % 1.1 % (0-1.3); Eosinophils % 0.8 % (0-4.4); Hematocrit 49.2 % (36.0-45.0); Hemoglobin 16.4 g/dL (12.0-15.0); Lymphocytes % 20.7 % (15.3-44.8); MCH 28.5 pg (27.0-35.0); MCHC 33.3 g/dL (32.0-36.0); MCV 85.6 fL (80-100); MPV 7.3 fL (7.6-11.3); Monocytes % 7.7 % (3.3-12.3); Neutrophils % 69.7 % (41.7-73.7); Nucleated Red Blood Cells % 0.1 % (0-0); Platelets 293 thou/uL (152-406); RBC Red Blood Cell Count 5.75 M/uL (3.86-4.86); Red Cell Distribution Width 16.3 % (12.1-15.2)
[2024-04-27 14:55] LABS: PT Prothrombin Time 11.2 SECONDS (9.4-12.5); PTT, Activated Partial Thromb 32.1 SECONDS (24.3-36.9); Protime INR 1.07
--- NOTE | 2024-04-27 14:57 | RAD REPORT ---
EXAMINATION: CT HEAD WITHOUT CONTRAST CLINICAL INDICATION: Female, 54 years old.STROKE ALERT TECHNIQUE: Axial CT images from the skull base to the vertex without intravenous contrast. Coronal an d sagittal reformatted images were created from the data set. One or more of the following dose reduction techniques were used: Automated exposure control, adjustment of the mA and/or kV according to patient size, and/or iterative reconstruction. Unless otherwise specified, incidental findings do not require dedicated imaging follow-up. [id number]. COMPARISON: No prior exam. FINDINGS: INTRACRANIAL: No acute intracranial hemorrhage. No hydrocephalus. No mass effect or midline shift. No significant white matter disease. VASCULATURE: No visualized abnormalities in the arteries or dural venous sinuses. SCALP/SKULL: No significant soft tissue or osseous abnormalities. SINUSES: The visualized paranasal sinuses and mastoid air cells are predominantly clear. IMPRESSION: No acute intracranial abnormality. THIS REPORT CONTAINS FINDINGS THAT MAY BE CRITICAL TO PATIENT CARE. The findings were communicated to Dr. Weston on 04/27/2024 2:54 PM.
--- NOTE | 2024-04-27 14:59 | RAD REPORT ---
EXAMINATION: CTA NECK CLINICAL INDICATION: Female, 54 years old. stroke TECHNIQUE: Axial CT images were obtained from the aortic arch to the skull base after intravenous con trast utilizing angiographic protocol with 3D post-processing (maximum intensity projection images, volume rendered images and/or shaded surface rendered images). One or more of the following dose redu ction techniques were used: Automated exposure control, adjustment of the mA and/or kV according to patient size, and/or iterative reconstruction. Unless otherwise specified, incidental findings do not require dedicated imaging follow-up. [id number]. NASCET criteria used. Mild 0-49% stenosis Moderate 50-69% stenosis Severe 70-99% stenosis COMPARISON: No prior exam. FINDINGS: AORTA: The imaged aortic arch is normal. CCA: The common carotid arteries are patent and normal in caliber. ICA/ECA: Bilateral internal and external carotid arteries are patent. There is no significant interna l carotid artery stenosis. Where applicable, degree of stenosis is measured using NASCET-like criteria. Mild atherosclerotic plaque at the left proximal ICA. VERTEBRAL: The cervical vertebral arteries are patent and codominant. SOFT TISSUE: No significant neck soft tissue abnormalities. The visualized lung apices are clear. 3D images confirm these findings. IMPRESSION: No dissection or stenosis.
--- NOTE | 2024-04-27 15:01 | RAD REPORT ---
EXAMINATION: CTA HEAD CLINICAL INDICATION: Female, 54 years old. STROKE ALERT TECHNIQUE: Axial CT images were obtained through the head after intravenous contrast utilizing angiog raphic protocol with 3D post-processing (maximum intensity projection images, volume rendered images and/or shaded surface rendered images). One or more of the following dose reduction technique s were used: Automated exposure control, adjustment of the mA and/or kV according to patient size, and/or iterative reconstruction. Unless otherwise specified, incidental findings do not require dedic ated imaging follow-up. COMPARISON: No prior exam. FINDINGS: ICA: The petrous, cavernous, and supraclinoid segments of the bilateral internal carotid arteries are normal. The ophthalmic artery origins are visualized and normal. The posterior communicating arteries are patent. TERESSA: Anterior cerebral arteries are normal bilaterally. The anterior communicating artery is patent. MCA: Middle cerebral arteries are normal bilaterally. WELFARE ANALYST: Posterior cerebral arteries are normal bilaterally. origin of the left WELFARE ANALYST. Vertebrobasilar: The vertebral arteries are patent. The basilar artery is normal in appearance. 3D images confirm these findings. IMPRESSION: No occlusion, aneurysm, or hemodynamically significant stenosis identified.
[2024-04-27 15:06] LABS: ALT/SGPT 18 U/L (13-56); AST/SGOT 18 U/L (15-37); Albumin 2.9 g/dL (3.4-5.0); Albumin/Globulin Ratio 0.5 (1.1-1.8); Alkaline Phosphatase 106 U/L (45-117); Anion Gap 7.1 mEq/L (5.0-15.0); BUN Blood Urea Nitrogen 9 mg/dL (7-18); Bicarbonate 32 mEq/L (21-32); Bilirubin Total 0.3 mg/dL (0.2-1.0); Globulin 5.3 g/dL (2.3-3.5); Glomerular Filtration Rate 94 ml/min (=/>90); Glucose Level 109 mg/dL (74-106); Magnesium 2.1 mg/dL (1.6-2.4); Potassium 4.1 mEq/L (3.5-5.1); Protein, Total 8.2 g/dL (6.4-8.2); Sodium Level 137 mEq/L (136-145); Troponin High Sensitivity 9.7 pg/mL (<58.9)
[2024-04-27 15:11] LABS: Bilirubin Direct < 0.2 mg/dL (0-0.2); Bilirubin Indirect, Calculated 0.1 mg/dL (0.2-0.8)
--- NOTE | 2024-04-27 15:15 | RAD REPORT ---
EXAM: Chest Single View HISTORY: stroke aler COMPARISON: 11/04/2011 FINDINGS: LUNGS/PLEURA: Diffuse prominence of the pulmonary vasculature. No consolidative airspace disease. MEDIASTINUM: The mediastinal silhouette is within normal limits. CARDIAC: Mild cardiomegaly UPPER ABDOMEN: No significant abnormality. BONES: No acute abnormality. LINES/TUBES/OTHER: N/A IMPRESSION: Pulmonary vascular congestion.
[2024-04-27] MEDS ORDERED: ALBUTEROL 2.5 MG/3 ML NEB SOL ONE (15:18)
[2024-04-27] MEDS ORDERED: METHYLPREDNISOLONE 125 MG INJ ONE (15:19)
[2024-04-27] MEDS ORDERED: IPRATROPIUM BROM 0.5MG/2.5ML ONE (15:19)
--- NOTE | 2024-04-27 15:20 | ER ---
Nurse's Notes [facility] Name: Ibeth De La Cruz Age: 54 yrs Sex: Female : 1970 Arrival Date: 04/27/2024 Time: 14:27 Bed 13 Private MD: Diagnosis: Ischemic CVA;COPD/ Chronic obstructive pulmonary disease with (acute) exacerbation Presentation: 04/27 14:40 Chief complaint: EMS states: last seen normal at 0900 today , was found by family at iw noon and she was slurring her words, she has left sided arm weakness and a right sided facial droop. 14:50 Acuity: ELAINE 2 iw 14:50 Coronavirus screen: At this time, the client does not indicate any symptoms associated iw with coronavirus-19. Ebola Screen: No symptoms or risks identified at this time. Initial Sepsis Screen: Does the patient meet any 2 criteria? No. Patient's initial sepsis screen is negative. Does the patient have a suspected source of infection? No. Patient's initial sepsis screen is negative. Risk Assessment: Do you want to hurt yourself or someone else? Unable to obtain. Onset of symptoms was April 27, 2024. 14:50 Method Of Arrival: EMS: [facility] Triage Assessment: 14:57 The onset of the patients symptoms was April 27, 2024 at 09:00. General: Appears mb9 uncomfortable, Behavior is cooperative. Pain: Complains of pain in head Pain radiates to left frontal. EENT: No signs and/or symptoms were reported regarding the EENT system. 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 Cardiovascular: Heart tones S1 S2 present Patient's skin is warm and dry. Respiratory: Airway is patent Respiratory effort is even, unlabored, Respiratory pattern is regular, symmetrical, Breath sounds are clear bilaterally. GI: Abdomen is round. : No signs and/or symptoms were reported regarding the genitourinary system. Derm: Skin is pink, warm \\T\\ dry. Musculoskeletal: Range of motion: limited in left arm and leg. OCCUPATIONAL THERAPY MANAGER: 15:04 LMP N/A - , Not mb9 Stroke Activation: Symtpom onset >3 hours and < 6 hours Physician: ED Attending; Name: Balta Weston; Notified At: 14:30; Arrived At: 14:40 Physician: Mid-Level Provider; Name: ; Notified At: 14:30; Arrived At: Physician: [not used]; Name: ; Notified At: ; Arrived At: Physician: [not used]; Name: ; Notified At: ; Arrived At: Physician: [not used]; Name: ; Notified At: ; Arrived At: Historical: - Allergies: 15:03 Labetalol; mb9 - Home Meds: 14:42 venlafaxine 150 mg oral Capsule, ER 24 hr every day at bedtime [Active]; amlodipine 10 iw mg tablet daily [Active]; clonidine HCl 0.1 mg Oral tablet daily [Active]; losartan 50 mg oral tablet daily [Active]; tizanidine 4 mg oral capsule 2 caps every day at bedtime [Active]; buprenorphine HCl 600 mcg buccal Film every 12 hours [Active]; omeprazole 40 mg Oral capsule,delayed release (e.c.) daily [Active]; gabapentin 800 mg oral tablet 3 times per day [Active]; furosemide 40 mg Oral tablet daily [Active]; mirtazapine 30 mg Oral tablet every day at bedtime [Active]; spironolactone 25 mg Oral tablet daily [Active]; roflumilast 500 mcg oral tablet daily [Active]; prednisone 10 mg Oral tablet 2 times per day [Active]; Trelegy Ellipta 100-62.5-25 mcg inhalation Blister, With Inhalation Device every 24 hours [Active]; - PMHx: 15:03 Chronic obstructive lung disease; Hypertensive disorder; Cerebrovascular accident; mb9 Congestive heart failure; - PSHx: 15:03 Unable to Obtain; mb9 - Immunization history:: Adult Immunizations up to date. - Infectious Disease History:: Denies. - Social history:: Smoking status: Patient reports the use of cigarette tobacco products, smokes one pack cigarettes per day. Screenin:00 VAN Screening: Arm Drift: Severe drift. Visual Disturbance: No visual disturbance es3 noted. Aphasia: Expressive aphasia noted. Provider notified of +VAN scoring. Neglect: No neglect noted. 15:00 [place] Swallow Protocol Exclusion Criteria: Unable to remain alert for testing: MD [email or web address] Notified: Balta Weston DO. 15:02 [facility] ED Fall Risk Assessment (Adult) History of falling in the last 3 months, mb9 including since admission No falls in past 3 months (0 pts) Confusion or Disorientation Yes (5 pts) Intoxicated or Sedated No (0 pts) Impaired Gait Yes (1 pt) Mobility Assist Device Used No (0 pt) Altered Elimination Yes (1 pt) Score/Fall Risk Level 3 or more points = High Risk Oriented to surroundings, Maintained a safe environment, Educated pt \\T\\ family on fall prevention, incl call for assistance when getting out of bed. Abuse screen: Denies threats or abuse. Nutritional screening: No deficits noted. Tuberculosis screening: No symptoms or risk factors identified. Assessment: 14:30 Reassessment: Code stroke called. me1 15:04 VAN Scoring:. [place] Swallow Protocol Oral Mechanism Examination. [place] Swallow Protocol mb9 Exclusion Criteria: Unable to remain alert for testing: Yes Brief Cognitive Screen What is your name? Abnormal Where are you right now? Abnormal What year is it? Abnormal Result: FAIL. 15:34 Reassessment: No changes from previously documented assessment. Patient and/or family mb9 updated on plan of care and expected duration. Pain level reassessed. 15:35 Reassessment: pt declined Aspirin IA. ERP notified. mb9 16:19 Reassessment: No changes from previously documented assessment. Patient and/or family mb9 updated on plan of care and expected duration. Pain level reassessed. 17:35 Reassessment: No changes from previously documented assessment. Patient and/or family mb9 updated on plan of care and expected duration. Pain level reassessed. 18:00 Reassessment: Pt confused, lethargic, and AOx1. Pt awake to sternal rub. ace Grant SOFTWARE COMPUTER SPECIALIST, notified. VO for BiPAP and 0.4 mg of Narcan. 18:25 Reassessment: RT at bedside placing BiPAP. mb9 18:47 Reassessment: pt sitting in bed. AOx2. Respirations even and unlabored. mb9 19:05 Reassessment: Pt attempting to climb out of bed, taking BiPAP off, and stating "I need mb9 to go home and need a cigarette." Verbal reassurance given. Pt refusing to put BiPAP on but agrees to wear nasal cannula. Charge nurse notified and at bedside. 21:18 Reassessment: Report given to Jenise Hebert RN. me1 Vital Signs: 14:55 BP 143 / 80; Pulse 84; Resp 16; Temp 98.2; Pulse Ox 92% on 5 lpm NC; Weight 132.45 kg; mb9 Height 5 ft. 7 in. ; 15:30 BP 151 / 72; Pulse 77; Resp 18; Pulse Ox 95% on 5 lpm NC; mb9 16:00 BP 142 / 95; Pulse 81; Resp 18; Pulse Ox 95% on 5 lpm NC; mb9 16:30 BP 125 / 69; Pulse 81; Resp 18; Pulse Ox 93% on 5 lpm NC; mb9 17:00 BP 114 / 78; Pulse 79; Resp 18; Pulse Ox 92% on 5 lpm NC; mb9 17:30 BP 134 / 88; Pulse 80; Resp 18; Pulse Ox 93% on 5 lpm NC; mb9 18:00 BP 142 / 78; Pulse 83; Resp 18; Pulse Ox 97% on R/A; mb9 18:30 BP 148 / 72; Pulse 76; Resp 18; Pulse Ox 96% on 40 lpm BiPAP; mb9 14:55 Body Mass Index 45.73 (132.45 kg, 170.18 cm) mb9 NIH Stroke Scale Scores: 15:00 NIHSS Score: 15 es3 15:07 NIHSS Score: 15 ms3 ED Course: 14:30 Patient arrived in ED. bd 14:30 Initial lab(s) drawn, by me, sent to lab. Maintain EMS IV. Dressing intact. Good blood mb9 return noted. Site clean \\T\\ dry. Gauge \\T\\ site: 20 g left FA. Flushed with 10 mL NS. 14:33 Balta Weston DO is Attending Physician. ms3 14:48 CT Head Angio In Process Unspecified. EDMS 14:48 CT Neck Angio In Process Unspecified. EDMS 14:48 CT Stroke Brain w/o Contrast In Process Unspecified. EDMS 14:50 Triage completed. iw 14:50 EKG done, by ED staff, reviewed by Balta Weston DO. mb9 14:52 Arm band placed on. iw 14:55 Olivares, Mounika, RN is Primary Nurse. mb9 15:03 Placed in gown. Bed in low position. Call light in reach. Side rails up X 1. Provided mb9 Education on: press call light if needing anything. Client placed on continuous cardiac and pulse oximetry monitoring. NIBP monitoring applied. case monitor on. 15:11 Stroke CXR 1 View In Process Unspecified. EDMS 15:14 No provider procedures requiring assistance completed. mb9 15:18 Jessica Seals is Hospitalizing Provider. ms3 15:35 Patient admitted, IV remains in place. mb9 19:12 Report given to STEPHANIE Kearns. mb9 Administered Medications: 15:24 Drug: Albuterol Inhalation 2.5 mg Inhalation every 20 minutes x3 Route: Inhalation; mb9 15:24 Drug: Ipratropium Inhalation Aerosol 0.5 mg Inhalation once Route: Inhalation; mb9 15:24 Drug: MethylPrednisoLONE IVP 125 mg IVP once Route: IVP; Site: left forearm; mb9 17:24 Follow up: Response: No adverse reaction mb9 15:34 Not Given (Patient Refused): aspirinsuppository 300 mg IA once mb9 18:00 Drug: Naloxone IVP 0.4 mg IVP once Route: IVP; Site: left forearm; mb9 19:12 Follow up: Response: No adverse reaction; RASS: Drowsy (-1) me1 Medication: 15:03 VIS not applicable for this client. mb9 Point of Care Testing: Blood Glucose: 14:30 Blood Glucose: 114 mg/dL; mb9 Ranges: Outcome: 15:20 Decision to Hospitalize by Provider. ms3 21:19 Admitted to ICU accompanied by nurse, via stretcher, room -3, with oxygen, on monitor, me1 with chart, Report called to Jenise Hebert RN 21:19 Condition: stable 21:19 Instructed on the need for admit, 21:49 Patient left the ED. me1 NIH Stroke Scale - NIH Stroke Score Date: 04/27/2024 Time: 15:00 Total Score = 15 10. Dysarthria (speech clarity - read or repeat words) - 2(Severe) 11. Extinction and Inattention (visual/tactile/auditory/spatial/personal) - 0(No abnormality) 1a. Level of Consciousness (LOC) - 1(Not Alert) 1b. Level of Consciousness (LOC) (Month \\T\\ Age) - 1(One) 1c. LOC Commands (Open \\T\\ Closes Eyes/[place] Operator) - 0(Both) 2. Best Gaze (Lateral Gaze Paresis) - 0(Normal) 3. Visual Field Loss - 0(No visual loss) 4. Facial Palsy - 2(Partial paralysis) 5a. Left Arm: Motor (10-second hold) - 2(Drift, some effort against gravity) 5b. Right Arm: Motor (10-second hold) - 0(No drift) 6a. Left Leg: Motor (5-second hold - always test supine) - 2(Drift, some effort against gravity) 6b. Right Leg: Motor (5-second hold - always test supine) - 0(No drift) 7. Limb Ataxia (finger/nose \\T\\ heel/noriega - test with eyes open) - 2(Present in two limbs) 8. Sensory Loss (pinprick arms/legs/face) - 1(Mild to moderate loss) 9. Best Language: Aphasia (description/naming/reading) - 2(Severe aphasia) Initials: es3 NIH Stroke Scale - NIH Stroke Score Date: 04/27/2024 Time: 15:07 Total Score = 15 10. Dysarthria (speech clarity - read or repeat words) - 2(Severe) 11. Extinction and Inattention (visual/tactile/auditory/spatial/personal) - 0(No abnormality) 1a. Level of Consciousness (LOC) - 1(Not Alert) 1b. Level of Consciousness (LOC) (Month \\T\\ Age) - 1(One) 1c. LOC Commands (Open \\T\\ Closes Eyes/[place] Operator) - 0(Both) 2. Best Gaze (Lateral Gaze Paresis) - 0(Normal) 3. Visual Field Loss - 0(No visual loss) 4. Facial Palsy - 2(Partial paralysis) 5a. Left Arm: Motor (10-second hold) - 2(Drift, some effort against gravity) 5b. Right Arm: Motor (10-second hold) - 0(No drift) 6a. Left Leg: Motor (5-second hold - always test supine) - 2(Drift, some effort against gravity) 6b. Right Leg: Motor (5-second hold - always test supine) - 0(No drift) 7. Limb Ataxia (finger/nose \\T\\ heel/noriega - test with eyes open) - 2(Present in two limbs) 8. Sensory Loss (pinprick arms/legs/face) - 1(Mild to moderate loss) 9. Best Language: Aphasia (description/naming/reading) - 2(Severe aphasia) Initials: ms3 Signatures: Dispatcher [employer] EDEly Moon Irene, RN RN iw Balta Weston, DO ms3 Stephanie Olivares RN RN mb9 Urmila Aguilar RN RN me1 Sonal Sawant RN RN es3 Corrections: (The following items were deleted from the chart) 15:35 15:35 Reassessment: pt declined Aspirin IA mb9 mb9 17:23 16:19 BP 142 / 95; Pulse 81bpm; Resp 18bpm; Pulse Ox 95% 5 lpm Nasal Cannula; mb9 mb9
--- NOTE | 2024-04-27 15:21 | EDPHYS ---
Physician Documentation [facility] Name: Ibeth De La Cruz Age: 54 yrs Sex: Female : 1970 Arrival Date: 04/27/2024 Time: 14:27 Bed 13 Private MD: ED Physician Balta Weston HPI: 04/27 15:04 This 54 yrs old Female presents to ER via EMS with complaints of S/S of Possible Stroke.ms3 15:07 54-year-old female presents to the emergency department via [facility] for ms3 possible stroke. Patient last known well at 9 AM. Patient's daughter states she found her mother in bed at noon not speaking with the right facial droop and left-sided weakness. Patient states she has a headache and shortness of breath. She denies nausea or vomiting.. 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 N/A - , Not mb9 Historical: - Allergies: 15:03 Labetalol; mb9 - Home Meds: 14:42 venlafaxine 150 mg oral Capsule, ER 24 hr every day at bedtime [Active]; amlodipine 10 iw mg tablet daily [Active]; clonidine HCl 0.1 mg Oral tablet daily [Active]; losartan 50 mg oral tablet daily [Active]; tizanidine 4 mg oral capsule 2 caps every day at bedtime [Active]; buprenorphine HCl 600 mcg buccal Film every 12 hours [Active]; omeprazole 40 mg Oral capsule,delayed release (e.c.) daily [Active]; gabapentin 800 mg oral tablet 3 times per day [Active]; furosemide 40 mg Oral tablet daily [Active]; mirtazapine 30 mg Oral tablet every day at bedtime [Active]; spironolactone 25 mg Oral tablet daily [Active]; roflumilast 500 mcg oral tablet daily [Active]; prednisone 10 mg Oral tablet 2 times per day [Active]; Trelegy Ellipta 100-62.5-25 mcg inhalation Blister, With Inhalation Device every 24 hours [Active]; - PMHx: 15:03 Chronic obstructive lung disease; Hypertensive disorder; Cerebrovascular accident; mb9 Congestive heart failure; - PSHx: 15:03 Unable to Obtain; mb9 - Immunization history:: Adult Immunizations up to date. - Infectious Disease History:: Denies. - Social history:: Smoking status: Patient reports the use of cigarette tobacco products, smokes one pack cigarettes per day. ROS: 15:07 Constitutional: Negative for fever, and chills. Cardiovascular: Negative for chest ms3 pain, and palpitations. 15:07 Abdomen/GI: Negative for abdominal pain, nausea, vomiting, diarrhea, and constipation, MS/Extremity: Negative for injury and deformity, Skin: Negative for injury, rash, and discoloration, 15:07 Respiratory: Positive for shortness of breath, Exam: 15:07 Radiologist reports: negative acute ms3 15:07 Head/Face: Normocephalic, atraumatic. Cardiovascular: Regular rate and rhythm with a ms3 normal S1 and S2. No gallops, murmurs, or rubs. Normal PMI, no JVD. No pulse deficits. Abdomen/GI: Soft, non-tender, with normal bowel sounds. No distension or tympany. No guarding or rebound. No evidence of tenderness throughout. Skin: Warm, dry with normal turgor. Normal color with no rashes, no lesions, and no evidence of cellulitis. MS/ Extremity: Pulses equal, no cyanosis. Neurovascular intact. Full, normal range of motion. 15:07 Constitutional: The patient appears alert, obese, obviously ill, 15:07 Respiratory: mild respiratory distress is noted, Respirations: normal, Breath sounds: wheezing: expiratory is heard diffusely, 15:21 ECG was reviewed by the Attending Physician. ms3 Vital Signs: 14:55 BP 143 / 80; Pulse 84; Resp 16; Temp 98.2; Pulse Ox 92% on 5 lpm NC; Weight 132.45 kg; mb9 Height 5 ft. 7 in. ; 15:30 BP 151 / 72; Pulse 77; Resp 18; Pulse Ox 95% on 5 lpm NC; mb9 16:00 BP 142 / 95; Pulse 81; Resp 18; Pulse Ox 95% on 5 lpm NC; mb9 16:30 BP 125 / 69; Pulse 81; Resp 18; Pulse Ox 93% on 5 lpm NC; mb9 17:00 BP 114 / 78; Pulse 79; Resp 18; Pulse Ox 92% on 5 lpm NC; mb9 17:30 BP 134 / 88; Pulse 80; Resp 18; Pulse Ox 93% on 5 lpm NC; mb9 18:00 BP 142 / 78; Pulse 83; Resp 18; Pulse Ox 97% on R/A; mb9 18:30 BP 148 / 72; Pulse 76; Resp 18; Pulse Ox 96% on 40 lpm BiPAP; mb9 14:55 Body Mass Index 45.73 (132.45 kg, 170.18 cm) mb9 NIH Stroke Scale Scores: 15:00 NIHSS Score: 15 es3 15:07 NIHSS Score: 15 ms3 MDM: 14:51 Medical Screening Exam initiated ms3 15:03 Differential diagnosis: CVA, TIA, metabolic disorder, drug effects. TNKase ms3 (Tenecteplase) Screening: Contraindications: Patient reports onset of signs and symptoms of stroke greater than 6 hours ago: Yes. 15:16 Management of patient was discussed with the following: Outpatient Coding Specialist: Discussed case with ms3 Dr Mcgrath. Patient is not TNKase candidate. ASA, Plavix, Statin, Folic Acid recommended. Discussed with him patient has not passed swallow eval.. 15:20 Data reviewed: vital signs, nurses notes, lab test result(s), EKG, radiologic studies, ms3 and as a result, I will admit patient. Consideration of Admission/Observation Patient was admitted/placed on observation. I considered the following discharge prescriptions or medication management in the emergency department Medications were administered in the Emergency Department. See MAR. 15:21 Independent interpretation of the following test(s) in the Emergency Department EKG: ms3 See my EKG interpretation above. 04/27 14:33 Order name: Basic Metabolic Panel; Complete Time: 15:12 ms3 04/27 14:33 Order name: CBC with Diff; Complete Time: 15:12 ms3 04/27 14:33 Order name: Hepatic Function; Complete Time: 15:12 ms3 04/27 14:33 Order name: High Sensitivity Troponin; Complete Time: 15:12 ms3 04/27 14:33 Order name: Magnesium; Complete Time: 15:12 ms3 04/27 14:33 Order name: Protime (+inr); Complete Time: 15:12 ms3 04/27 14:33 Order name: Ptt, Activated; Complete Time: 15:12 ms3 04/27 14:42 Order name: Glucose, Ancillary Testing; Complete Time: 15:12 EDMS 04/27 15:55 Order name: CREATININE WHOLE BLOOD; Complete Time: 16:20 EDMS 04/27 17:30 Order name: Urine Drug Screen [facility] 04/27 17:39 Order name: CBC with Automated Diff [facility] 04/27 17:39 Order name: CBC with Automated Diff [facility] 04/27 17:39 Order name: Comprehensive Metabolic Panel [facility] 04/27 17:39 Order name: Comprehensive Metabolic Panel [facility] 04/27 17:41 Order name: ABG Arterial Blood Gas [facility] 04/27 14:33 Order name: CT Head Angio; Complete Time: 15:12 ms3 04/27 14:33 Order name: CT Neck Angio; Complete Time: 15:12 ms3 04/27 14:34 Order name: CT Stroke Brain w/o Contrast; Complete Time: 15:12 ms3 04/27 14:34 Order name: Stroke CXR 1 View; Complete Time: 15:45 ms3 04/27 16:34 Order name: Brain Wo Cont [facility] 04/27 17:39 Order name: Speech Therapy Consult [facility] 04/27 17:39 Order name: CONS Physician Consult [facility] 04/27 14:34 Order name: Accucheck; Complete Time: 15:05 04/27 14:34 Order name: Cardiac monitoring; Complete Time: 15:05 04/27 14:34 Order name: EKG - Nurse/Tech; Complete Time: 15:05 04/27 14:34 Order name: IV Saline Lock; Complete Time: 15:05 04/27 14:34 Order name: Labs collected and sent; Complete Time: 15:05 04/27 14:34 Order name: NPO; Complete Time: 15:05 04/27 14:34 Order name: O2 Per Protocol; Complete Time: 15:05 04/27 14:34 Order name: O2 Sat Monitoring; Complete Time: 15:05 04/27 14:34 Order name: Stroke Swallow Screen; Complete Time: 15:05 ms3 EC:21 Rate is 80 beats/min. Rhythm is regular. QRS Morrison is Normal. IA interval is normal. QRS ms3 interval is normal. Clinical impression: Normal ECG. Interpreted by me. Reviewed by me. Administered Medications: 15:24 Drug: Albuterol Inhalation 2.5 mg Inhalation every 20 minutes x3 Route: Inhalation; mb9 15:24 Drug: Ipratropium Inhalation Aerosol 0.5 mg Inhalation once Route: Inhalation; mb9 15:24 Drug: MethylPrednisoLONE IVP 125 mg IVP once Route: IVP; Site: left forearm; mb9 17:24 Follow up: Response: No adverse reaction mb9 15:34 Not Given (Patient Refused): aspirinsuppository 300 mg IA once mb9 18:00 Drug: Naloxone IVP 0.4 mg IVP once Route: IVP; Site: left forearm; mb9 19:12 Follow up: Response: No adverse reaction; RASS: Drowsy (-1) me1 Point of Care Testing: Blood Glucose: 14:30 Blood Glucose: 114 mg/dL; mb9 Ranges: Critical Glucose Levels:Adult <50 mg/dl or >400 mg/dl <40 mg/dl or >180 mg/dl Disposition Summary: 04/27/24 15:20 Hospitalization Ordered Notes: Hospitalization Status: Inpatient Admission ms3 Provider: Jessica Seals ms3 Condition: Stable ms3 Problem: new ms3 Symptoms: are unchanged ms3 Bed/Room Type: Standard ms3 Location: Intensive Care Unit(04/27/24 20:49) cg Room Assignment: 3-(04/27/24 20:49) cg Diagnosis - Ischemic CVA ms3 - COPD/ Chronic obstructive pulmonary disease with (acute) exacerbation ms3 Forms: - Medication Reconciliation Form ms3 - SBAR form ms3 - Leadership Thank You Letter ms3 Critical care time excluding procedures: 15:20 Critical care time: Bedside Care: 30 minutes, Consultation: 5 minutes, Family ms3 Intervention: 5 minutes. Total time: 40 minutes NIH Stroke Scale - NIH Stroke Score Date: 04/27/2024 Time: 15:00 Total Score = 15 10. Dysarthria (speech clarity - read or repeat words) - 2(Severe) 11. Extinction and Inattention (visual/tactile/auditory/spatial/personal) - 0(No abnormality) 1a. Level of Consciousness (LOC) - 1(Not Alert) 1b. Level of Consciousness (LOC) (Month \T\ Age) - 1(One) 1c. LOC Commands (Open \T\ Closes Eyes/Truck Technician) - 0(Both) 2. Best Gaze (Lateral Gaze Paresis) - 0(Normal) 3. Visual Field Loss - 0(No visual loss) 4. Facial Palsy - 2(Partial paralysis) 5a. Left Arm: Motor (10-second hold) - 2(Drift, some effort against gravity) 5b. Right Arm: Motor (10-second hold) - 0(No drift) 6a. Left Leg: Motor (5-second hold - always test supine) - 2(Drift, some effort against gravity) 6b. Right Leg: Motor (5-second hold - always test supine) - 0(No drift) 7. Limb Ataxia (finger/nose \T\ heel/noriega - test with eyes open) - 2(Present in two limbs) 8. Sensory Loss (pinprick arms/legs/face) - 1(Mild to moderate loss) 9. Best Language: Aphasia (description/naming/reading) - 2(Severe aphasia) Initials: es3 NIH Stroke Scale - NIH Stroke Score Date: 04/27/2024 Time: 15:07 Total Score = 15 10. Dysarthria (speech clarity - read or repeat words) - 2(Severe) 11. Extinction and Inattention (visual/tactile/auditory/spatial/personal) - 0(No abnormality) 1a. Level of Consciousness (LOC) - 1(Not Alert) 1b. Level of Consciousness (LOC) (Month \T\ Age) - 1(One) 1c. LOC Commands (Open \T\ Closes Eyes/Truck Technician) - 0(Both) 2. Best Gaze (Lateral Gaze Paresis) - 0(Normal) 3. Visual Field Loss - 0(No visual loss) 4. Facial Palsy - 2(Partial paralysis) 5a. Left Arm: Motor (10-second hold) - 2(Drift, some effort against gravity) 5b. Right Arm: Motor (10-second hold) - 0(No drift) 6a. Left Leg: Motor (5-second hold - always test supine) - 2(Drift, some effort against gravity) 6b. Right Leg: Motor (5-second hold - always test supine) - 0(No drift) 7. Limb Ataxia (finger/nose \T\ heel/noriega - test with eyes open) - 2(Present in two limbs) 8. Sensory Loss (pinprick arms/legs/face) - 1(Mild to moderate loss) 9. Best Language: Aphasia (description/naming/reading) - 2(Severe aphasia) Initials: ms3 Signatures: Dispatcher [employer] EDEly Moon Irene, RN RN iw Deloris Quintero, RN RN cg Trista, Balta, DO DO ms3 Elise, Mounika, RN RN mb9 Jeff, Urmila RN me1 Corrections: (The following items were deleted from the chart) 14:34 14:34 BASIC METABOLIC PANEL+C.LAB.BRZ ordered. EDMS EDMS 14:34 14:34 CBC+H.LAB.BRZ ordered. EDMS EDMS 14:34 14:34 HEPATIC FUNCTION+C.LAB.BRZ ordered. EDMS EDMS 14:34 14:34 Troponin High Sensitivity+C.LAB.BRZ ordered. EDMS EDMS 14:34 14:34 MAGNESIUM+C.LAB.BRZ ordered. EDMS EDMS 14:34 14:34 PROTIME (+INR)+COAG.LAB.BRZ ordered. EDMS EDMS 14:34 14:34 PTT, ACTIVATED+COAG.LAB.BRZ ordered. EDMS EDMS 14:34 14:34 Head Angio+CT.RAD.BRZ ordered. EDMS EDMS 14:34 14:34 Neck Angio+CT.RAD.BRZ ordered. EDMS EDMS 14:34 14:34 CT-STROKE BRAIN W/O CONTRAST+CT.RAD.BRZ ordered. EDMS EDMS 14:34 14:34 Chest Single View+RAD.RAD.BRZ ordered. EDMS EDMS 16:34 15:16 MR STROKE PROTOCOL+MRI.RAD.BRZ ordered. EDMS EDMS 17:43 15:20 ms3 bd 18:19 17:43 206 bd bd 18:33 15:20 Telemetry/MedSurg (Inpatient) ms3 iw 18:33 18:19 bd iw 20:49 18:33 [facility] ER HOLD iw cg 20:49 18:33 ERHOLD- iw cg
[2024-04-27] MEDS ORDERED: ONDANSETRON 4 MG/2 ML VIAL IV PRN (17:29)
[2024-04-27] MEDS ORDERED: HYDRALAZINE HCL 20 MG/ML VIAL IV PRN (17:29)
[2024-04-27] MEDS ORDERED: ACETAMINOPHEN 325 MG TABLET PO PRN (17:29)
[2024-04-27] MEDS ORDERED: ZOLPIDEM TARTRATE 5 MG TABLET PO PRN (17:29)
[2024-04-27] MEDS ORDERED: ALBUTEROL 2.5 MG/3 ML NEB SOL NEB PRN (17:29)
--- NOTE | 2024-04-27 17:48 | P.HP ---
Certification for Inpatient Patient admitted to: Inpatient With expected LOS: >2 Midnights Practitioner: I am a practitioner with admitting privileges, knowledge of patient current condition, hospital course, and medical plan of care. Services: Services provided to patient in accordance with Admission requirements found in Title 42 Section 412.3 of the Code of Federal Regulations Patient History Date of Service: 04/28/24 Reason for admission: stroke like symptoms, COPD exacerbation History of Present Illness: Ms. De La Cruz is a morbidly obese 54-year-old female with a past medical history of hypertension, hyperlipidemia, COPD, CHF, anxiety/depression, chronic pain, and insomnia. She was found obtunded by family members and EMS was called. She was found to have stroke like symptoms with right facial drooping with poor responsiveness with jerky, dysmetric movements bilaterally with admittedly left greater than right symptoms. 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 Imaging and lab results are relatively unremarkable. Will admit her for further evaluation and treatment with consultation to neurology. Allergies No Known Allergies Allergy (Unverified 05/07/11 12:35) Home medications list reviewed: Yes Home Medications: Amlodipine [Norvasc] 10 mg PO DAILY 04/27/24 Buprenorphine HCl [Belbuca] 600 mcg BC Q12H 04/27/24 Fluticasone/Umeclidin/Vilanter [Trelegy Ellipta 100-62.5-25] 1 inh IH DAILY 04/27/24 Furosemide 40 mg PO DAILY 04/27/24 Gabapentin [Neurontin] 800 mg PO TID 04/27/24 Losartan Potassium 50 mg PO DAILY 04/27/24 Mirtazapine 30 mg PO BEDTIME 04/27/24 Omeprazole [Prilosec] 40 mg PO DAILY 04/27/24 Prednisone [Sterapred Ds] 10 mg PO BID 04/27/24 Roflumilast 500 mcg PO DAILY 04/27/24 Spironolactone 25 mg PO DAILY 04/27/24 Tizanidine [Zanaflex*] 2 cap PO BEDTIME 04/27/24 Venlafaxine HCl [Effexor XR] 150 mg PO 30 MIN BEFORE HS 04/27/24 cloNIDine HCL [Clonidine HCl] 0.1 mg PO DAILY 04/27/24 - Past Medical/Surgical History Has patient received pneumonia vaccine in the past: No Diabetic: Yes -: Opioid pain management -: COPD -: CVA -: HTN -: CHF Psychosocial/ Personal History: 2 children at bedside, sees litzy Hanson to get good social hx - Social History Smoking Status: Current every day smoker Caffeine use: Yes Place of Residence: Home Review of Systems 10-point ROS is otherwise unremarkable General: Weakness, Malaise Eyes: Unremarkable ENT: Unremarkable Respiratory: Unremarkable Cardiovascular: Unremarkable Gastrointestinal: Unremarkable Genitourinary: Unremarkable Musculoskeletal: As per HPI Integumentary: Unremarkable Neurological: As per HPI Lymphatics: Unremarkable Physical Examination - Physical Exam General: Oriented x3, Disheveled, Mild distress, Obese, Other (poorly responsive, dysmetric movements, poorly cooperative) HEENT: Atraumatic, Normocephalic Neck: Supple Respiratory: Expiratory wheezes Cardiovascular: Regular rate/rhythm Capillary refill: <2 Seconds Gastrointestinal: Normal bowel sounds Musculoskeletal: No clubbing Integumentary: No rashes Neurological: Normal tone, Other (difficults to acertain if suppressed from medication, hypercapnia, or true pathology, she does have right facial droop, nonfocal bilateral upper and lower extremity incoordination and jerking movements, left mildly more affected than right), Abnormal speech, Abnormal strength, Abnormal tone, Abnormal affect Lymphatics: No axilla or inguinal lymphadenopathy External genitalia: Deferred Rectal: Deferred - Studies Laboratory Data (last 24 hrs) 04/27/24 04/27/24 04/27/24 14:38 14:38 14:38 WBC 9.40 Hgb 16.4 H Hct 49.2 H Plt Count 293 PT 11.2 INR 1.07 APTT 32.1 Sodium 137 Potassium 4.1 BUN 9 Creatinine 0.76 Glucose 109 H Magnesium 2.1 Total Bilirubin 0.3 AST 18 ALT 18 Alkaline Phosphatase 106 Assessment and Plan - Plan Neurologic impairment/stroke like symptoms hypercarbia vs opiod bilingual operator depression vs CVA, pt adamantly refused (in complete sentence) MRI when headed to department Neuro checks q4h NIHSS q shift speech therapy swallow study PT/OT consult Dr. Mcgrath consult ASA Folic acid HTN monitor and trend, hydralazine prn Morbid obesity with likely HIRA upon awaiting inpatient bed pt decompensated, ABG showed CO2 retention, Narcan 0.4mg IV x1 pushed, and BiPap placed transfer pt to ICU nebs ABG Uncontrolled dyslipidemia High dose Statin Opioid/muscle relaxant/sleep aide per pain management Withdrawal precautions No muscle relaxants wean chronic opioids Plan to discharge in: Greater than 2 days - Advance Directives Does patient have a Living Will: No Does patient have a Durable POA for Healthcare: No - Code Status/Comfort Care Code Status Assessed: Yes (Full)
[2024-04-27] MEDS: HEPARIN 5000 UNIT/ML 1 ML VIAL SQ SCH (18:00)
[2024-04-27] MEDS: D5.45NS W/KCL 20MEQ 1,000 ML IV SCH (18:00)
[2024-04-27] MEDS ORDERED: NALOXONE 0.4 MG/ML VIAL ONE (18:16)
[2024-04-27 18:40] LABS: Arterial Blood Carboxyhemoglob 7.5 % (0-1.5); Blood Gas THB 16.2 g/dl (12-18); Blood O2 Saturation 94.9 % (92-98.5)
[2024-04-27] MEDS ORDERED: LORazepam 2 MG/ML VIAL ONE (19:07)
[2024-04-27] MEDS: LORazepam 2 MG/ML VIAL IV ONE (19:21)
[2024-04-27] MEDS ORDERED: HEPARIN 5000 UNIT/ML 1 ML VIAL ONE (19:36)
[2024-04-27] MEDS ORDERED: D5.45NS W/KCL 20MEQ 1,000 ML IV ONE (19:37)
[2024-04-27] MEDS: ATORVASTATIN 80 MG TAB PO SCH (19:43)
[2024-04-28 00:01] LABS: Barbiturates NEGATIVE (NEGATIVE); Benzodiazepines NEGATIVE (NEGATIVE); Cocaine NEGATIVE (NEGATIVE); METHAMPHETAM NEGATIVE (NEGATIVE); Methadone NEGATIVE (NEGATIVE); Opiates NEGATIVE (NEGATIVE); Phencyclidine NEGATIVE (NEGATIVE); THC Cannibis NEGATIVE (NEGATIVE)
[2024-04-28] MEDS: BUPRENORPHINE HCL 600 MCG BC SCH (01:15)
[2024-04-28] MEDS: HOME MED 1 EA UNK (Gabapentin [Neurontin] 800 MG Tablet) PO SCH (01:32)
[2024-04-28] MEDS: TIZANIDINE 4 MG TABLET PO SCH (01:34)
[2024-04-28] MEDS: VENLAFAXINE HCL XR 75 MG CAP PO SCH (01:37)
[2024-04-28] MEDS: BUPRENORPHINE 600 MCG SL SCH (01:45)
[2024-04-28] MEDS: NICOTINE 21 MG/PAT TD SCH (01:59)
[2024-04-28 03:07] VITALS: BMI 42.5
[2024-04-28 05:49] LABS: Absolute Lymphocytes (CBC) 1.2 K/uL (0.7-4.9); Absolute Monocytes 0.2 K/uL (0.1-1.3); Absolute Neutrophil 8.2 K/uL (1.8-8.0); Basophils % 0.5 % (0-1.3); Hematocrit 45.9 % (36.0-45.0); Hemoglobin 14.9 g/dL (12.0-15.0); MCH 27.7 pg (27.0-35.0); MCHC 32.4 g/dL (32.0-36.0); MCV 85.7 fL (80-100); MPV 7.4 fL (7.6-11.3); Monocytes % 1.9 % (3.3-12.3); Neutrophils % 85.6 % (41.7-73.7); Nucleated Red Blood Cells % 0.1 % (0-0); Platelets 270 thou/uL (152-406); RBC Red Blood Cell Count 5.36 M/uL (3.86-4.86); Red Cell Distribution Width 16.5 % (12.1-15.2)
[2024-04-28 05:55] LABS: Albumin 2.5 g/dL (3.4-5.0); Albumin/Globulin Ratio 0.5 (1.1-1.8); Anion Gap 4.2 mEq/L (5.0-15.0); Bilirubin Total 0.3 mg/dL (0.2-1.0); Globulin 4.8 g/dL (2.3-3.5); Magnesium 2.3 mg/dL (1.6-2.4); Potassium 4.2 mEq/L (3.5-5.1); Protein, Total 7.3 g/dL (6.4-8.2)
[2024-04-28] MEDS: PANTOPRAZOLE 40MG TABLET PO SCH (06:38)
[2024-04-28 07:47] LABS: Blood Morphology Comment NOT SEEN (NOT SEEN); Platelet Estimate ADEQ; White Blood Cell Scan OK (OK)
[2024-04-28] MEDS: cloNIDine HCL 0.1 MG TAB PO SCH (09:00)
--- NOTE | 2024-04-28 09:48 | P.PN ---
Subjective Date of Service: 04/28/24 Chief Complaint: stroke like symptoms, COPD exacerbation Subjective: Improving She was admitted in MICU for acute hypercapnic respiratory failure after ABG done at ED. Patient mental status improved after 2 hours of BiPAP last night but patient refused to continue to use BiPAP and about to leave AMA per nurse at bedside. Patient currently using BiPAP, answering simple questions and follow simple commands Review of Systems is unable to be obtained Physical Examination - Vital Signs Temperature: 96.7 F Blood Pressure: 119/65 Pulse: 85 Respirations: 16 Pulse Ox (%): 98 - Physical Exam Other Physical/Emotional Findings: - Physical Exam. General: Morbidly obese, not acutely ill looking, in no apparent distress,. HEENT: Normocephalic, atraumatic, nonicteric sclera, nonanemic conjunctive. Neck: Supple, unable to assess due to her body headache. Respiratory: Normal breathing effort, clear to auscultation bilaterally, no crackles no wheezing or rhonchi. Cardiovascular: Regular rate and rhythm, distant heart sound no murmur no gallop. Gastrointestinal: Normal bowel sounds, nondistended, nontender, No ascites, , No masses, no hepatosplenomegaly. Extremities : No clubbing, No peripheral edema,. Integumentary: No rashes, petechia, suspected lesions. Lymphatics: No axilla or cervical lymphadenopathy. Neurology; drowsy but easily arousable by verbal stimuli, answer simple question and follow simple commands, no focal neurologic deficit - Studies Laboratory Data (last 24 hrs) 04/27/24 04/27/24 04/27/24 14:38 14:38 14:38 WBC 9.40 Hgb 16.4 H Hct 49.2 H Plt Count 293 PT 11.2 INR 1.07 APTT 32.1 Sodium 137 Potassium 4.1 BUN 9 Creatinine 0.76 Glucose 109 H Magnesium 2.1 Total Bilirubin 0.3 AST 18 ALT 18 Alkaline Phosphatase 106 Assessment And Plan - Plan This is a 54 years old female patient with complex medical problem including morbid obesity, obstructive sleep apnea on CPAP at home, polysubstance abuse including Suboxone, muscle relaxer, COPD who was brought to emergency room for strokelike symptom with altered mental status and dysarthria and admitted in MICU for acute hypercapnic respiratory failure #1 acute hypercapnic respiratory failure secondary to suspected respiratory depression due to drug overdose or CO2 narcosis Initial ABG reviewed pH 7.31, pCO2 71 mmHg, pO2 80 mmHg, serum bicarb 34, will continue BiPAP with respiratory rate 18, inspiratory and expiratory and pressure 14/5, and cut down FiO2 to 40%, repeat ABG 2 hours later, patient is intolerant of BiPAP. I will consult supervisor sewing department for further management of hypercapnic respiratory failure and possible obesity hypoventilation syndrome, chest x-ray on admission no sign of pulmonary edema or pneumonia, negative UDS #2 strokelike symptom likely related to #1 No thrombolysis given at ED due to out of the window of treatment ,no unilateral limb weakness, unremarkable CT of the head, no large vessel occlusion by CT a of head and neck, patient refused brain MRI Speech therapy ordered, n.p.o. in the meantime, neurology has been called from ED #3 hyperlipidemia LDL cholesterol 176, total cholesterol 260 in March 2023 DVT prophylaxis heparin subcu Disposition; patient currently need ICU care
[2024-04-28 10:24] LABS: Thyroid Stimulating Hormone 0.131 uIU/mL (0.358-3.740)
[2024-04-28] MEDS: ROFLUMILAST 500 MCG TABLET PO SCH (10:35)
[2024-04-28] MEDS: ASPIRIN EC 81 MG TAB PO SCH (10:35)
[2024-04-28] MEDS: LOSARTAN POTASSIUM 50 MG TABLET PO SCH (10:36)
[2024-04-28] MEDS: SPIRONOLACTONE 25 MG TABLET PO SCH (10:36)
[2024-04-28] MEDS: AMLODIPINE 10 MG TAB PO SCH (10:36)
[2024-04-28] MEDS: predniSONE 10 MG TAB PO SCH (10:36)
[2024-04-28 11:18] LABS: Blood Gas Oxyhemoglobin 95.3 % (94-97); Blood O2 Saturation 97.9 % (92-98.5)
[2024-04-28 11:19] LABS: Arterial Blood Carboxyhemoglob 1.8 % (0-1.5); Blood Gas THB 15.6 g/dl (12-18)
--- NOTE | 2024-04-28 11:54 | CON ---
Reason For Consultation: Consultation called because of possible stroke. History Of Present Illness: Ms. De La Cruz is a 54-year-old right-handed patient with extreme ob esity and chronic obstructive lung disease, hypertension, reported prior stroke, congestive heart douglas lure, and multiple sclerosis, followed by Dr. Mekhi Senior. She was currently at home and doing ok ay until the 9 a.m. time of 02/24/2025 when her daughter found her around noon time, not speaking and appearing to have right facial droop and left-sided weakness. She also had headache with shortness of breath. She has been on Kesimpta for MS prophylactic treatment and had received steroids high dos e, but was unsure when her last multiple sclerosis exacerbation was. In the event, the laboratory st udies included an arterial blood gas showing pH of 7.31, pCO2 of 71.4. She was put on CPAP, which be janice to improve how the patient was doing and responding. She had CT scan of the head and CT angiogra m of head and neck showing no acute abnormalities. There were no large vessel occlusion identified a nd again no intracranial abnormalities. Laboratory studies showed essentially unremarkable complete blood count with differential except for reflection of dehydration. INR 1.07. Arterial blood gas ag ain as noted. The electrolyte and basic metabolic panel essentially unremarkable. However, her TSH was found to be very low at 0.131 and thyroid panel is pending. LDL elevated to 207, and blood sugar s range 109 to 161. Urine tox screen was negative. Past Medical History: As noted above. Allergies: NO KNOWN DRUG ALLERGIES. Medications: At home, Norvasc 10 mg daily, Belbuca 600 mcg every 12 hours, Trelegy Ellipta inhaled d aily, furosemide 40 mg daily, Neurontin 800 mg 3 times daily, losartan 50 mg daily, mirtazapine 30 mg at bedtime, Prilosec 40 mg daily, prednisone 10 mg twice daily, Roflumilast 500 mcg daily, spironola ctone 25 mg daily, 2 capsules at bedtime, venlafaxine 150 mg daily, clonidine 0.1 mg daily . Social History: She is a current daily smoker and uses caffeinated beverages, but no alcohol. Family History: Noncontributory. Review of Systems: She had confusion, shortness of breath, diffuse weakness, and some mild tremors when trying to mainta in posture. Otherwise, no other positives on a 10-point systems review. Physical Examination: Vital Signs: Blood pressure is 162/84, pulse of 85, respiratory rate 16, temperature 97.9, oxygen sa turation is 98%. She did have oxygen in the CPAP. She has 4 L flow rate. As noted, CT scan of head and CT angiogram of head and neck were reported and are unremarkable. Ches t x-ray shows pulmonary vascular congestion. In terms of her examination, cranial nerves show no foc al cranial nerve deficits on 2 through 12. She has extraocular movements intact. Face is symmetric with equal excursions on smiling bilaterally. Motor examination, she has no focal obvious deficits. She is able to hold both hands upright, can count both legs up for 10 count. She has no noted asymm etry in sensation. No loss or extinction noted. Some mild tremors when holding her hands up in cons tant posture. Gait was not assessed. Reflexes symmetric. Assessment: Ms. De La Curz is a 54-year-old patient with multiple medical problems including extreme obesi ty, COPD with likely mild COPD exacerbation, pulmonary congestion, and increased CO2 with low pH. No evidence of a new stroke or actual stroke with deficits at this point. She has hypertension with po or control and is treated for depression with Effexor. She is followed by Dr. Mekhi Senior for mul tiple sclerosis. Plan: She will benefit from an open MRI, which actually the patient did refuse, the open MRI and heri se MRI. There is an Upright MRI of [place] that may be helpful to do with and without contrast to determine if she has a flare-up. However, she will follow up with Dr. Mekhi Senior for that. She has been on Kesimpta monthly injections for multiple sclerosis that may be restarted based on when s he last received medication. The steroids are okay to continue at this point. She should be on kirill ntive spirometry at home and may require CPAP at night. She likely has obstructive sleep apnea that is perhaps undiagnosed. At this point, she seems stable and I would not advise an MRI with anesthesi a or heavy sedation as that may make it difficult for her to get off intubation if she is to go into deep sedation. She may again follow up with Dr. Mekhi Senior after discharge. LB/RAO Voice ID: [id number] Report ID: [id number]
--- NOTE | 2024-04-28 12:29 | P.CNS ---
Date of Consult: 04/28/24 Reason for Consult: Respiratory failure Chief Complaint: stroke like symptoms, COPD exacerbation History of Present Illness: Patient is 54 years of age metabolic syndrome was found obtunded by family members stability of a stroke she was admitted currently unresponsive on BiPAP she is hypoxic hypercapnic respiratory failure is stable Allergies No Known Allergies Allergy (Unverified 05/07/11 12:35) Home Medications: Amlodipine [Norvasc] 10 mg PO DAILY 04/27/24 Buprenorphine HCl [Belbuca] 600 mcg BC Q12H 04/27/24 Fluticasone/Umeclidin/Vilanter [Trelegy Ellipta 100-62.5-25] 1 inh IH DAILY 04/27/24 Furosemide 40 mg PO DAILY 04/27/24 Gabapentin [Neurontin] 800 mg PO TID 04/27/24 Losartan Potassium 50 mg PO DAILY 04/27/24 Mirtazapine 30 mg PO BEDTIME 04/27/24 Omeprazole [Prilosec] 40 mg PO DAILY 04/27/24 Prednisone [Sterapred Ds] 10 mg PO BID 04/27/24 Roflumilast 500 mcg PO DAILY 04/27/24 Spironolactone 25 mg PO DAILY 04/27/24 Tizanidine [Zanaflex*] 2 cap PO BEDTIME 04/27/24 Venlafaxine HCl [Effexor XR] 150 mg PO 30 MIN BEFORE HS 04/27/24 cloNIDine HCL [Clonidine HCl] 0.1 mg PO DAILY 04/27/24 - Past Medical/Surgical History Diabetic: Yes -: Opioid pain management -: COPD -: CVA -: HTN -: CHF -: Multiple Sclerosis Psychosocial/ Personal History: 2 children at bedside, sees Dr. Knight, difficult to get good social hx - Social History Smoking Status: Current every day smoker Caffeine use: Yes Place of Residence: Home Review of Systems is unable to be obtained Physical Examination Temp Pulse Resp BP Pulse Ox 96.7 F L 73 16 148/83 H 95 04/28/24 09:52 04/28/24 11:00 04/28/24 11:00 04/28/24 11:00 04/28/24 11:00 General: Unresponsive Respiratory: Clear to auscultation bilaterally Cardiovascular: No edema, Normal S1 S2 Gastrointestinal: Normal bowel sounds, Soft and benign Laboratory Data (last 24 hrs) 04/27/24 04/27/24 04/27/24 14:38 14:38 14:38 WBC 9.40 Hgb 16.4 H Hct 49.2 H Plt Count 293 PT 11.2 INR 1.07 APTT 32.1 Sodium 137 Potassium 4.1 BUN 9 Creatinine 0.76 Glucose 109 H Magnesium 2.1 Total Bilirubin 0.3 AST 18 ALT 18 Alkaline Phosphatase 106 - Problems (1) Respiratory failure with hypoxia and hypercapnia Current Visit: Yes Status: Acute Plan: Patient is 54 years of age admitted with hypoxic hypercapnic respiratory failure likely this is chronic as her bicarbonate is also elevated his white count is normal there is no pneumonia no evidence of stroke on the CT scan continue with bronchodilators steroids APAP/ Hx of MS Qualifiers: Chronicity: unspecified Qualified Code(s): J96.91 - Respiratory failure, unspecified with hypoxia; J96.92 - Respiratory failure, unspecified with hypercapnia
[2024-04-28] MEDS: THIAMINE 200 MG/2 ML INJ IVP SCH (13:56)
[2024-04-28] MEDS: ACETAMINOPHEN 500 MG TAB PO PRN (17:58)
[2024-04-28] MEDS ORDERED: MIRTAZAPINE 15 MG TAB PO SCH (21:00)
[2024-04-29] MEDS: TIZANIDINE 4 MG TABLET PO ONE (01:30)
[2024-04-29] MEDS: VENLAFAXINE HCL XR 75 MG CAP PO ONE (01:30)
[2024-04-29] MEDS: GABAPENTIN 400 MG CAP PO ONE (01:31)
--- NOTE | 2024-04-29 09:23 | P.PN ---
Subjective Date of Service: 04/29/24 Chief Complaint: stroke like symptoms, COPD exacerbation Subjective: Improving Now she is alert awake at her baseline after using BiPAP for 2 days in ICU, she states that she did not use her CPAP/BiPAP machine at night for few days because she ran out of water supply? She denied any focal weakness or dysphagia or dysarthria or headache or shortness of breath. She has been diagnosed with multiple sclerosis, taking muscle relaxer and Biologics prescribed by her own neurologist. She is scheduled for brain MRI outpatient. Review of Systems Other: Consitutional; fever(-), chills (-), rigor(-), night sweat(-), unintentional weight loss(-), malaise (-) HEENT; diplopia (-), rhinorrhea (-), epistaxis (-), otorrhea (-), otalgia (-) Respiratory; shortness of breath (-), wheezing (-), cough (-), sputum (-), pleuritic chest pain (-) Cardiovascular; chest pain (-), peripheral edema (-), paroxysmal nocturnal dyspnea (-), orthopnea (-) Gastrointestinal; nausea (-), vomiting (-), abdominal pain (-), diarrhea (-), constipation (-), melena (-), hematochezia (-) Genitourinary; urinary frequency (-), dysuria (-), urgency (-), flank pain (-), gross hematuria (-), incontinence (-) Skin; rash (-), pruritus (-) 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 General: Morbidly obese, not acutely ill looking, in no apparent distress,. HEENT: Normocephalic, atraumatic, nonicteric sclera, nonanemic conjunctive. Neck: Supple, unable to assess due to her body headache. Respiratory: Normal breathing effort, clear to auscultation bilaterally, no crackles no wheezing or rhonchi. Cardiovascular: Regular rate and rhythm, distant heart sound no murmur no gallop. Gastrointestinal: Normal bowel sounds, nondistended, nontender, No ascites, , No masses, no hepatosplenomegaly. Extremities : No clubbing, No peripheral edema,. Integumentary: No rashes, petechia, suspected lesions. Lymphatics: No axilla or cervical lymphadenopathy. Neurology; alert, awake oriented x 3, no focal neurologic deficit Assessment And Plan - Plan This is a 54 years old female patient with complex medical problem including morbid obesity, obstructive sleep apnea on CPAP at home, polysubstance abuse including Suboxone, muscle relaxer, COPD who was brought to emergency room for strokelike symptom with altered mental status and dysarthria and admitted in MICU for acute hypercapnic respiratory failure #1 acute on chronic hypercapnic respiratory failure secondary to noncompliance with home CPAP Improved, repeat ABG reviewed pH 7.36, pCO2 down to 61 mmHg from 71 mmHg chest x-ray on admission no sign of pulmonary edema or pneumonia, negative UDS #2 metabolic encephalopathy secondary to #1 strokelike symptom such as dysarthria, drowsiness resolved, likely related to #1 No thrombolysis given at ED ,no unilateral limb weakness, unremarkable CT of the head, no large vessel occlusion by CT a of head and neck, #3 morbid obesity complicated by obstructive sleep apnea and possible obesity hypoventilation syndrome #3 hyperlipidemia Started on statin, LDL cholesterol 176, total cholesterol 260 in March 2023 DVT prophylaxis heparin subcu Disposition; I will order downgrade patient to regular floor today
[2024-04-29] MEDS ORDERED: ONDANSETRON 4 MG (ODT) TAB PO PRN (16:00)
[2024-04-29] MEDS ORDERED: cloNIDine HCL 0.1 MG TAB PO PRN (16:03)
[2024-04-29] MEDS ORDERED: cloNIDine HCL 0.1 MG TAB PO SCH (21:00)
[2024-04-29] MEDS: TIZANIDINE 4 MG TABLET PO SCH (21:26)
[2024-04-29] MEDS: VENLAFAXINE HCL XR 75 MG CAP PO SCH (21:26)
[2024-04-30 07:27] VITALS: O2SAT 94
--- NOTE | 2024-04-30 07:34 | P.PN ---
Subjective Date of Service: 04/30/24 Chief Complaint: Resp failure Subjective: Improving (Doing much better today. alert states problem with CPAP Denies any other complaints) Review of Systems Unremarkable Physical Examination - Vital Signs Temperature: 97.5 F Blood Pressure: 137/74 Pulse: 70 Respirations: 19 Pulse Ox (%): 94 - Physical Exam General: Alert, Oriented x3 Respiratory: Clear to auscultation bilaterally Cardiovascular: No edema, Regular rate/rhythm, Normal S1 S2 Assessment And Plan - Current Problems (Diagnosis) (1) Respiratory failure with hypoxia and hypercapnia Current Visit: Yes Status: Acute Plan: PT AW resp failure Much better Was having problems with CPAP. [place] to Tx to the floor. LAbs rev. NE of sepsis. Discahrge planning Qualifiers: Chronicity: unspecified Qualified Code(s): J96.91 - Respiratory failure, unspecified with hypoxia; J96.92 - Respiratory failure, unspecified with hypercapnia Discharge Plan: Home Plan to discharge in: 24 Hours
[2024-04-30 08:58] VITALS: BP 163/83
[2024-04-30 09:03] VITALS: TEMP 98.1
--- NOTE | 2024-04-30 10:29 | P.DS ---
Admission Date: 04/27/24 Discharge Date: 04/30/24 Disposition: ROUTINE DISCHARGE Discharge Condition: GOOD Reason for Admission: Resp failure Brief History of Present Illness: This is a 54 years old female patient with complex medical problem including morbid obesity, obstructive sleep apnea on CPAP at home, multiple sclerosis on biologic and muscle relaxer , polysubstance abuse including Suboxone, hypertension, COPD, who was brought to emergency room for strokelike symptom with altered mental status and dysarthria and admitted in MICU for acute hypercapnic respiratory failure. Hospital Course: She was treated with BiPAP in ICU, her mental status significantly improved the following day along with ABG. It turned out patient did not use her CPAP machine for a few days prior to admission because she ran out of sterile water for the machine. She fully recovered to her baseline and downgraded to general medical floor on April 29. She is being discharged home. Plan is to continue to use her CPAP machine as prescribed and follow-up with the grizzly worker, outpatient brain MRI as scheduled for her multiple sclerosis and see her own neurologist again after discharge. #1 acute on chronic hypercapnic respiratory failure secondary to noncompliance with home CPAP Improved, repeat ABG reviewed pH 7.36, pCO2 down to 61 mmHg from 71 mmHg chest x-ray on admission no sign of pulmonary edema or pneumonia, negative UDS #2 metabolic encephalopathy secondary to #1 strokelike symptom such as dysarthria, drowsiness resolved, No thrombolysis given at ED unremarkable CT of the head, no large vessel occlusion by CT a of head and neck, #3 morbid obesity complicated by obstructive sleep apnea and possible obesity hypoventilation syndrome #4 hyperlipidemia Started on statin, LDL cholesterol 176, total cholesterol 260 in March 2023 #5 history of multiple sclerosis on Biologics and muscle relaxer Vital Signs/Physical Exam: Temp Pulse Resp BP Pulse Ox 98.1 F 67 16 163/83 H 90 L 04/30/24 08:00 04/30/24 08:57 04/30/24 08:00 04/30/24 08:57 04/30/24 08:00 Other Physical/Emotional Findings: - Physical Exam. General: Morbidly obese, not acutely ill looking, in no apparent distress,. HEENT: Normocephalic, atraumatic, nonicteric sclera, nonanemic conjunctive. Neck: Supple, unable to assess due to her body headache. Respiratory: Normal breathing effort, clear to auscultation bilaterally, no crackles no wheezing or rhonchi. Cardiovascular: Regular rate and rhythm, distant heart sound no murmur no gallop. Gastrointestinal: Normal bowel sounds, nondistended, nontender, No ascites, , No masses, no hepatosplenomegaly. Extremities : No clubbing, No peripheral edema,. Integumentary: No rashes, petechia, suspected lesions. Lymphatics: No axilla or cervical lymphadenopathy. Neurology; alert, awake oriented x 3, no focal neurologic deficit Laboratory Data at Discharge: WBC 9.60 thou/uL (4.3-10.9) 04/28/24 05:14 Hgb 14.9 g/dL (12.0-15.0) D 04/28/24 05:14 Hct 45.9 % (36.0-45.0) H 04/28/24 05:14 Plt Count 270 thou/uL (152-406) 04/28/24 05:14 PT 11.2 SECONDS (9.4-12.5) 04/27/24 14:38 INR 1.07 04/27/24 14:38 APTT 32.1 SECONDS (24.3-36.9) 04/27/24 14:38 Sodium 137 mEq/L (136-145) 04/28/24 05:14 Potassium 4.2 mEq/L (3.5-5.1) 04/28/24 05:14 BUN 11 mg/dL (7-18) 04/28/24 05:14 Creatinine 0.69 mg/dL (0.55-1.02) 04/28/24 05:14 Glucose 161 mg/dL (74-106) H 04/28/24 05:14 Phosphorus 3.0 mg/dL (2.5-4.9) 04/28/24 05:14 Magnesium 2.3 mg/dL (1.6-2.4) 04/28/24 05:14 Total Bilirubin 0.3 mg/dL (0.2-1.0) 04/28/24 05:14 AST 14 U/L (15-37) L 04/28/24 05:14 ALT 17 U/L (13-56) 04/28/24 05:14 Alkaline Phosphatase 91 U/L (45-117) 04/28/24 05:14 LDL Cholesterol Direct Cancelled 04/28/24 Unknown Home Medications: Amlodipine [Norvasc*] 10 mg PO DAILY 04/27/24 Buprenorphine HCl [Belbuca] 600 mcg BC Q12H 04/27/24 Fluticasone/Umeclidin/Vilanter [Trelegy Ellipta 100-62.5-25] 1 inh IH DAILY 04/27/24 Furosemide 40 mg PO DAILY 04/27/24 Gabapentin [Neurontin] 800 mg PO TID 04/27/24 Losartan Potassium 50 mg PO DAILY 04/27/24 Mirtazapine 30 mg PO BEDTIME 04/27/24 Omeprazole [Prilosec] 40 mg PO DAILY 04/27/24 Prednisone [Sterapred Ds] 10 mg PO BID 04/27/24 Roflumilast 500 mcg PO DAILY 04/27/24 Spironolactone 25 mg PO DAILY 04/27/24 Tizanidine [Zanaflex*] 2 cap PO BEDTIME 04/27/24 Venlafaxine HCl [Effexor XR] 150 mg PO 30 MIN BEFORE HS 04/27/24 cloNIDine HCL [Clonidine HCl] 0.1 mg PO DAILY 04/27/24 Atorvastatin Calcium [Lipitor] 80 mg PO BEDTIME 30 Days #30 tab 04/30/24 Nicotine [Nicoderm*] 21 mg TD DAILY #15 04/30/24 Tizanidine [Zanaflex*] 8 mg PO BEDTIME tab 04/30/24 Venlafaxine HCl *Xr* [Effexor XR] 225 mg PO DAILY cap 04/30/24 New Medications: Atorvastatin Calcium [Lipitor] 80 mg PO BEDTIME 30 Days #30 tab Nicotine [Nicoderm*] 21 mg TD DAILY #15 Diet: AHA Activity: Ad vicki Followup: Geovany Aldana MD [ACTIVE - CAN ADMIT] - 1-2 Weeks STIVEN SEWELL [Primary Care Provider] - 1-2 Weeks
== END 2024-04-30 10:52 | disposition home or self-care (01) | DRG 140 ==
LOC: ER 14:27 → ERHOLD 17:29 → 2ND 18:02 → ERHOLD 18:36 → 3RD-ICU 22:00 → 2ND 04-29 12:00
PROVIDERS: ADMIT Internal Medicine; ATTEND Internal Medicine
PROC: 5A09457 Assistance with Respiratory Ventilation, 24-96 Consecutive Hours, Continuous Positive Airway Pressure (ICD-10-PCS; principal; 2024-04-27)
PROC: 4A033R1 Measurement of Arterial Saturation, Peripheral, Percutaneous Approach (ICD-10-PCS; 2024-04-27)
DX: J44.1 Chronic obstructive pulmonary disease with (acute) exacerbation (principal); J96.22 Acute and chronic respiratory failure with hypercapnia; Z99.81 Dependence on supplemental oxygen; Z87.891 Personal history of nicotine dependence; I11.0 Hypertensive heart disease with heart failure; I50.9 Heart failure, unspecified; E78.5 Hyperlipidemia, unspecified; F41.8 Other specified anxiety disorders; G47.00 Insomnia, unspecified; E66.01 Morbid (severe) obesity due to excess calories; Z68.41 Body mass index [BMI] 40.0-44.9, adult; T65.91XA Toxic effect of unspecified substance, accidental (unintentional), initial encounter; G35 Multiple sclerosis; G93.41 Metabolic encephalopathy; J96.21 Acute and chronic respiratory failure with hypoxia
CPT/HCPCS: 36415; 36600; 70450; 70496; 70498; 71045; 80048; 80053; 80076; 80307; 82565; 82805; 82947; 83735; 84100; 84443; 84484; 85025; 85610; 85730; 93005; 94660; 94760; 96374; 96375; 99285; J1644; J2310; J2919; J3411; J7512; J7613; J7644; Q9967

== ENCOUNTER 2024-06-12 20:36 | Inpatient (IN) | payer MEDICAID ==
--- OUTSIDE RECORDS SUMMARY | 2024-06-12 20:42 | XMS REPORT | Continuity of Care Document ---
Author Name Unknown Address [address] [facility] [address] [place] [address] [facility] [place] Address [address] [facility] [address] [place] [address] Care Team Providers Care Deadener Name Role Phone Migdalia Aldana MD Primary Care Physician [phone] Sd Murphy Attending Clinician Unavailable RADIOLOGY Attending Clinician Unavailable Radiology Attending Clinician Unavailable Vinay Vasquez MD Attending Clinician [phone] MEKHI SENIOR Attending Clinician Unavail able MEKHI SENIOR Attending Clinician Unavail able VINAY VASQUEZ Attending Clinician Unavailable KACEY NOBLE Attending Clinician Unavailable Kacey Noble NP Attending Clinician [phone] Lab, Ang - Db Attending Clinician Unavailable Mekhi Senior MD Attending Clinician [phone] Vinay Vasquez MD Attending Clinician [phone], Adc Lab Attending Clinician Unavailable Mekhi Senior MD Attending Clinician [phone] GC_LEH_Le_D Attending Clinician Unavailable MIGDALIA TOWNSEND Admitting Clinician Unavailable KACEY NOBLE Admitting Clinician Unavailable GC_LEH_Le_D Admitting Clinician Unavailable Payers Payer Name Policy Type Policy Number Effective Date Expirati on Date Source [facility] [id number] 00:00:00 [facility] [place] (MEDICAID HMO) [id number] 2021 00:00:00 [facility] (MEDICAID REPLACEMENT - HMO) [id number] [place] [id number] Problems Condition Name Condition Details Condition Category Status Onset Date Resolution Date Last Treatment Date Treating Clinician Comments Source Morbid obesity Morbid obesity Disease Active 10-09 00:00: 00 [facility] Cigarette smoker Cigarette smoker Disease Active 10-09 00:00: 00 [facility] Bilateral carotid artery stenosis Bilateral carotid artery stenosis Disease Active 10-09 00:00: 00 [facility] Chronic obstructiv e pulmonary disease, unspecifie d COPD type Chronic obstructiv e pulmonary disease, unspecifie d COPD type Disease Active 10-09 00:00: 00 [facility] Left heart failure Left heart failure Disease Active 10-09 00:00: 00 [facility] Coronary artery disease involving [place] coronary artery of [place] heart without angina pectoris Coronary artery disease involving [place] coronary artery of [place] heart without angina pectoris Disease Active 10-09 00:00: 00 [facility] Hyperlipid emia, unspecifie d hyperlipid emia type Hyperlipid emia, unspecifie d hyperlipid emia type Disease Active 10-09 00:00: 00 [facility] Primary hypertensi on Primary hypertensi on Disease Active 10-09 00:00: 00 [facility] HIRA (obstructi ve sleep apnea) HIRA (obstructi ve sleep apnea) Disease Active 10-09 00:00: 00 [facility] Moderate chronic obstructiv e pulmonary disease Moderate [...] presence Disease Active 08-02 00:00: 00 [facility] Pain of left hand Pain of left hand Disease Active 03-26 00:00: 00 [facility] Obesity (BMI 30-39.9) Obesity (BMI 30-39.9) Disease Active 03-19 00:00: 00 [facility] Family history of uterine cancer Family history of uterine cancer Disease Active 08-10 00:00: 00 [facility] Family history of ovarian cancer Family history of ovarian cancer Disease Active 08-10 00:00: 00 [facility] Family history of breast cancer Family history of breast cancer Disease Active 08-10 00:00: 00 [facility] History of bladder repair surgery History of bladder repair surgery Disease Active 08-10 00:00: 00 [facility] History of gastric bypass History of gastric bypass Disease Active 08-10 00:00: 00 [facility] History of total hysterecto my with bilateral salpingo-o ophorectom y (BSO) History of total hysterecto my with bilateral salpingo-o ophorectom y (BSO) Disease Active 08-10 00:00: 00 [facility] Mixed incontinen ce Mixed incontinen ce Disease Active 08-10 00:00: 00 [facility] Migraine with aura and with status migrainosu s, not intractabl e Migraine with aura and with status migrainosu s, not intractabl e Disease Active 08-10 00:00: 00 [facility] Family history of WI (myocardia l infarction ) Family history of [place] (myocardia l infarction ) Disease Active 08-10 00:00: 00 [facility] Family history of blood clots Family history of blood clots Disease Active 08-10 00:00: 00 [facility] History of blood clots History of blood clots Disease Active 08-10 00:00: 00 [facility] Tobacco use disorder Tobacco use disorder Disease Active 08-10 00:00: 00 [facility] Surgical menopause Surgical menopause Disease Active 08-10 00:00: 00 [facility] Postmenopa usal atrophic vaginitis Postmenopa usal atrophic vaginitis Disease Active 08-10 00:00: 00 [facility] Perimenopa usal vasomotor symptoms Perimenopa usal vasomotor symptoms Disease Active 08-10 00:00: 00 [facility] 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 [facility] [id number] BMI 40.0-44.9, adult Problem [facility] [id number] Mood disorder Problem [facility] [id number] Multiple sclerosis Problem [facility] [id number] Abnormal mammogram Problem [facility] [id number] Vitamin D deficiency Problem [facility] [id number] Congestive heart failure, unspecifie d HF chronicity , unspecifie d heart failure type Problem [facility] [id number] On home O2 Problem [facility] [id number] Primary insomnia Problem [facility] Allergies, Adverse Reactions, Alerts Allergy Name Allergy Type Status Severity Reaction(s) Onset Date Inactive Date Treating Clinician Comments Source Zofran Propensi ty to adverse reaction to drug Active 1- 00:00: 00 Alexy Lisa Cabrera ZOLPIDEM DRUG INGREDI Active Rash 10-30 00:00: 00 [facility] Zolpidem Propensi ty to adverse reaction s Active Rash 10-30 00:00: 00 [facility] Ambien Allergy to substanc e Active Mild Dizziness 9 00:00: 00 [facility] MEPERIDI NE HCL DRUG INGREDI Active N/V 03-19 00:00: 00 [facility] Meperidi ne Hcl Propensi ty to adverse reaction s Active Nausea and/or Vomiting 03-19 00:00: 00 [facility] Ondanset jordon Hcl (Pf) Propensi ty to adverse reaction s Active Unknown - See comments 08-10 00:00: 00 Out of her mind / [facility] LISINOPR [place] DRUG INGREDI Active Anaphylaxis 08-10 00:00: 00 [facility] ONDANSET JORDON HCL (PF) DRUG Active Unknown-Cmnt 08-10 00:00: 00 [facility] Lisinopr il Propensi ty to adverse reaction s Active Anaphylaxis 08-10 00:00: 00 [facility] Zofran Allergy to substanc e Active [facility] Lisinopr il Allergy to substanc e Active Dyspnea [facility] Morphine Allergy to substanc e Active [facility] Tramadol Allergy to substanc e Active [facility] Social History Social Habit Start Date Stop Date Quantity Comments Source History of tobacco use Cigarette Smoker [facility] Alcoholic beverage intake 2023-11-07 00:00:00 2023-11-07 00:00:00 0 /d [facility] History of Social function 2023-10-31 00:00:00 2023-10-31 00:00:00 [facility] Sex assigned at 1970 00:00:00 1970 00:00:00 [facility] Smoking Status Start Date Stop Date Source Never Smoker [facility] Smokes tobacco daily 2023-10-31 00:00:00 [facility] Medications Ordered Medication Name Filled Medication Name Start Date Stop Date Current Medication? Ordering Clinician Indication Dosage Frequency Signature (SIG) Comments Components Source Vitamin D3 1.25 MG (18607 UT) Vitamin D3 1.25 MG (45901 UT) 05-05 00:00: 00 No 1{capsu le} Vitamin D3 1.25 MG (16097 UT) Nicotine 14 MG/24HR Nicotine 14 MG/24HR 05-05 00:00: 00 No 1{patch _to_ski n} QD Nicotine 14 MG/24HR Ibuprofen 600 MG Ibuprofen 600 MG 1- 00:00: 00 No BID Ibuprofen 600 MG Daliresp 500 mcg tablet - 00:00: 00 Yes 1mcg Alexy Cabrera Azithromyci n 250 MG Azithromyci n 250 MG 2023-03- 00:00: 00 No QD Azithromyc in 250 MG nystatin (NYSTOP) powder 11-07 01:00: 00 Yes Topical, BID, First dose on Fri11/07/23 at 2000, Until Discontinu ed, Routine [facility] benzonatate (TESSALON PERLES) capsule 100 mg 11-06 22:00: 00 11-06 21:03 :00 No 100mg 100 mg, Oral, ONCE, 1 dose, On Fri11/07/23 at 1700, Routine [facility] iopamidol (ISOVUE 370-500 mL) injection 85 mL 2024-0 8-23 21:45: 00 11-06 22:00 :00 No [id number] 85mL 85 mL, Intravenou s, ONCE, 1 dose, On Fri11/07/23 at 1700, Routine [facility] albuterol (PROVENTIL) 2.5 mg /3 mL (0.083 %) nebulizer solution 2.5 mg 11-06 20:30: 00 11-06 20:39 :00 No 2.5mg 2.5 mg, Inhalation , ONCE, 1 dose, On Fri11/07/23 at 1530, [facility] aspirin tablet 325 mg 11-06 19:30: 00 11-06 20:23 :00 No 325mg 325 mg, Oral, ONCE, 1 dose, On Fri11/07/23 at 1430, STAT [facility] sodium chloride (NS) injection 5 mL 11-06 19:27: 59 Yes 5mL 5 mL, Intravenou s, PRN, Starting on Fri11/07/23 at 1427, Until Discontinu ed, Routine, IV line flushing [facility] perflutren protein-A microsphr (OPTISON) injection 3 mL 11-06 19:00: 00 11-06 19:00 :00 No [id number] 3mL 3 mL, IV Push, ONCE, 1 dose, On Fri11/07/23 at 1400, Routine [facility] gabapentin 800 mg tablet 11-03 00:00: 00 Yes 800mg Take 1 tablet by mouth in the morning and 1 tablet at noon and 1 tablet in the evening. [facility] venlafaxine XR 75 mg 24 hr capsule 10-13 00:00: 00 Yes 75mg Take 1 capsule by mouth at bedtime. [facility] spironolact one 25 mg tablet 10-12 00:00: 00 Yes 25mg Take 1 tablet by mouth in the morning. [facility] losartan 50 mg tablet 10-10 00:00: 00 Yes 50mg Take 1 tablet by mouth in the morning. [facility] furosemide 40 mg tablet 10-09 00:00: 00 Yes [id number] 40mg Take 1 tablet by mouth in the morning. [facility] busPIRone 10 mg tablet 10-07 00:00: 00 Yes 10mg Take 1 tablet by mouth in the morning and 1 tablet at noon and 1 tablet in the evening. [facility] tizanidine 4 mg tablet Take 3 tablets [...] oral route as directed for 30 days. [facility] evening primrose oil 100MG [...] oral route as directed for 90 days. [facility] paroxetine 30 mg tablet Take 1 tablet every day by oral route as directed for 90 days. paroxetine 30 mg tablet Take 1 tablet every day by oral route as directed for 90 days. 12-03 00:00: 00 No 1 Q1D paroxetine 30 mg tablet Take 1 tablet every day by oral route as directed for 90 days. [facility] phentermine 37.5 mg capsule Take 1 capsule twice a day by oral route as directed for 90 days. phentermine 37.5 mg capsule Take 1 capsule twice a day by oral route as directed for 90 days. 12-03 00:00: 00 No 1capsul e(s) BID phentermin e 37.5 mg capsule Take 1 capsule twice a day by oral route as directed for 90 days. [facility] tizanidine 4 mg tablet Take 3 tablets every day by oral route at bedtime for 30 days. tizanidine 4 mg tablet Take 3 tablets every day by oral route at bedtime for 30 days. 12-03 00:00: 00 No 3 Q1D tizanidine 4 mg tablet Take 3 tablets every day by oral route at bedtime for [address] [facility] buspirone 10 mg tablet Take 1 tablet 3 times a day by oral route as directed for 30 days. buspirone 10 mg tablet Take 1 tablet 3 times a day by oral route as directed for 30 days. 2022-0 9-19 00:00: 00 No 1 TID buspirone 10 mg tablet Take 1 tablet 3 times a day by oral route as directed for 30 days. [facility] evening primrose oil 100MG BID evening primrose oil 100MG BID 12-03 00:00: 00 No evening primrose oil 100MG BID [facility] gabapentin 800 mg tablet [...] oral route as directed for 90 days. [facility] phentermine 37.5 mg capsule Take 1 capsule twice a day by oral route as directed for 90 days. phentermine 37.5 mg capsule Take 1 capsule twice a day by oral route as directed for 90 days. 12-03 00:00: 00 No 1capsul e(s) BID phentermin e 37.5 mg capsule Take 1 capsule twice a day by oral route as directed for [address] [facility] naproxen 500 mg tablet 07-25 00:00: 00 11-06 00:00 :00 No [facility] famotidine 20 mg tablet 07-25 00:00: 00 11-06 00:00 :00 No [facility] methylPREDN ISolone 4 mg tablets 07-12 00:00: 00 11-06 00:00 :00 No [facility] hydrOXYzine 25 mg tablet 07-11 00:00: 00 11-06 00:00 :00 No [facility] FENTanyl 50 mcg/hr patch 07-10 00:00: 00 11-06 00:00 :00 No [facility] ACTEMRA 162 mg/0.9 mL Syrg 06-27 00:00: 00 11-06 00:00 :00 No [facility] amitriptyli ne (ELAVIL) 25 mg tablet 2015-03 00:00: 11-06 00:00 :00 No [facility] leflunomide (ARAVA) 20 mg tablet 2015-03 00:00: 00 11-06 00:00 :00 No [facility] Diclofenac Sodium (VOLTAREN) 1 % gel 2015-03 00:00: 00 11-06 00:00 :00 No [facility] ENBREL SURECLICK 50 mg/mL (0.98 mL) injection 2015-03 00:00: 00 10-30 00:00 :00 No [facility] MYRBETRIQ 25 mg tablet 2015-03 00:00: 00 11-06 00:00 :00 No [facility] FENTanyl (DURAGESIC) 25 mcg/hr patch 12-14 00:00: 00 11-06 00:00 :00 No [facility] methotrexat e (RHEUMATREX ) 2.5 mg tablet 10-23 00:00: 00 11-06 00:00 :00 No [facility] triamterene -hydrochlor othiazide (DYAZIDE) 37.5-25 mg per capsule 10-23 00:00: 00 11-06 00:00 :00 No [facility] foLIC acid (FOLATE) 1 mg tablet 10-22 00:00: 00 11-06 00:00 :00 No [facility] propranolol (INDERAL LA) 60 mg 24 hr capsule 08-28 00:00: 00 11-06 00:00 :00 No [facility] HYDROcodone -acetaminop hen (NORCO) 10-325 mg tablet 08-04 00:00: 00 11-06 00:00 :00 No [facility] pantoprazol e (PROTONIX) 40 mg EC tablet 07-31 00:00: 00 11-06 00:00 :00 No [facility] losartan-hy drochloroth iazide (HYZAAR) 100-25 mg per tablet 07-25 00:00: 00 11-06 00:00 :00 No [facility] predniSONE (DELTASONE) 10 mg tablet 07-20 00:00: 00 11-06 00:00 :00 No [facility] CRESTOR 10 mg tablet 07-17 00:00: 00 11-06 00:00 :00 No [facility] labetalol (NORMODYNE) 100 mg tablet 09-06 00:00: 00 11-06 00:00 :00 No 100mg Take 1 Tab by mouth every 12 (twelve) hours. [facility] hydrochloro thiazide (ESIDRIX) 25 mg tablet 09-06 00:00: 00 11-06 00:00 :00 No 25mg Take 1 Tab by mouth daily. [facility] zolpidem (AMBIEN) 10 mg tablet 09-06 00:00: 00 11-06 00:00 :00 No 10mg Take 1 Tab by mouth at bedtime as needed for Sleep. [facility] vitamin w/FA (PRENTAL RX) tablet 09-06 00:00: 00 11-06 00:00 :00 No 1{tbl} Take 1 Tab by mouth daily. [facility] docusate calcium (SURFAK) 240 mg capsule 09-06 00:00: 00 11-06 00:00 :00 No 240mg Take 1 Cap by mouth once daily as needed for Constipati on. [facility] ferrous sulfate 325 mg (65 mg Iron) tablet 09-06 00:00: 00 11-06 00:00 :00 No 325mg Take 1 Tab by mouth 2 (two) times daily. [facility] hydrocodone -acetaminop hen (NORCO 5) 5-325 mg tablet 09-06 00:00: 00 11-06 00:00 :00 No 1{tbl} Take 1-2 Tabs by mouth every 6 (six) hours as needed for Pain. Not to be administer ed at the same time as [place] 10 if ordered. For patients < 12 years recommend do not exceed 5 doses or 2.6 gm in 24 hours totals for all acetaminop hen containing products. For adults with normal hepatic function recommend do not exceed 4 grams in 24 hours for all acetaminop hen containing products. [facility] ibuprofen (MOTRIN) 600 mg tablet 09-06 00:00: 00 11-06 00:00 :00 No 600mg Take 1 Tab by mouth every 6 (six) hours as needed for Pain. [facility] Losartan Potassium 50 MG Losartan Potassium 50 MG No 1{table t} QD Losartan Potassium 50 MG amLODIPine Besylate 10 MG amLODIPine Besylate 10 MG No 1{table t} QD amLODIPine Besylate 10 MG Albuterol Sulfate HFA 108 (90 Base) MCG/ACT Albuterol Sulfate HFA 108 (90 Base) MCG/ACT No 1{puff_ as_need ed} 6xD Albuterol Sulfate HFA 108 (90 Base) MCG/ACT Venlafaxine HCl ER 150 MG Venlafaxine HCl ER 150 MG No 1{capsu le_with _food} QD Venlafaxin e HCl ER 150 MG Omeprazole 40 MG Omeprazole 40 MG No QD Omeprazole 40 MG Belbuca 600 MCG Belbuca 600 MCG No BID Belbuca 600 MCG Mirtazapine 30 MG Mirtazapine 30 MG No 1{table t_at_be dtime} QD Mirtazapin e 30 MG Gabapentin 800 MG Gabapentin 800 MG No 1{table t} QD Gabapentin 800 MG levoFLOXaci n 750 MG levoFLOXaci n 750 MG No levoFLOXac in 750 MG Venlafaxine HCl ER 75 MG Venlafaxine HCl ER 75 MG No 1{capsu le_with _food} QD Venlafaxin e HCl ER 75 MG Nicotine 21 MG/24HR Nicotine 21 MG/24HR No 1{patch _to_ski n} QD Nicotine 21 MG/24HR Pravastatin Sodium 40 MG Pravastatin Sodium 40 MG No 1{table t} QD Pravastati n Sodium 40 MG Roflumilast 500 MCG Roflumilast 500 MCG No 1{table t} QD Roflumilas t 500 MCG tiZANidine HCl 4 MG tiZANidine HCl 4 MG No QD tiZANidine HCl 4 MG Spironolact one 25 MG Spironolact one 25 MG No 1{table t} Spironolac tone 25 MG Trelegy Ellipta 100-62.5-25 MCG/ACT Trelegy Ellipta 100-62.5-25 MCG/ACT No 1{puff} QD Trelegy Ellipta 100-62.5-2 5 MCG/ACT predniSONE 10 MG predniSONE 10 MG No 1{table t} QD predniSONE 10 MG Furosemide 40 MG Furosemide 40 MG No 1{table t} QD Furosemide 40 MG Atorvastati n Calcium 80 MG Atorvastati n Calcium 80 MG No 1{table t} QD triamcinolo ne acetonide 40 mg/mL suspension for injection Take 20 mg by injection route. triamcinolo ne acetonide 40 mg/mL suspension for injection Take 20 mg by injection route. No 20mg triamcinol one acetonide 40 mg/mL suspension for injection Take 20 mg by injection route. [facility] trospium 20 mg tablet Take 1 tablet twice a day by oral route. trospium 20 mg tablet Take 1 tablet twice a day by oral route. No 1 BID trospium 20 mg tablet Take 1 tablet twice a day by oral route. [facility] venlafaxine ER 150 mg capsule,ext ended release 24 hr Take 1 capsule every day by oral route. venlafaxine ER 150 mg capsule,ext ended release 24 hr Take 1 capsule every day by oral route. No 1capsul e(s) Q1D venlafaxin e ER 150 mg capsule,ex tended release 24 hr Take 1 capsule every day by oral route. [facility] venlafaxine ER 75 mg capsule,ext ended release 24 hr Take 1 capsule every day by oral route. venlafaxine ER 75 mg capsule,ext ended release 24 hr Take 1 capsule every day by oral route. No 1capsul e(s) Q1D venlafaxin e ER 75 mg capsule,ex tended release 24 hr Take 1 capsule every day by oral route. [facility] Vitamin D2 1,250 mcg (50,000 unit) capsule Take 1 capsule every week by oral route. Vitamin D2 1,250 mcg (50,000 unit) capsule Take 1 capsule every week by oral route. No 1capsul e(s) Q1W Vitamin D2 1,250 mcg (50,000 unit) capsule Take 1 capsule every week by oral route. [facility] amlodipine 10 mg tablet Take 1 [...] Inject 1 mL by intramuscu lar route. [facility] Macrobid 100 mg capsule Take 1 capsule every 12 hours by oral route. Macrobid 100 mg capsule Take 1 capsule every 12 hours by oral route. No 1capsul e(s) Q12H Macrobid 100 mg capsule Take 1 capsule every 12 hours by oral route. [facility] omeprazole 40 mg capsule,del ayed release Take 1 capsule every day by oral route. omeprazole 40 mg capsule,del ayed release Take 1 capsule every day by oral route. No 1capsul e(s) Q1D omeprazole 40 mg capsule,de layed release Take 1 capsule every day by oral route. [facility] paroxetine 30 mg tablet Take 1 tablet every day by oral route as directed for 90 days. paroxetine 30 mg tablet Take 1 tablet every day by oral route as directed for 90 days. No 1 Q1D paroxetine 30 mg tablet Take 1 tablet every day by oral route as directed for 90 days. [facility] tizanidine 4 mg tablet Take 3 tablets every day by oral route at bedtime for 30 days. tizanidine 4 mg tablet Take 3 tablets every day by oral route at bedtime for 30 days. No tizanidine 4 mg tablet Take 3 tablets every day by oral route at bedtime for 30 days. [facility] triamcinolo ne acetonide 40 mg/mL suspension for injection Take 20 mg by injection route. triamcinolo ne acetonide 40 mg/mL suspension for injection Take 20 mg by injection route. No 20mg triamcinol one acetonide 40 mg/mL suspension for injection Take 20 mg by injection route. [facility] trospium 20 mg tablet Take 1 tablet twice a day by oral route. trospium 20 mg tablet Take 1 tablet twice a day by oral route. No trospium 20 mg tablet Take 1 tablet twice a day by oral route. [facility] venlafaxine ER 150 mg capsule,ext ended release 24 hr Take 1 capsule every day by oral route. venlafaxine ER 150 mg capsule,ext ended release 24 hr Take 1 capsule every day by oral route. No 1capsul e(s) Q1D venlafaxin e ER 150 mg capsule,ex tended release 24 hr Take 1 capsule every day by oral route. [facility] venlafaxine ER 75 mg capsule,ext ended release 24 hr Take 1 capsule every day by oral route. venlafaxine ER 75 mg capsule,ext ended release 24 hr Take 1 capsule every day by oral route. No 1capsul e(s) Q1D venlafaxin e ER 75 mg capsule,ex tended release 24 hr Take 1 capsule every day by oral route. [facility] Vitamin D2 1,250 mcg (50,000 unit) capsule Take 1 capsule every week by oral route. Vitamin D2 1,250 mcg (50,000 unit) capsule Take 1 capsule every week by oral route. No 1capsul e(s) Q1W Vitamin D2 1,250 mcg (50,000 unit) capsule Take 1 capsule every week by oral route. [facility] amlodipine 10 mg tablet Take 1 tablet every day by oral route as directed for 30 days. amlodipine 10 mg tablet Take 1 tablet every day by oral route as directed for 30 days. No amlodipine 10 mg tablet Take 1 tablet every day by oral route as directed for [address] [facility] buspirone 10 mg tablet Take 1 tablet [...] Inject 1 mL by intramuscu lar route. [facility] Macrobid 100 mg capsule Take 1 capsule every 12 hours by oral route. Macrobid 100 mg capsule Take 1 capsule every 12 hours by oral route. No 1capsul e(s) Q12H Macrobid 100 mg capsule Take 1 capsule every 12 hours by oral route. [facility] omeprazole 40 mg capsule,del ayed release Take 1 capsule every day by oral route. omeprazole 40 mg capsule,del ayed release Take 1 capsule every day by oral route. No omeprazole 40 mg capsule,de layed release Take 1 capsule every day by oral route. [facility] paroxetine 30 mg tablet Take 1 tablet every day by oral route as directed for 90 days. paroxetine 30 mg tablet Take 1 tablet every day by oral route as directed for 90 days. No paroxetine 30 mg tablet Take 1 tablet every day by oral route as directed for 90 days. [facility] tizanidine 4 mg tablet Take 1 tablet 3 times a day by oral route. tizanidine 4 mg tablet Take 1 tablet 3 times a day by oral route. No 1 TID tizanidine 4 mg tablet Take 1 tablet 3 times a day by oral route. [facility] triamcinolo ne acetonide 40 mg/mL suspension for injection Take 20 mg by injection route. triamcinolo ne acetonide 40 mg/mL suspension for injection Take 20 mg by injection route. No 20mg triamcinol one acetonide 40 mg/mL suspension for injection Take 20 mg by injection route. [facility] trospium 20 mg tablet [...] 1 capsule every day by oral route. [facility] Vitamin D2 1,250 mcg (50,000 unit) capsule Take 1 capsule every week by oral route. Vitamin D2 1,250 mcg (50,000 unit) capsule Take 1 capsule every week by oral route. No Vitamin D2 1,250 mcg (50,000 unit) capsule Take 1 capsule every week by oral route. [facility] amlodipine 10 mg tablet Take 1 tablet every day by oral route as directed for 30 days. amlodipine 10 mg tablet Take 1 tablet every day by oral route as directed for 30 days. No amlodipine 10 mg tablet Take 1 tablet every day by oral route as directed for 30 days. [facility] dexamethaso ne sodium phosphate 4 mg/mL injection solution Inject 1 mL by intramuscul ar route. dexamethaso ne sodium phosphate 4 mg/mL injection solution Inject 1 mL by intramuscul ar route. No 1mL dexamethas one sodium phosphate 4 mg/mL injection solution Inject 1 mL by intramuscu lar route. [facility] ketorolac 30 mg/mL (1 mL) injection solution Inject 1 mL by intramuscul ar route. ketorolac 30 mg/mL (1 mL) injection solution Inject 1 mL by intramuscul ar route. No 1mL ketorolac 30 mg/mL (1 mL) injection solution Inject 1 mL by intramuscu lar route. [facility] Macrobid 100 mg capsule Take 1 capsule every 12 hours by oral route. Macrobid 100 mg capsule Take 1 capsule every 12 hours by oral route. No 1capsul e(s) Q12H Macrobid 100 mg capsule Take 1 capsule every 12 hours by oral route. [facility] Unicoi 10 mg-325 mg tablet Take 1 tablet every 4-6 hours by oral route as needed for 19 days. [place] 10 mg-325 mg tablet Take 1 tablet every 4-6 hours by oral route as needed for 19 days. No 1 Q5H [place] 10 mg-325 mg tablet Take 1 tablet every 4-6 hours by oral route as needed for 19 days. [facility] omeprazole 40 mg capsule,del ayed release Take 1 capsule every day by oral route. omeprazole 40 mg capsule,del ayed release Take 1 capsule every day by oral route. No omeprazole 40 mg capsule,de layed release Take 1 capsule every day by oral route. [facility] paroxetine 30 mg tablet Take 1 tablet every day by oral route as directed for 90 days. paroxetine 30 mg tablet Take 1 tablet every day by oral route as directed for 90 days. No paroxetine 30 mg tablet Take 1 tablet every day by oral route as directed for 90 days. [facility] tizanidine 4 mg tablet Take 1 tablet 3 times a day by oral route. tizanidine 4 mg tablet Take 1 tablet 3 times a day by oral route. No tizanidine 4 mg tablet Take 1 tablet 3 times a day by oral route. [facility] triamcinolo ne acetonide 40 mg/mL suspension for injection Take 20 mg by injection route. triamcinolo ne acetonide 40 mg/mL suspension for injection Take 20 mg by injection route. No 20mg triamcinol one acetonide 40 mg/mL suspension for injection Take 20 mg by injection route. [facility] trospium 20 mg tablet Take 1 tablet twice a day by oral route. trospium 20 mg tablet Take 1 tablet twice a day by oral route. No trospium 20 mg tablet Take 1 tablet twice a day by oral route. [facility] venlafaxine ER 150 mg capsule,ext ended release 24 hr Take 1 capsule every day by oral route. venlafaxine ER 150 mg capsule,ext ended release 24 hr Take 1 capsule every day by oral route. No venlafaxin e ER 150 mg capsule,ex tended release 24 hr Take 1 capsule every day by oral route. [facility] Vitamin D2 1,250 mcg (50,000 unit) capsule Take 1 capsule every week by oral route. Vitamin D2 1,250 mcg (50,000 unit) capsule Take 1 capsule every week by oral route. No Vitamin D2 1,250 mcg (50,000 unit) capsule Take 1 capsule every week by oral route. [facility] amlodipine 10 mg tablet Take 1 tablet every day by oral route. amlodipine 10 mg tablet Take 1 tablet every day by oral route. No 1 Q1D amlodipine 10 mg tablet Take 1 tablet every day by oral route. [facility] amlodipine 10 mg tablet Take 1 tablet every day by oral route as directed for 30 days. amlodipine 10 mg tablet Take 1 tablet every day by oral route as directed for 30 days. No amlodipine 10 mg tablet Take 1 tablet every day by oral route as directed for 30 days. [facility] azithromyci n 250 mg tablet TAKE 2 [...] ORAL ROUTE ONCE DAILY FOR [address] [facility] clonidine HCl 0.1 mg tablet take one tab daily PRN for BP >160/90 clonidine HCl 0.1 mg tablet take one tab daily PRN for BP >160/90 No clonidine HCl 0.1 mg tablet take one tab daily PRN for BP >160/90 [facility] dexamethaso ne sodium phosphate 4 mg/mL injection solution Inject 1 mL by intramuscul ar route. dexamethaso ne sodium phosphate 4 mg/mL injection solution Inject 1 mL by intramuscul ar route. No 1mL dexamethas one sodium phosphate 4 mg/mL injection solution Inject 1 mL by intramuscu lar route. [facility] dexamethaso ne sodium phosphate 4 mg/mL injection syringe Inject 1 mL by intramuscul ar route. dexamethaso ne sodium phosphate 4 mg/mL injection syringe Inject 1 mL by intramuscul ar route. No 1mL dexamethas one sodium phosphate 4 mg/mL injection syringe Inject 1 mL by intramuscu lar route. [facility] epinephrine 0.3 mg/0.3 mL injection, auto-inject or Take 1 auto by injection route as needed. epinephrine 0.3 mg/0.3 mL injection, auto-inject or Take 1 auto by injection route as needed. No 1auto(s ) epinephrin e 0.3 mg/0.3 mL injection, auto-injec tor Take 1 auto by injection route as needed. [facility] FeroSul 325 mg (65 mg [...] capsule every day by oral route. No omeprazole 40 mg capsule,de layed release Take 1 capsule every day by oral route. [facility] paroxetine 30 mg tablet Take 1 tablet every day by oral route as directed for 90 days. paroxetine 30 mg tablet Take 1 tablet every day by oral route as directed for 90 days. No paroxetine 30 mg tablet Take 1 tablet every day by oral route as directed for 90 days. [facility] prednisone 20 mg tablet Take 1 tablet every day by oral route. prednisone 20 mg tablet Take 1 tablet every day by oral route. No 1 Q1D prednisone 20 mg tablet Take 1 tablet every day by oral route. [facility] tizanidine 4 mg tablet Take 1 tablet 3 times a day by oral route. tizanidine 4 mg tablet Take 1 tablet 3 times a day by oral route. No tizanidine 4 mg tablet Take 1 tablet 3 times a day by oral route. [facility] triamcinolo [...] 1 capsule every week by oral route. [facility] omeprazole 40 [...] 1 capsule every day by oral route. [facility] amlodipine 10 mg tablet Take 1 tablet every day by oral route as directed for 30 days. amlodipine 10 mg tablet Take 1 tablet every day by oral route as directed for 30 days. No 1 Q1D amlodipine 10 mg tablet Take 1 tablet every day by oral route as directed for [address] [facility] azithromyci n 250 mg tablet TAKE [...] ORAL ROUTE ONCE DAILY FOR [address] [facility] clonidine HCl 0.1 mg tablet take one tab daily PRN for BP >160/90 clonidine HCl 0.1 mg tablet take one tab daily PRN for BP >160/90 No clonidine HCl 0.1 mg tablet take one tab daily PRN for BP >160/90 [facility] dexamethaso ne sodium phosphate 4 mg/mL injection solution Inject 1 mL by intramuscul ar route. dexamethaso ne sodium phosphate 4 mg/mL injection solution Inject 1 mL by intramuscul ar route. No 1mL dexamethas one sodium phosphate 4 mg/mL injection solution Inject 1 mL by intramuscu lar route. [facility] dexamethaso ne sodium phosphate 4 mg/mL injection syringe Inject 1 mL by intramuscul ar route. dexamethaso ne sodium phosphate 4 mg/mL injection syringe Inject 1 mL by intramuscul ar route. No 1mL dexamethas one sodium phosphate 4 mg/mL injection syringe Inject 1 mL by intramuscu lar route. [facility] epinephrine 0.3 mg/0.3 mL injection, auto-inject or [...] day by oral route. [facility] ketorolac 30 mg/mL (1 mL) injection solution Inject 1 mL by intramuscul ar route. ketorolac 30 mg/mL (1 mL) injection solution Inject 1 mL by intramuscul ar route. No 1mL ketorolac 30 mg/mL (1 mL) injection solution Inject 1 mL by intramuscu lar route. [facility] losartan 50 mg tablet Take 1 tablet every day by oral route. losartan 50 mg tablet Take 1 tablet every day by oral route. No 1 Q1D losartan 50 mg tablet Take 1 tablet every day by oral route. [facility] Macrobid 100 mg [...] day by oral route. [facility] paroxetine 30 mg tablet Take 1 tablet every day by oral route as directed for 90 days. paroxetine 30 mg tablet Take 1 tablet every day by oral route as directed for 90 days. No 1 Q1D paroxetine 30 mg tablet Take 1 tablet every day by oral route as directed for 90 days. [facility] prednisone 20 mg tablet Take 1 tablet every day by oral route. prednisone 20 mg tablet Take 1 tablet every day by oral route. No 1 Q1D prednisone 20 mg tablet Take 1 tablet every day by oral route. [facility] tizanidine 4 mg tablet Take 1 tablet 3 times a day by oral route. tizanidine 4 mg tablet Take 1 tablet 3 times a day by oral route. No tizanidine 4 mg tablet Take 1 tablet 3 times a day by oral route. [facility] triamcinolo ne acetonide 40 mg/mL suspension for injection Take 20 mg by injection route. triamcinolo ne acetonide 40 mg/mL suspension for injection Take 20 mg by injection route. No 20mg triamcinol one acetonide 40 mg/mL suspension for injection Take 20 mg by injection route. [facility] trospium 20 mg tablet Take 1 tablet twice a day by oral route. trospium 20 mg tablet Take 1 tablet twice a day by oral route. No trospium 20 mg tablet Take 1 tablet twice a day by oral route. [facility] venlafaxine ER 150 mg capsule,ext ended release 24 hr Take 1 capsule every day by oral route. venlafaxine ER 150 mg capsule,ext ended release 24 hr Take 1 capsule every day by oral route. No 1capsul e(s) Q1D venlafaxin e ER 150 mg capsule,ex tended release 24 hr Take 1 capsule every day by oral route. [facility] venlafaxine ER 75 mg capsule,ext ended release 24 hr Take 1 capsule every day by oral route. venlafaxine ER 75 mg capsule,ext ended release 24 hr Take 1 capsule every day by oral route. No 1capsul e(s) Q1D venlafaxin e ER 75 mg capsule,ex tended release 24 hr Take 1 capsule every day by oral route. [facility] Vitamin D2 1,250 mcg (50,000 unit) capsule Take 1 capsule every week by oral route. Vitamin D2 1,250 mcg (50,000 unit) capsule Take 1 capsule every week by oral route. No 1capsul e(s) Q1W Vitamin D2 1,250 mcg (50,000 unit) capsule Take 1 capsule every week by oral route. [facility] amlodipine 10 mg tablet Take 1 [...] Inject 1 mL by intramuscu lar route. [facility] Macrobid 100 mg capsule Take 1 capsule every 12 hours by oral route. Macrobid 100 mg capsule Take 1 capsule every 12 hours by oral route. No 1capsul e(s) Q12H Macrobid 100 mg capsule Take 1 capsule every 12 hours by oral route. [facility] omeprazole 40 mg capsule,del ayed release Take 1 capsule every day by oral route. omeprazole 40 mg capsule,del ayed release Take 1 capsule every day by oral route. No 1capsul e(s) Q1D omeprazole 40 mg capsule,de layed release Take 1 capsule every day by oral route. [facility] triamcinolo ne acetonide 40 mg/mL suspension for injection Take 20 mg by injection route. triamcinolo ne acetonide 40 mg/mL suspension for injection Take 20 mg by injection route. No 20mg triamcinol one acetonide 40 mg/mL suspension for injection Take 20 mg by injection route. [facility] trospium 20 mg tablet Take 1 tablet twice a day by oral route. trospium 20 mg tablet Take 1 tablet twice a day by oral route. No 1 BID trospium 20 mg tablet Take 1 tablet twice a day by oral route. [facility] venlafaxine ER 150 mg [...] 1 capsule every week by oral route. [facility] amlodipine 10 mg tablet Take 1 tablet every day by oral route. amlodipine 10 mg tablet Take 1 tablet every day by oral route. No 1 Q1D amlodipine 10 mg tablet Take 1 tablet every day by oral route. [facility] dexamethaso ne sodium phosphate 4 mg/mL injection solution Inject 1 mL by intramuscul ar route. dexamethaso ne sodium phosphate 4 mg/mL injection solution Inject 1 mL by intramuscul ar route. No 1mL dexamethas one sodium phosphate 4 mg/mL injection solution Inject 1 mL by intramuscu lar route. [facility] ketorolac 30 mg/mL (1 [...] capsule every 12 hours by oral route. [facility] omeprazole 40 mg capsule,del ayed release Take 1 capsule every day by oral route. omeprazole 40 mg capsule,del ayed release Take 1 capsule every day by oral route. No 1capsul e(s) Q1D omeprazole 40 mg capsule,de layed release Take 1 capsule every day by oral route. [facility] paroxetine 30 mg tablet Take 1 tablet every day by oral route as directed for 90 days. paroxetine 30 mg tablet Take 1 tablet every day by oral route as directed for 90 days. No 1 Q1D paroxetine 30 mg tablet Take 1 tablet every day by oral route as directed for 90 days. [facility] Vital Signs Vital Name Observation Time Observation Value Comments S ource height 2024-05-05 10:45:00 66 [in_i] [facility] weight 2024-05-05 10:45:00 288.8 [lb_av] [facility] temperature 2024-05-05 10:45:00 97.3 [degF] [facility] bmi 2024-05-05 10:45:00 46.61 kg/m2 [facility] oximetry 2024-05-05 10:45:00 94 % [facility] blood pressure systolic 2024-05-05 10:45:00 142 mm[Hg] [facility] blood pressure diastolic 2024-05-05 10:45:00 78 mm[Hg] [facility] height 2024-03-26 13:00:00 66 [in_i] [facility] weight 2024-03-26 13:00:00 298.8 [lb_av] [facility] temperature 2024-03-26 13:00:00 97.2 [degF] [facility] bmi 2024-03-26 13:00:00 48.22 kg/m2 [facility] oximetry 2024-03-26 13:00:00 93 % [facility] blood pressure systolic 2024-03-26 13:00:00 137 mm[Hg] [facility] blood pressure diastolic 2024-03-26 13:00:00 70 mm[Hg] [facility] height 2024-02-03 08:00:00 66 [in_i] [facility] weight 2024-02-03 08:00:00 286.4 [lb_av] [facility] temperature 2024-02-03 08:00:00 98.1 [degF] [facility] bmi 2024-02-03 08:00:00 46.22 kg/m2 [facility] oximetry 2024-02-03 08:00:00 95 % [facility] blood pressure systolic 2024-02-03 08:00:00 154 mm[Hg] [facility] blood pressure diastolic 2024-02-03 08:00:00 74 mm[Hg] [facility] height 2023-11-14 13:40:00 66 [in_i] [facility] weight 2023-11-14 13:40:00 277.0 [lb_av] [facility] temperature 2023-11-14 13:40:00 97.3 [degF] [facility] bmi 2023-11-14 13:40:00 44.7 kg/m2 [facility] oximetry 2023-11-14 13:40:00 86 % [facility] blood pressure systolic 2023-11-14 13:40:00 146 mm[Hg] [facility] blood pressure diastolic 2023-11-14 13:40:00 88 mm[Hg] [facility] Systolic blood pressure 2023-11-07 22:19:00 140 mm[Hg] [facility] Diastolic blood pressure 2023-11-07 22:19:00 94 mm[Hg] [facility] Heart rate 2023-11-07 22:19:00 79 /min [facility] Body temperature 2023-11-07 22:19:00 37.5 [place] [facility] Respiratory rate 2023-11-07 22:19:00 22 /min [facility] Oxygen saturation in Arterial blood by Pulse oximetry 2023-11-07 22:19:00 90 /min [facility] Body height 2023-11-07 19:22:00 167.6 cm [facility] Body weight 2023-11-07 19:22:00 126.554 kg [facility] BMI 2023-11-07 19:22:00 45.03 kg/m2 [facility] Systolic blood pressure 2023-10-31 13:51:00 126 mm[Hg] [facility] Diastolic blood pressure 2023-10-31 13:51:00 79 mm[Hg] [facility] Heart rate 2023-10-31 13:51:00 89 /min [facility] Body height 2023-10-31 13:51:00 167.6 cm [facility] Body weight 2023-10-31 13:51:00 126.644 kg [facility] BMI 2023-10-31 13:51:00 45.06 kg/m2 [facility] Oxygen saturation in Arterial blood by Pulse oximetry 2023-10-31 13:51:00 89 /min [facility] Systolic blood pressure 2023-10-10 19:03:00 116 mm[Hg] [facility] Diastolic blood pressure 2023-10-10 19:03:00 59 mm[Hg] [facility] Heart rate 2023-10-10 19:03:00 79 /min [facility] Body temperature 2023-10-10 19:03:00 37.11 [place] [facility] Respiratory rate 2023-10-10 19:03:00 19 /min [facility] Body height 2023-10-10 19:03:00 167.6 cm [facility] Body weight 2023-10-10 19:03:00 124.422 kg [facility] BMI 2023-10-10 19:03:00 44.27 kg/m2 [facility] Oxygen saturation in Arterial blood by Pulse oximetry 2023-10-10 19:03:00 92 /min pt was put on 3L [facility] height 2023-10-07 09:00:00 66 [in_i] [facility] weight 2023-10-07 09:00:00 262.0 [lb_av] [facility] temperature 2023-10-07 09:00:00 97.4 [degF] [facility] bmi 2023-10-07 09:00:00 42.28 kg/m2 [facility] oximetry 2023-10-07 09:00:00 92 % [facility] blood pressure systolic 2023-10-07 09:00:00 129 mm[Hg] [facility] blood pressure diastolic 2023-10-07 09:00:00 69 mm[Hg] [facility] BP Diastolic 2022-07-18 00:00:00 90 mm[Hg] [facility] Height 2022-07-18 00:00:00 66 [in_i] [facility] BP Systolic 2022-07-18 00:00:00 144 mm[Hg] [facility] BP Diastolic 2022-06-06 00:00:00 85 mm[Hg] [facility] Height 2022-06-06 00:00:00 66 [in_i] [facility] [...] [facility] BP Systolic 2022-04-15 00:00:00 171 mm[Hg] [facility] Height 2021-12-03 00:00:00 66 [in_i] [facility] Body Temperature 2024-03-23 14:07:00 98.10 degrees Alexy [...] Source CT THORAX WO CONTRAST 2023-12-18 17:03:00 Amos Townsend [facility] CT CHEST PULMONARY ANGIOGRAM 2023-11-07 21:52:[address] [facility] LIPASE 2023-11-07 20:17:00 [facility] TROPONIN I 2023-11-07 20:17:00 [facility] COMP. METABOLIC PANEL (09339) 2023-11-07 20:17[facility]00 [facility] 2023-11-07 20:17:00 [facility] D-D[facility]ER 2023-11-07 [facility]07 20:17:00 [facility] N-TERMINAL PRO-BNP 2023-11-07 20:17:[address] [facility] XR CHEST 1 VW 2023-11-07 20:03:00 [facility] TRANSTHORACIC ECHO (TTE) COMPLETE W/ CONTRAST 2023-11-07 19:18:00 Vinay Vasquez [facility] CAROTID DUPLEX BILATERAL - BY VASCULAR LAB 2023-11-07 18:32[facility] 2023-10-10 20:56:36 Vinay Vasquez [facility] HB ECG ROUTINE & RHYTHM STRIP 2023-10-10 19:06[facility]05 [facility] RHYTHM STRIP 2023-10-10 [facility]:06[facility] 2022-06-06 00:00:00 [facility] SCREENING MAMMOGRAPHY BOTH BREASTS INCLUDING COMPUTER AIDED DETECTION 2022-05-20 00:00:00 [facility] US, breast, bilateral 2022-01-02 00:00:00 [facility] MAMMO, diagnostic, digital, bilateral 2022-01-02 00:00:00 [facility] Plan of Care Planned Activity Planned Date Details Comments Source Diagnostic Test Pending 2022-05-20 00:00:00 Mucor racemosus IgE Ab [Units/volume] in Serum [code = 6182-0] [facility] Encounters Start Date/Time End Date/Time Encounter Type Admission Type Attending Clinicians Care Facility Care Department Encounter ID Source 2024-05-04 14:55:01 Outpatient Sd Murphy [facility] [id number] [facility] 2024-03-26 13:09:00 Outpatient Sd [facility] [id number] [facility] 2024-03-03 12:40:00 Outpatient Sd Murphy [facility] [id number] [facility] 2024-01-29 10:43:01 [facility] [id number] [facility] 2024-01-28 12:32:00 [facility] [id number] [facility] 2023-12-11 08:45:01 Outpatient Sd Murphy [facility] [id number] [facility] 2023-10-07 08:24:02 Outpatient Sd Murphy [facility] [id number] [facility] 2024-06-03 00:00:00 2024-06-03 00:00:00 (TEL) [facility] [id number] [facility] 2024-05-05 00:00:00 2024-05-05 00:00:00 OFFICE VISIT ESTAB PT LEVEL 4 [facility] [id number] [facility] 2024-05-05 00:00:00 2024-05-05 00:00:00 (TEL) [facility] [id number] [facility] 2024-05-04 00:00:00 2024-05-04 00:00:00 (TEL) [facility] [id number] [facility] 2024-04-14 00:00:00 2024-04-14 00:00:00 (TEL) [facility] [id number] [facility] 2024-04-09 00:00:00 2024-04-09 00:00:00 (TEL) [facility] [id number] [facility] 2024-03-31 14:56:10 2024-03-31 14:56:[address] [facility] [id number] Alexy Gonzalez Rick 2024-03-26 00:00:00 2024-03-26 00:00:00 OFFICE VISIT ESTAB PT LEVEL 4 [facility] [id number] [facility] 2024-03-25 00:00:00 2024-03-25 00:00:00 (TEL) [facility] [id number] [facility] [facility] 2024-03-24 13:02:46 2024-03-24 13:02:46 Outpatient SFA SFA [id number] Alexy F Rick 2024-03-23 14:07:35 2024-03-23 14:07:35 Outpatient SFA SFA [id number] Alexy Cabrera 2024-03-23 00:00:00 2024-03-23 00:00:00 Outpatient Visit SFA SFA [id number] Alexy Cabrera 2024-02-05 00:00:00 2024-02-05 00:00:00 (TEL) STLMLC STLMLC [id number] [facility] 2024-02-03 00:00:00 2024-02-03 00:00:00 OFFICE VISIT ESTAB PT LEVEL 4 STLMLC STLMLC [id number] [facility] 2024-01-29 00:00:00 2024-01-29 00:00:00 (TEL) STLMLC STLMLC [id number] [facility] 2024-01-28 00:00:00 2024-01-28 00:00:00 (TEL) STLMLC STLMLC [id number] [facility] 2023-12-18 11:18:07 2023-12-18 23:59:00 Outpatient R [facility]IOLOGY [facility] [id number] [facility] 2023-12-18 11:15:00 2023-12-18 23:59:00 Hospital Encounter Radiology Radiology [facility] 1.2.840.114 350.1.13.10 4.2.7.2.686 [id number] [facility] 2023-11-02 00:00:00 2023-12-06 18:23:07 Patient Secure Vinay Carrera [facility] 1.2.840.114 350.1.13.10 4.2.7.2.686 [id number] [facility] 2023-11-18 00:00:00 2023-11-18 00:00:00 (TEL) STLMLC STLMLC [id number] [facility] 2023-11-14 00:00:00 2023-11-14 00:00:00 (ESTPTWM) Establishe d [id number] 2023-11-11 13:00:00 2023-11-11 13:00:00 Outpatient VINAY FORRESTER [facility] [id number] [facility] 2023-11-08 00:00:00 2023-11-11 11:28:14 Patient Secure Msg Bigg [facility] BU[facility]ING 1.2.840.114 350.1.13.10 4.2.7.2.686 [id number] [facility] 2023-11-07 14:24:00 2023-11-07 18:01:00 Emergency X AIDE KACEY [facility] ERT [id number] [facility] 2023-11-07 14:24:00 2023-11-07 18:01:00 Emergency Kacey Noble [facility] 1.2.840.114 350.1.13.10 4.2.7.2.686 [id number] [facility] 2023-11-07 12:49:29 2023-11-07 14:23:00 [facility] 1.2.840.114 350.1.13.10 4.2.7.2.686 [id number] [facility] 2023-11-07 12:49:18 2023-11-07 14:23:00 [facility] [id number] 2023-11-07 12:49:18 2023-11-07 14:23:00 [facility] 1.2.840.114 350.1.13.10 4.2.7.2.686 [id number] [facility] 2023-10-31 09:45:00 2023-10-31 10:00:00 Sales Planner Visit Lab, Baltazar Alonso Mekhi Senior Jeremy Lab, Baltazar Gavin [facility] 1.2.840.114 350.1.13.10 4.2.7.2.686 [id number] [facility] 2023-10-31 08:40:00 2023-10-31 09:42:47 Outpatient R MEKHI SENIOR HOWARD [facility] [id number] [facility] 2023-10-31 08:40:00 2023-10-31 09:42:47 Office Visit NadeenMekhi Jeremy [facility] 1.2.840.114 350.1.13.10 4.2.7.2.686 [id number] [facility] 2023-10-30 00:00:00 2023-10-30 00:00:00 (TEL) STLC STLC [id number] [facility] 2023-10-28 00:00:00 2023-10-28 00:00:00 (TEL) STLC STLMLC [id number] [facility] 2023-10-27 00:00:00 2023-10-27 00:00:00 (TEL) STLC STLMLC [id number] [facility] 2023-10-21 00:00:00 2023-10-21 00:00:00 (TEL) STLC STLMLC [id number] [facility] 2023-10-17 14:00:00 2023-10-17 14:00:00 Outpatient R VINAY VASQUEZ [facility] [id number] [facility] 2023-10-16 00:00:00 2023-10-16 00:00:00 (TEL) STLC STLMLC [id number] [facility] 2023-10-13 00:00:00 2023-10-13 13:31:31 Telephone Vinay Vasquez [facility] BU[facility] 1.2.840.114 350.1.13.10 4.2.7.2.686 [id number] [facility] 2023-10-13 00:00:00 2023-10-13 10:28:41 Telephone Vinay Vasquez [facility] BU[facility] 1.2.840.114 350.1.13.10 4.2.7.2.686 [id number] [facility] 2023-10-13 00:00:00 2023-10-13 10:10:09 [facility] BU[facility] 1.2.840.114 350.1.13.10 4.2.7.2.686 [id number] [facility] 2023-10-13 00:00:00 2023-10-13 00:00:00 (TEL) STLC STLC [id number] [facility] 2023-10-10 15:15:00 2023-10-10 23:59:00 Hospital Encounter Vinay Vasquez [facility] 1.2.840.114 350.1.13.10 4.2.7.2.686 [id number] [facility] 2023-10-10 13:40:00 2023-10-10 15:09:32 Office Visit Vinay Vasquez [facility] 1.2.840.114 350.1.13.10 4.2.7.2.686 [id number] [facility] 2023-10-10 13:40:00 2023-10-10 15:09:32 Outpatient R SHIVA VASQUEZARPANRAZA [facility] [id number] [facility] 2023-10-10 14:45:00 2023-10-10 15:00:00 Sales Planner Visit 2, Adc Lab Vinay Vasquez [facility] BUILDING 1.2.840.114 350.1.13.10 4.2.7.2.686 [id number] [facility] 2023-10-09 00:00:00 2023-10-10 11:03:41 Telephone Mekhi Senior Jeremy [facility] BUILDING 1.2.840.114 350.1.13.10 4.2.7.2.686 [id number] [facility] 2023-10-07 00:00:00 2023-10-07 00:00:00 OFFICE VISIT NEW PT LEVEL 4 STLMLC STLMLC [id number] [facility] 2023-03-11 00:00:00 2023-03-11 00:00:00 Outpatient GC_LEH_Le_D PRIV PRIV [id number] [facility] 2023-03-06 00:00:00 2023-03-06 00:00:00 Outpatient GC_LEH_Le_D PRIV PRIV [id number] [facility] 2023-01-22 00:00:00 2023-01-22 00:00:00 Outpatient GC_LEH_Le_D PRIV PRIV [id number] [facility] 2023-01-17 00:00:00 2023-01-17 00:00:00 Outpatient GC_LEH_Le_D PRIV PRIV [id number] [facility] 2023-01-16 00:00:00 2023-01-16 00:00:00 Outpatient GC_LEH_Le_D PRIV PRIV [id number] [facility] 2022-10-17 00:00:00 2022-10-17 00:00:00 Outpatient GC_LEH_Le_D PRIV PRIV [id number] [facility] 2022-10-07 00:00:00 2022-10-07 00:00:00 Outpatient GC_LEH_Le_D PRIV PRIV [id number] [facility] 2022-09-03 00:00:00 2022-09-03 00:00:00 Outpatient GC_LEH_Le_D PRIV PRIV [id number] [facility] 2022-08-09 00:00:00 2022-08-09 00:00:00 Outpatient GC_LEH_Le_D PRIV PRIV [id number] [facility] 2022-08-09 00:00:00 2022-08-09 00:00:00 Outpatient GC_LEH_Le_D PRIV PRIV [id number] [facility] 2022-07-18 00:00:00 2022-07-18 00:00:00 Demario Mckenna, COTTAGE MASTER: [address] [place] [address] , Ph. [facility] - GC_LEH_[place] Office* [id number] [facility] 2022-07-09 00:00:00 2022-07-09 00:00:00 Outpatient GC_LEH_Le_D PRIV PRIV [id number] [facility] 2022-06-10 00:00:00 2022-06-10 00:00:00 Outpatient GC_LEH_Le_D PRIV PRIV [id number] [facility] 2022-06-06 00:00:00 2022-06-06 00:00:00 Outpatient GC_LEH_Le_D PRIV PRIV [id number] [facility] 2022-06-06 00:00:00 2022-06-06 00:00:00 Demario Mckenna, COTTAGE MASTER: [address] [place] [address] , Ph. [facility] - [place] Office* [id number] [facility] 2022-06-02 00:00:00 2022-06-02 00:00:00 Outpatient GC_LEH_Le_D PRIV PRIV [id number] [facility] 2022-05-20 00:00:00 2022-05-20 00:00:00 Outpatient GC_LEH_Le_D PRIV PRIV [id number] [facility] 2022-05-20 00:00:00 2022-05-20 00:00:00 Outpatient GC_LEH_Le_D PRIV PRIV [id number] [facility] 2022-05-20 00:00:00 2022-05-20 00:00:00 Shawn Sinclair MD: [address] [place] [address] , Ph. [facility] - GC_LEH[place] Office [id number] [facility] 2022-05-14 00:00:00 2022-05-14 00:00:00 Demario Mckenna, COTTAGE MASTER: [address] [place] [address] , Ph. [facility] - [place] Office* [id number] [facility] 2022-04-15 00:00:00 2022-04-15 00:00:00 Demario Mckenna, COTTAGE MASTER: [address] [place] [address] , Ph. [facility] [id number] [facility] 2022-03-22 00:00:00 2022-03-22 00:00:00 Outpatient GC_LEH_Le_D PRIV PRIV [id number] [facility] 2022-03-22 00:00:00 2022-03-22 00:00:00 Outpatient GC_LEH_Le_D PRIV PRIV [id number] [facility] 2022-01-09 00:00:00 2022-01-09 00:00:00 Outpatient GC_LEH_Le_D PRIV PRIV [id number] [facility] 2022-01-02 00:00:00 2022-01-02 00:00:00 Outpatient GC_LEH_Le_D PRIV PRIV [id number] [facility] 2022-01-02 00:00:00 2022-01-02 00:00:00 Demario Mckenna, COTTAGE MASTER: [address] [place] [address] , Ph. [facility] - [place] Office* [id number] [facility] 2021-12-06 00:00:00 2021-12-06 00:00:00 Outpatient GC_LEH_Le_D PRIV PRIV [id number] [facility] 2021-12-06 00:00:00 2021-12-06 00:00:00 Demario Mckenna, COTTAGE MASTER: [address] [place] [address] , Ph. [facility] - [place] Office* [id number] [facility] 2021-12-04 00:00:00 2021-12-04 00:00:00 Outpatient GC_LEH_Le_D PRIV PRIV [id number] [facility] 2021-12-03 00:00:00 2021-12-03 00:00:00 Outpatient GC_LEH_Le_D PRIV PRIV [id number] [facility] 2021-12-03 00:00:00 2021-12-03 00:00:00 Demario Mckenna, COTTAGE MASTER: [address] [place] [address] , Ph. [facility] - [place] Office* [id number] [facility] 2021-11-29 00:00:00 2021-11-29 00:00:00 Outpatient GC_LEH_Le_D [facility] [id number] [facility] Results Test Description Test Time Test Comments [...] adjacent to left lobe of the liver. [facility] [id number] 22:26:36CT SCAN OF THE CHEST WITH CONTRAST [...] acute abnormalities. Degenerativechange involving the spine is present.[facility] [id number] 21:24:07* Test Item Value Reference Range Interpretation Comme [facility] TROPONIN I (test code = 4872837435) 0.008 ng/mL <=0.034 LIDA (test code = [...] of biotin. Lab Interpretation (test code = 14397-1) Normal [facility] CenterN-TERMINAL SMT-[id number] 21:21:45* Test Item Value Reference Range Interpretation Comme nts NT-proBNP (test code = 56071-5) 258 pg/mL <=125 LIDA (test code = LIDA) Result Indeterminate-Consid er causes of NT-proBNP elevation other than Heart failure such as acute coronary syndrome, pulmonary embolism, pulmonary hypertension, sepsis, stroke, and renal dysfunction. Lab Interpretation (test code = 73385-8) Abnormal [facility] CenterCOMP. METABOLIC PANEL (83943)2023-11-07 21:13:24* Test Item Value Reference Range Interpretation Comme nts NA (test code = 1961928965) 132 mmol/L 135-145 L K (test code = 9612083176) 3.7 mmol/L 3.5-5.0 CL (test code = 6878558255) 94 mmol/L 98-108 L CO2 TOTAL (test code = 0185926217) 31 mmol/L 23-31 AGAP (test code = 0301781890) 7 2-16 BUN (test code = 9000317823) 10 mg/dL 7-23 GLUCOSE (test code = 3222410381) 120 mg/dL 70-110 H CREATININE (test code = 2160-0) 0.72 mg/dL 0.50-1.04 TOTAL BILI (test code = 6224270280) 0.9 mg/dL 0.1-1.1 CALCIUM (test code = 9239738862) 8.4 mg/dL 8.6-10.6 L T PROTEIN (test code = 7455267785) 8.4 g/dL 6.3-8.2 H ALBUMIN (test code = 8453887114) 4.0 g/dL 3.5-5.0 ALK PHOS (test code = 4028720259) 114 U/L 34-122 ALTv (test code = 1742-6) 47 U/L 5-35 H AST(SGOT) (test code = 5114200676) 54 U/L 13-40 H eGFR (test code = 45881-6) 100.7 mL/min/1.73m2 CKD-EPI eGFR (2020). Assuming creatinine has been stable day-to-day for at least three months, the eGFR indicates Category G1 (>= 90 mL/min/1.73 m2) Lab Interpretation (test code = 37193-9) Abnormal [facility] CenterLIPASE, [id number] 21:13:03* Test Item Value Reference Range Interpretation Comme nts LIPASE (test code = 8237342355) 31 U/L 0-220 Lab Interpretation (test cod e = 65981-8) Normal [facility] CenterD-Kcpxi4663-96-84 21:10:24* Test Item Value Reference Range Interpretation Comments D-DIMER (test code = 5084653485) 2.29 See_Comment H [Automated message] The system [...] a diagnosis. Lab Interpretation (test code = 17362-4) Abnormal [facility] WITH [id number] 20:55:53* Test Item Value Reference Range Interpretation [...] g/dL 31.6-35.1 L RDW-SD (test code = 83282-8) 49.7 fL 39.0-49.9 RDW-CV (test code = 788-0) 14.8 % 12.0-15.5 PLT (test code = 777-3) 254 166-358 MPV (test code = 45385-7) 9.7 fL 9.5-12.9 NRBC/100 WBC (test code = 5627500131) 0.0 0.0-10.0 NRBC x10^3 (test code = 0025763851) See_Comment [Automated messa ge] The system which generated this result transmitted reference range: 10*3/?L. The reference range was not used to interpret this result as normal/abnormal. GRAN MAT (NEUT) % (test code = 770-8) 74.6 % IMM GRAN % (test code = 7096515667) 0.60 % LYMPH % (test code = 736-9) 15.1 % MONO % (test code = 5905-5) 8.3 % EOS % (test code = 713-8) 1.0 % BASO % (test code = 706-2) 0.4 % GRAN MAT x10^3(ANC) (test code = 6879620299) 7.35 10*3/uL 1.88-7.09 H IMM GRAN x10^3 (test code = 9827813664) 0.06 10*3/uL 0.00-0.06 LYMPH x10^3 (test code = 731-0) 1.49 10*3/uL 1.32-3.29 MONO x10^3 (test code = 742-7) 0.82 10*3/uL 0.33-0.92 EOS x10^3 (test code = 711-2) 0.10 10*3/uL 0.03-0.39 BASO x10^3 (test code = 704-7) 0.04 10*3/uL 0.01-0.07 Lab Interpretation (test code = 39724-1) Abnormal [facility] CenterXR [facility]ST 1 [id number] 20:28:03EXAM: XR CHEST 1 11/07/2023 2:53 PM [...] changes. Included osseous structures show no acute abnormality.[facility] CenterXR CHEST 2 [id number] 22:28:53EXAM: XR CHEST 2 10/10/2023 3:49 PM [...] soft tissues: Mild degenerative changes of thespine. Osteopenia.[facility] [Mass/volume] in Serum or [id number] 00:00:00* Test Item Value Reference Range Interpretation Comme nts estradiol (test code = estradiol) 15.81 pg/mL see below estriol, unconjugated (test code = estriol, unconjugated) <0.1 see below estrone (E1), serum (test co de = estrone (E1), serum) <5.0 see below [facility] MedicalThyroglobulin Ab [Units/volume] in Serum or [id number] 00:00:00* Test Item Value Reference Range Interpretation Comme nts anti-thyroglobulin (test cod e = anti-thyroglobulin) <20 <40 [facility]2023-03-07 00:00:00* Test Item Value Reference Range Interpretation [...] (test code = E-GFR) 88 mL/min See_Comment [Automated [employer]] The system which generated this result transmitted reference range: >or=60. The reference range was not used to interpret this result as normal/abnormal. E-GFR, (test code = E-GFR, ) 102 mL/min See_Comment [Nitronex] The system which generated this result transmitted [...] <30.0 [facility] Medical[facility]rate [Mass/volume] in Serum or Ulwwsj7353-39-61 00:00:00* Test Item Value Reference Range Interpretation Comme nts uric acid (test code = uric acid) 3.3 mg/dL 2.5-7.9 [facility] MedicalThyroperoxidase Ab [Units/volume] in Serum or [id number] 00:00:00* Test Item Value Reference Range Interpretation Comme nts anti-tpo Ab (test code = anti-tpo Ab) <10 <35 [facility] MedicalCancer Ag 125 [Units/volume] in Serum or Yudrvm4045-27-29 00:00:00 * Test Item Value Reference Range Interpretation Comme nts CA-125 (test code = CA-125) 7.9 U/mL 6.4-38.1 [facility] MedicalMagnesium [Mass/volume] in Serum or [id number] 00:00:00* Test Item Value Reference Range Interpretation Comme nts magnesium (test code = magnesium) 1.9 mg/dL 1.6-2.6 [facility] Medicalthyroid panel, oljyp4441-01-85 00:00:00* Test Item Value Reference Range Interpretation Comme nts TSH (test code = TSH) 1.020 uIU/mL 0.178-4.530 free T4 (test code = free T4) 1.04 NG/dL 0.80-1.73 total T4 (test code = total T4) 6.8 ug/dL 4.9-11.9 T-uptake (test code = T-uptake) 1.0 tbi 0.8-1.3 [facility] MedicalFolate+Cyanocobalamin [Interpretation] in Serum or [id number] 00:00:00* Test Item Value Reference Range Interpretation Comme nts folate (test code = folate) 9.48 NG/mL 2.00-20.00 vitamin B12 (test code = vit guerrier B12) 239.0 pg/mL 200.0-900.0 [facility] MedicalProlactin [Mass/volume] in Serum or Oqnkwc8407-44-81 00:00:00* Test Item Value Reference Range Interpretation Comme nts prolactin (test code = prolactin) 14.6 NG/mL 4.8-23.3 [facility] CenterParathyrin.intact [Mass/volume] in Serum or Rlimkn2094-86-95 00:00:00* Test Item Value Reference Range Interpretation Comme nts PTH (test code = PTH) 52.70 pg/mL 15.00-65.00 [facility] MedicalProgesterone Free [Mass/volume] in Serum or Ukhooz1203-95-89 00:00:00* Test Item Value Reference Range Interpretation Comme nts progesterone (test code = progesterone) 0.16 NG/mL [facility] MedicalIron and Iron binding capacity panel - Serum or Ggiyat2889-60-71 00:00:00* Test Item Value Reference Range Interpretation Comme nts iron (test code = iron) 26 ug/dL 37-145 L UIBC (test code = UIBC) 427 ug/dL 112-347 H TIBC (test code = TIBC) 453.0 [facility] Awlmmnd07-Lmutknovxuwicl D3+25-Hydroxyvitamin D2 [Mass/volume] in Serum or [id number] 00:00:00* Test Item Value Reference Range Interpretation Comme nts vitamin D III (test code = v itamin D III) 26.6 NG/mL 32.0-100.0 L [facility] MedicalDrugs identified in Urine by Screen [id number] 00:00:00* Test Item Value Reference Range Interpretation Comments venlafaxine ur CMP (test cod e = venlafaxine ur CMP) >91629 >=5 paroxetine ur CMP (test code = paroxetine ur CMP) >1070 >=50 buspirone ur CMP (test code = buspirone ur CMP) 898 NG/mL >=25 tizanidine ur CMP (test code = tizanidine ur CMP) <5 >=5 A gabapentin ur CMP (test code = gabapentin ur CMP) >500 >=5 A hydrocodone ur CMP (test cod e = hydrocodone ur CMP) 33623 NG/mL >=100 A biodetect (test code = [...] Urine by Confirmatory method (test code = 08621-5) >5000 >=5 O-desmethylvenlafaxine [Mass/volume] in Urine by Confirmatory method (test code = 92165-2) >6000 >=50 ssri profile ur ql cfm (test code = ssri profile ur ql cfm) >=50 >=50 PARoxetine [Mass/volume] in Urine by Confirmatory method (test code = 97187-4) 577 NG/mL >=50 paroxetine metabolite II ur (test code = paroxetine metabolite II ur) >500 >=50 Buprenorphine [Presence] in Urine by Confirmatory method (test code = 60663-1) <1 >=1 Amphetamines [Presence] in U rine by Confirmatory method (test code = 79180-6) <100 >=100 Phentermine [Mass/volume] in Urine by Confirmatory method (test code = 99772-2) <250 >=250 Amphetamine [Mass/volume] in Urine by Confirmatory method (test code = 97347-7) <250 >=250 methamphet D+L ur cfm-mcnc ( test code = methamphet D+L ur cfm-mcnc) <250 >=250 Methylenedioxyamphetamine [Mass/volume] in Urine by Confirmatory method (test code = 71577-2) <100 >=100 Methylenedioxymethamphetamin e [Mass/volume] in Urine by Confirmatory method (test code = 73432-5) <100 >=100 Methylenedioxyethylamphetami ne [Mass/volume] in Urine by Confirmatory method (test code = 46326-2) <100 >=100 Benzodiazepines [Presence] i n Urine by Confirmatory method (test code = 62775-8) <50 >=50 Alpha hydroxyalprazolam [Mass/volume] in Urine by Confirmatory method (test code = 51335-7) <50 >=50 Nordiazepam [Mass/volume] in Urine by Confirmatory method (test code = 92913-8) <50 >=50 LORazepam [Mass/volume] in U rine by Confirmatory method (test code = 54913-4) <50 >=50 Oxazepam [Mass/volume] in Ur ine by Confirmatory method (test code = 70191-9) <50 >=50 Temazepam [Mass/volume] in U rine by Confirmatory method (test code = 45731-0) <50 >=50 7-Aminoclonazepam [Mass/volu me] in Urine by Confirmatory method (test code = 71113-6) <50 >=50 Hydroxyethylflurazepam [Mass/volume] in Urine by Confirmatory method (test code = 66919-0) <50 >=50 ALPRAZolam [Mass/volume] in Urine by Confirmatory method (test code = 29426-8) <50 >=50 gabapentinpregabalin ur ql c fm (test code = gabapentinpregabalin ur ql cfm) >=5 >=5 Gabapentin [Mass/volume] in Urine by Confirmatory method (test code = 66736-9) >500 >=5 Cocaine [Presence] in Urine by Confirmatory method (test code = 73363-1) <50 >=50 Opiates [Presence] in Urine by Confirmatory method (test code = 02354-5) >=100 >=100 Dihydrocodeine [Mass/volume] in Urine by Confirmatory method (test code = 75958-3) 1950 NG/mL >=100 HYDROcodone [Mass/volume] in Urine by Confirmatory method (test code = 09212-2) 5200 NG/mL >=100 Norhydrocodone [Mass/volume] in Urine by Confirmatory method (test code = 27065-4) 4520 NG/mL >=100 Codeine [Mass/volume] in Uri ne by Confirmatory method (test code = 30961-5) <100 >=100 Morphine [Mass/volume] in Ur ine by Confirmatory method (test code = 88827-3) <100 >=100 HYDROmorphone [Mass/volume] in Urine by Confirmatory method (test code = 61843-3) <100 >=100 oxyCODONE [Mass/volume] in U rine by Confirmatory method (test code = 44764-2) <100 >=100 oxyMORphone [Mass/volume] in Urine by Confirmatory method (test code = 75524-2) <100 >=100 Norcodeine [Mass/volume] in Urine (test code = 15762-0) <100 >=100 Noroxycodone [Mass/volume] i n Urine by Confirmatory method (test code = 26118-8) <100 >=100 6-Monoacetylmorphine (6-JENNIFER) [Presence] in Urine by Confirmatory method (test code = 44985-2) <10 >=10 Methadone [Presence] in Urin e by Confirmatory method (test code = 46088-2) <200 >=200 Meperidine [Presence] in Uri ne by Confirmatory method (test code = 27183-9) <100 >=100 fentaNYL+Norfentanyl [Presen ce] in Urine by Confirmatory method (test code = 16271-3) <5 >=5 Carisoprodol+Meprobamate [Pr esence] in Urine by Screen method (test code = 65773-8) <200 >=200 traMADol [Presence] in Urine by Confirmatory method (test code = 68394-0) <100 >=100 pH of Urine (test code = 2756-5) 7.09 4.5-9.0 Creatinine [Mass/volume] in Urine (test code = 2161-8) 145.1 mg/dL 20-370 Ethanol [Presence] in Urine by Screen method (test code = 84209-5) <10 >=10 tizanidine ur ql cfm (test c ode = tizanidine ur ql cfm) <5 >=5 Barbiturates [Presence] in U rine by Screen method (test code = 84791-5) <200 >=200 busprione ur ql cfm (test co de = busprione ur ql cfm) >=25 >=25 6-hydroxybuspirone ur cfm-mc nc (test code = 6-hydroxybuspirone ur cfm-mcnc) 898 NG/mL >=25 [facility]yroglobulin Ab [Units/volume] in Serum or Uadouz0278-84-77 00:00:00* Test Item Value Reference Range Interpretation Comme nts anti-thyroglobulin (test cod e = anti-thyroglobulin) <20 <40 [facility]yroperoxidase Ab [Units/volume] in Serum or [id number] 00:00:00* Test Item Value Reference Range Interpretation Comme nts anti-tpo Ab (test code = anti-tpo Ab) <10 <35 [facility] [Mass/volume] in Serum or [id number] 00:00:00* Test Item Value Reference Range Interpretation Comme nts uric acid (test code = uric acid) 3.7 mg/dL 2.5-7.9 [facility] MedicalEstrogen [Mass/volume] in Serum or [id number] 00:00:00* Test Item Value Reference Range Interpretation Comme nts estradiol (test code = estradiol) <5.00 see below estriol, unconjugated (test code = estriol, unconjugated) <0.1 see below estrone (E1), serum (test co de = estrone (E1), serum) 8.2 pg/mL see below [facility]:00:00* Test Item Value Reference Range Interpretation [...] <30.0 [facility] MedicalProlactin [Mass/volume] in Serum or Sournl6789-84-57 00:00:00* Test Item Value Reference Range Interpretation Comme nts prolactin (test code = prolactin) 8.9 NG/mL 4.8-23.3 [facility] MedicalMagnesium [Mass/volume] in Serum or Igajeq8890-71-29 00:00:00* Test Item Value Reference Range Interpretation Comme nts magnesium (test code = magnesium) 2.1 mg/dL 1.6-2.6 [facility] MedicalParathyrin.intact [Mass/volume] in Serum or Ajkhbj1680-14-72 00:00:00* Test Item Value Reference Range Interpretation Comme nts PTH (test code = PTH) 59.60 pg/mL 15.00-65.00 [facility] MedicalFolate+Cyanocobalamin [Interpretation] in Serum or Vjbav6441-89-38 00:00:00* Test Item Value Reference Range Interpretation Comme nts folate (test code = folate) 11.50 NG/mL 2.00-20.00 vitamin B12 (test code = vit guerrier B12) 375.0 pg/mL 200.0-900.0 [facility], [id number] 00:00:00* Test Item Value Reference Range Interpretation Comme nts TSH (test code = TSH) 0.484 uIU/mL 0.178-4.530 free T4 (test code = free T4) 0.98 NG/dL 0.80-1.73 total T4 (test code = total T4) 7.1 ug/dL 4.9-11.9 T-uptake (test code = T-uptake) 1.1 tbi 0.8-1.3 [facility] MedicalCancer Ag 125 [Units/volume] in Serum or [id number] 00:00:00 * Test Item Value Reference Range Interpretation Comme nts CA-125 (test code = CA-125) 8.2 U/mL 6.4-38.1 [facility] MedicalProgesterone Free [Mass/volume] in Serum or [id number] 00:00:00* Test Item Value Reference Range Interpretation Comme nts progesterone (test code = progesterone) 0.18 NG/mL [facility] MedicalIron and Iron binding capacity panel - Serum or Vuxhsu7834-63-27 00:00:00* Test Item Value Reference Range Interpretation Comme nts iron (test code = iron) 20 ug/dL 37-145 L UIBC (test code = UIBC) 446 ug/dL 112-347 H TIBC (test code = TIBC) 466.0 [facility] Haceojp78-Ywvdmapujohhsh D3+25-Hydroxyvitamin D2 [Mass/volume] in Serum or [id number] 00:00:00* Test Item Value Reference Range Interpretation Comme nts vitamin D (test code = vitamin D) 23.7 NG/mL 32.0-100.0 L [facility] MedicalUrinalysis macro (dipstick) panel - Iynqi4472-82-91 14:55:00* Test Item Value Reference Range Interpretation Comme nts Leukocytes (test code = Leukocytes) Trace Nitrite (test code = Nitrite) negative Urobilinogen (test code = Urobilinogen) 1+ Protein (test code = Protein) Trace pH (test code = pH) 6.0 Blood (test code = Blood) Negative Specific [place] (test code = Specific [place]) 1.015 Ketone (test code = Ketone) Trace Bilirubin (test code = Bilirubin) Small Glucose (test code = Glucose) 250 Appearance (test code = Appearance) Slightly Cloudy Color (test code = Color) [place] [facility] MedicalDrugs identified in Urine by Screen ijtgyw8810-43-14 00:00:00* Test Item Value Reference Range Interpretation Comme nts gabapentin ur CMP (test code = gabapentin ur CMP) >500 See_Comment A [Autom ated message] The system which generated this result transmitted reference range: >=5. The reference range was not used to interpret this result as normal/abnormal. hydrocodone ur CMP (test code = hydrocodone ur CMP) >77073 See_Comment A [Auto mated message] The system [...] Urine by Confirmatory method (test code = 01339-5) <1 See_Comment [Automated message] The system which generated this result transmitted reference range: >=1. The reference range was not used to interpret this result as normal/abnormal. Amphetamines [Presence] in Urine by Confirmatory method (test code = 65969-7) <100 See_Comment [Automated message] The system which generated this result transmitted reference range: >=100. The reference range was not used to interpret this result as normal/abnormal. Benzodiazepines [Presence] in Urine by Confirmatory method (test code = 04716-3) <50 See_Comment [Automated message] The system which [...] Urine by Confirmatory method (test code = 53202-3) >500 See_Comment [Automated message] The system which generated this result transmitted reference range: >=5. The reference range was not used to interpret this result as normal/abnormal. Cocaine [Presence] in Urine by Confirmatory method (test code = 46642-0) <50 See_Comment [Automated message] The system which generated this result transmitted reference range: >=50. The reference range was not used to interpret this result as normal/abnormal. Opiates [Presence] in Urine by Confirmatory method (test code = 68901-8) >=100 See_Comment [Automated message] The system which generated this result transmitted reference range: >=100. The reference range was not used to interpret this result as normal/abnormal. Dihydrocodeine [Mass/volume] in Urine by Confirmatory method (test code = 53387-7) 2320 NG/mL See_Comment [Automated message] The system which generated this result transmitted reference range: >=100. The reference range was not used to interpret this result as normal/abnormal. HYDROcodone [Mass/volume] in Urine by Confirmatory method (test code = 73707-2) 3760 NG/mL See_Comment [Automated message] The system which generated this result transmitted reference range: >=100. The reference range was not used to interpret this result as normal/abnormal. Norhydrocodone [Mass/volume] in Urine by Confirmatory method (test code = 37576-0) >5000 See_Comment [Automated message] The system which generated this result transmitted reference range: >=100. The reference range was not used to interpret this result as normal/abnormal. 6-Monoacetylmorphine (6-JENNIFER) [Presence] in Urine by Confirmatory method (test code = 32200-1) <10 See_Comment [Automated message] The system which generated this result transmitted reference range: >=10. The reference range was not used to interpret this result as normal/abnormal. Methadone [Presence] in Urine by Confirmatory method (test code = 03069-4) <200 See_Comment [Automated message] The system which generated this result transmitted reference range: >=200. The reference range was not used to interpret this result as normal/abnormal. Meperidine [Presence] in Urine by Confirmatory method (test code = 02880-7) <100 See_Comment [Automated message] The system which generated this result transmitted reference range: >=100. The reference range was not used to interpret this result as normal/abnormal. fentaNYL+Norfentanyl [Presence] in Urine by Confirmatory method (test code = 75610-2) <5 See_Comment [Automated message] The system which generated this result transmitted reference range: >=5. The reference range was not used to interpret this result as normal/abnormal. Carisoprodol+Meprobamate [Presence] in Urine by Screen method (test code = 09214-0) <200 See_Comment [Automated message] The system which generated this result transmitted reference range: >=200. The reference range was not used to interpret this result as normal/abnormal. traMADol [Presence] in Urine by Confirmatory method (test code = 89384-1) <100 See_Comment [Automated message] The system which generated this result transmitted reference range: >=100. The reference range was not used to interpret this result as normal/abnormal. pH of Urine (test code = 2756-5) 7.49 4.5-9.0 Creatinine [Mass/volume] in Urine (test code = 2161-8) 161.1 mg/dL 20-370 Ethanol [Presence] in Urine by Screen method (test code = 40641-3) <10 See_Comment [Automated message] The system which generated this result transmitted reference range: >=10. The reference range was not used to interpret this result as normal/abnormal. Barbiturates [Presence] in Urine by Screen method (test code = 56210-9) <200 See_Comment [Automated message] The system which generated this result transmitted reference range: >=200. The reference range was not used to interpret this result as normal/abnormal. [facility] Medical Notes Date/Time Note Provider Source Alexy Rodriguez [facility]2024-08-27 11:28:23 Patient was advised to keep today's appointment but she is unable to make it. She will check with her daughter's schedule and call back to reschedule. Isabel Nelson [facility] / NHRMCOecuph6137-93-06 14:59:28 Patient notified of results. They verbalized understanding of results/recommendations via teach back. No further questions or concerns at this time. T Isabel Nelson [facility] / NHRMCDicwpr1095-56-54 17:59:01 Pt given printed and verbal discharge [...] leaving ambulatory , in no apparent distress, T Blanca Padilla [place] 247854-08-23 14:20:55 Patient to ED for shortness of breath, chest pain, and fever x [address] Vasquez's office and O2 sats were in the 70's and she was sent to the ED. Reports she has been sick for a month and uses oxygen at night but not usually during the day. Also been having problems with her CHF. T [place] 247854-08-16 09:45:00 Images from the original note were not included. Venipuncture collection performed by clean technique on the right hand. Total of 1 attempts were made. Slight pressure and a bandage/dressing were applied to the site(s). The patient experienced no complications. The following specimens were processed according to instructions and sent to [facility] laboratories per lab order on 10/31/2023 : LT BLUE SST 1 RED LAV PPT DK GREEN (LiHep) DK GREEN (SodH) JAIMES DK BLUE (K2) DK BLUE (S) ACD Blood Culture NIPT/NTD T [place] 247854-07-29 13:25:47 Images from the original note were not included. Notified patient per Dr Vasquez: Vinay Vasquez MD P Cardiology Nurse BNP is slightly elevated. Chest x-ray showed mild congestion/COPD. Increase Lasix to 40 mg twice daily. Add spironolactone 25 mg daily. Please order BMP and BNP in 2 weeks. Note Patient verbal understanding. RX sent to [facility] in [place]. Lab orders placed. [place] 618754-07-29 10:28:25 Duplicate encounter. [facility] 10:27:39 Images from the original note were not included. Attempted to contact patient to discuss test results, no answer I left a voice message to call back. Vinay Vasquez MD P Cardiology Nurse BNP is slightly elevated. Chest x-ray showed mild congestion/COPD. Increase Lasix to 40 mg twice daily. Add spironolactone 25 mg daily. Please order BMP and BNP in 2 weeks. [place] 618754-07-29 10:23:34 Images from the original note were not included. Attempted to contact patient to discuss test results, no answer I left a voice message to call back. Vinay Vasquez MD P Cardiology Nurse BNP is slightly elevated. Chest x-ray showed mild congestion/COPD. Increase Lasix to 40 mg twice daily. Add spironolactone 25 mg daily. Please order BMP and BNP in 2 weeks. [place] 618754-07-29 10:09:21 Medical records received via fax from Dr Hansel Fitzpatrick and placed in Dr Vasquez's folder to be reviewed. D[facility]gn[facility]ji3424-37-89 08:46:57 Carlos De La Cruz is a 53 year old female calling to discuss results of chest x -ray . [phone] (home) Elba [facility] HospitalDdknjy8557-53-45 14:45:00 Images from the original note were not included. Venipuncture collection performed by clean technique on the right hand. Total of 1 attempts were made. Slight pressure and a bandage/dressing were applied to the site(s). The patient experienced no complications. The following specimens were processed according to instructions and sent to [facility] laboratories per lab order on 10/10/2023: LT BLUE SST 1 RED LAV 1 PPT DK GREEN (LiHep) DK GREEN (SodH) JAIMES DK BLUE (K2) DK BLUE (S) ACD Blood Culture NIPT/NTD [facility]
[2024-06-12] MEDS ORDERED: LEVALBUTEROL 1.25 MG/3 ML NEB ONE ×2 (21:42→22:59)
[2024-06-12] MEDS ORDERED: IPRATROPIUM BROM 0.5MG/2.5ML ONE (21:42)
[2024-06-12] MEDS ORDERED: METHYLPREDNISOLONE 125 MG INJ ONE (21:51)
[2024-06-12] MEDS ORDERED: FAMOTIDINE 20 MG/2 ML VIAL IV ONE (21:51)
[2024-06-12] MEDS ORDERED: levoFLOXacin 750 MG TAB ONE (21:51)
[2024-06-12] MEDS ORDERED: NA CHLORIDE 0.9% 500 ML ONE (21:52)
[2024-06-12 21:57] LABS: Absolute Basophils 0.1 K/uL (0-0.5); Absolute Eosinophils 0.1 K/uL (0-0.5); Absolute Lymphocytes (CBC) 1.3 K/uL (0.7-4.9); Absolute Monocytes 0.7 K/uL (0.1-1.3); Absolute Neutrophil 7.8 K/uL (1.8-8.0); Basophils % 0.8 % (0-1.3); Eosinophils % 0.7 % (0-4.4); Hematocrit 46.8 % (36.0-45.0); Hemoglobin 14.6 g/dL (12.0-15.0); Lymphocytes % 12.7 % (15.3-44.8); MCH 26.8 pg (27.0-35.0); MCHC 31.3 g/dL (32.0-36.0); MCV 85.7 fL (80-100); MPV 7.3 fL (7.6-11.3); Monocytes % 6.9 % (3.3-12.3); Neutrophils % 78.9 % (41.7-73.7); Nucleated Red Blood Cells % 0.2 % (0-0); Platelets 296 thou/uL (152-406); RBC Red Blood Cell Count 5.46 M/uL (3.86-4.86); Red Cell Distribution Width 17.7 % (12.1-15.2)
[2024-06-12 21:58] LABS: PT Prothrombin Time 11.5 SECONDS (10-13.0); Protime INR 1.01
[2024-06-12 22:08] LABS: ALT/SGPT 20 U/L (13-56); AST/SGOT 17 U/L (15-37); Albumin 2.6 g/dL (3.4-5.0); Albumin/Globulin Ratio 0.5 (1.1-1.8); Alkaline Phosphatase 102 U/L (45-117); Anion Gap 7.2 mEq/L (5.0-15.0); BUN Blood Urea Nitrogen 8 mg/dL (7-18); Bicarbonate 33 mEq/L (21-32); Bilirubin Total 0.3 mg/dL (0.2-1.0); Glomerular Filtration Rate 88 ml/min (=/>90); Glucose Level 165 mg/dL (74-106); Lipase 14 U/L (13-75); Magnesium 2.4 mg/dL (1.6-2.4); NT PRO-BNP 238 pg/mL (<125); Potassium 4.2 mEq/L (3.5-5.1); Protein, Total 7.6 g/dL (6.4-8.2); Sodium Level 136 mEq/L (136-145); Troponin High Sensitivity 9.5 pg/mL (<58.9)
[2024-06-12 22:09] LABS: Bilirubin Direct < 0.2 mg/dL (0-0.2); Bilirubin Indirect, Calculated 0.1 mg/dL (0.2-0.8)
[2024-06-12 22:18] LABS: Influenza A Ag Negative; Influenza B Ag Negative; SARS-CoV-2 Antigen Rapid Res Negative (Negative)
--- NOTE | 2024-06-12 22:40 | RAD REPORT ---
EXAMINATION: ONE VIEW CHEST XR CLINICAL INDICATION: Female, 54 years old.,COUGH TECHNIQUE: Frontal chest projection is submitted. Examination is limited by patient positioning and t echnique. COMPARISON: 04/27/2024 FINDINGS: The lungs are well inflated and clear, with left basilar atelectatic changes. The central congestion partially improved since prior exam. No pneumothorax or sizable effusion. The heart is normal in size. Mediastinal contours are unremarkable. IMPRESSION: Improving central congestion. No other acute intrathoracic abnormalities.
--- NOTE | 2024-06-12 22:44 | EDPHYS ---
Physician Documentation [facility] Name: Ibeth De La Cruz Age: 54 yrs Sex: Female : 1970 Arrival Date: 06/12/2024 Time: 20:36 Bed 24 Private MD: ED Physician Silvestre Taylor HPI: 06/12 21:21 This 54 yrs old Female presents to ER via Wheelchair with complaints of martha Breathing Difficulty, General Weakness, Low 02 and is on 4liters at this time, Cough. 21:21 The patient has shortness of breath at rest. Onset: The symptoms/episode began/occurred martha 3 day(s) ago. Duration: The symptoms are continuous, and are steadily getting worse. The patient's shortness of breath has no apparent modifying factors. Associated signs and symptoms: The patient has no apparent associated signs or symptoms. Severity of symptoms: At their worst the symptoms were moderate in the emergency department the symptoms have improved. The patient has not experienced similar symptoms in the past. Historical: - Allergies: 21:14 Labetalol; cm10 21:14 ambien; cm10 21:14 Zofran; cm10 21:14 Demerol; cm10 - PMHx: 21:14 Cerebrovascular accident; Chronic obstructive lung disease; Congestive heart failure; cm10 Hypertensive disorder; - Immunization history:: Adult Immunizations up to date. - Infectious Disease History:: Denies. - Social history:: Smoking status: Patient reports the use of cigarette tobacco products, smokes one pack cigarettes per day. - Family history:: not pertinent. ROS: 21:21 Constitutional: Negative for fever, chills, and weight loss, Eyes: Negative for injury, martha pain, redness, and discharge, ENT: Negative for injury, pain, and discharge, Neck: Negative for injury, pain, and swelling, Cardiovascular: Negative for chest pain, palpitations, and edema, Abdomen/GI: Negative for abdominal pain, nausea, vomiting, diarrhea, and constipation, Back: Negative for injury and pain, : Negative for injury, bleeding, discharge, and swelling, MS/Extremity: Negative for injury and deformity, Skin: Negative for injury, rash, and discoloration, Neuro: Negative for headache, weakness, numbness, tingling, and seizure, Psych: Negative for depression, anxiety, suicide ideation, homicidal ideation, and hallucinations, Allergy/Immunology: Negative for hives, rash, and allergies, Endocrine: Negative for neck swelling, polydipsia, polyuria, polyphagia, and marked weight changes, Hematologic/Lymphatic: Negative for swollen nodes, abnormal bleeding, and unusual bruising, 21:21 Respiratory: Positive for cough, wheezing, inspiratory, expiratory, Exam: 21:21 Constitutional: This is a well developed, well nourished patient who is awake, alert, martha and in no acute distress. Head/Face: Normocephalic, atraumatic. Eyes: Pupils equal round and reactive to light, extra-ocular motions intact. Lids and lashes normal. Conjunctiva and sclera are non-icteric and not injected. Cornea within normal limits. Periorbital areas with no swelling, redness, or edema. ENT: Nares patent. No nasal discharge, no septal abnormalities noted. Tympanic membranes are normal and external auditory canals are clear. Oropharynx with no redness, swelling, or masses, exudates, or evidence of obstruction, uvula midline. Mucous membranes moist. Neck: Trachea midline, no thyromegaly or masses palpated, and no cervical lymphadenopathy. Supple, full range of motion without nuchal rigidity, or vertebral point tenderness. No Meningismus. Chest/axilla: Normal chest wall appearance and motion. Nontender with no deformity. No lesions are appreciated. Cardiovascular: Regular rate and rhythm with a normal S1 and S2. No gallops, murmurs, or rubs. Normal PMI, no JVD. No pulse deficits. Abdomen/GI: Soft, non-tender, with normal bowel sounds. No distension or tympany. No guarding or rebound. No evidence of tenderness throughout. Back: No spinal tenderness. No costovertebral tenderness. Full range of motion. Skin: Warm, dry with normal turgor. Normal color with no rashes, no lesions, and no evidence of cellulitis. MS/ Extremity: Pulses equal, no cyanosis. Neurovascular intact. Full, normal range of motion., bilateral aka Neuro: Awake and alert, GCS 15, oriented to person, place, time, and situation. Cranial nerves II-XII grossly intact. Motor strength 5/5 in all extremities. Sensory grossly intact. Cerebellar exam normal. Normal gait. 21:21 Respiratory: moderate respiratory distress is noted, Respirations: labored breathing, that is moderate, Breath sounds: bronchial sounds, rhonchi, stridor, that is mild, + upper airway congestion. wheezing: expiratory 21:45 ECG was reviewed by the Attending Physician. [facility] Vital Signs: 21:05 Pulse 81; Pulse Ox 78% on R/A; cm10 21:13 BP 156 / 57; Pulse 81; Resp 22; Pulse Ox 99% on 15 lpm Non-rebreather mask; Weight cm10 99.79 kg; Height 5 ft. 6 in. ; 22:15 BP 135 / 75; Pulse 88; Resp 18; Pulse Ox 96% on BiPAP; dd2 23:30 BP 158 / 88; Pulse 87; Resp 18; Pulse Ox 98% on BiPAP; dd2 06/13 00:00 BP 137 / 84; Pulse 86; Resp 19; Pulse Ox 100% on BiPAP; dd2 01:15 BP 148 / 85; Pulse 86; Resp 18; Pulse Ox 99% on 15 lpm Non-rebreather mask; dd2 02:00 BP 149 / 81; Pulse 97; Resp 19; Pulse Ox 94% on Non-rebreather mask; dd2 03:00 BP 151 / 84; Pulse 99; Resp 20; Pulse Ox 91% on BiPAP; dd2 06/12 21:13 Body Mass Index 35.51 (99.79 kg, 167.64 cm) cm10 [place] Coma Score: 06/12 21:43 Eye Response: spontaneous(4). Motor Response: obeys commands(6). Verbal Response: dd2 oriented(5). Total: 15. MDM: 20:41 Medical Screening Exam initiated [facility] 21:23 Differential diagnosis: Anemia Anxiety Reaction asthma, Bronchitis CHF exacerbation, martha Chronic Obstructive Pulmonary Disease reactive airway disease, Unstable Angina. Antibiotic administration: Levaquin given. Immunization status: Influenza vaccine: within last 5 years. Data reviewed: vital signs, nurses notes, lab test result(s), EKG, radiologic studies. Consideration of Admission/Observation Patient was admitted/placed on observation. Escalation of care including admission/observation considered. I considered the following discharge prescriptions or medication management in the emergency department Medications were administered in the Emergency Department. See MAR. Independent interpretation of the following test(s) in the Emergency Department EKG: See my EKG interpretation above. Test considered but Not performed: Ultrasound no 2 d echo. Care significantly affected by the following chronic conditions: Diabetes, Hypertension, Congestive Heart Failure, Chronic Obstructive Pulmonary Disease, Obesity, tobacco abuse. 06/12 20:44 Order name: Basic Metabolic Panel; Complete Time: 22:34 [facility] 06/12 20:44 Order name: CBC with Diff; Complete Time: 22:34 [facility] 06/12 20:44 Order name: LFT's; Complete Time: 22:34 [facility] 06/12 20:44 Order name: Magnesium; Complete Time: 22:34 [facility] 06/12 20:44 Order name: NT PRO-BNP; Complete Time: 22:34 [facility] 06/12 20:44 Order name: PT-INR; Complete Time: 22:34 [facility] 06/12 20:44 Order name: Troponin HS; Complete Time: 22:34 [facility] 06/12 20:44 Order name: Lactate w/ 2H reflex if indic.; Complete Time: 22:34 [facility] 06/12 20:44 Order name: Blood Culture Adult (2) [facility] 06/12 20:44 Order name: Lipase; Complete Time: 22:34 [facility] 06/12 20:44 Order name: Urinalysis w/ reflexes [facility] 06/12 20:44 Order name: COVID-19 Ag + Flu A+B Ag; Complete Time: 22:34 [facility] 06/12 21:20 Order name: ABG [facility] 06/13 00:32 Order name: Urinalysis w/ reflexes [facility] 06/13 00:32 Order name: CBC with Automated Diff [facility] 06/13 00:32 Order name: CBC with Automated Diff [facility] 06/13 00:32 Order name: Comprehensive Metabolic Panel [facility] 06/13 00:32 Order name: Comprehensive Metabolic Panel [facility] 06/12 20:44 Order name: XRAY Chest (1 view); Complete Time: 22:41 [facility] 06/12 20:44 Order name: Cardiac monitoring; Complete Time: 21:46 [facility] 06/12 20:44 Order name: EKG - Nurse/Tech; Complete Time: 21:46 [facility] 06/12 20:44 Order name: IV Saline Lock; Complete Time: 21:46 [facility] 06/12 20:44 Order name: Labs collected and sent; Complete Time: 21:46 [facility] 06/12 20:44 Order name: O2 Per Protocol; Complete Time: 21:46 [facility] 06/12 20:44 Order name: O2 Sat Monitoring; Complete Time: 21:46 martha EC:45 Rate is 69 beats/min. Rhythm is regular. QRS [place] is Normal. TX interval is normal. QRS martha interval is normal. QT interval is normal. No Q waves. T waves are Normal. No ST changes noted. Clinical impression: Normal ECG and No evidence of ischemia. Interpreted by me. Reviewed by me. Administered Medications: 21:46 Drug: Levalbuterol Inhalation 3.75 mg Inhalation once Route: Inhalation; dd2 21:46 Drug: Ipratropium Inhalation Aerosol 0.5 mg Inhalation once Route: Inhalation; dd2 21:59 Drug: LevOfloxacin PO 750 mg PO once Route: PO; dd2 22:30 Follow up: Response: No adverse reaction dd2 22:00 Drug: NS 0.9% IV 500 ml 500 ml IV at 1 bolus once; to be given as a bolus over 30 dd2 minutes Volume: 500 ml; Route: IV; Rate: 1 bolus; Site: right forearm; 22:15 Follow up: Response: No adverse reaction dd2 22:30 Follow up: IV Status: Completed infusion; IV Intake: 500ml dd2 22:00 Drug: MethylPrednisoLONE IVP 125 mg IVP once Route: IVP; Site: right forearm; dd2 22:15 Follow up: Response: No adverse reaction dd2 22:00 Drug: Famotidine IVP 20 mg IVP once; dilute with 10 mL 0.9% NaCl; give over 2 minutes dd2 Route: IVP; Site: right forearm; 22:15 Follow up: Response: No adverse reaction dd2 23:33 Drug: Levalbuterol Inhalation 2.5 mg Inhalation once Route: Inhalation; dd2 23:33 Drug: Decadron - Dexamethasone IVP 10 mg IVP once Route: IVP; Site: right forearm; dd2 23:33 Drug: Magnesium Sulfate IVPB 2 grams IVPB once over 1 hrs Route: IVPB; Infused Over: 1 dd2 hrs; Site: right forearm; 06/13 00:35 Follow up: IV Status: Completed infusion dd2 06/12 23:33 Drug: Furosemide IVP 20 mg IVP once; give over 2 minutes Route: IVP; Site: right dd2 forearm; 23:33 Not Given (Patient Refused): potassiumeffervescent tablet 25 meq PO once; dissolve in 4 dd2 ounces of water or juice 23:40 Drug: Potassium Chloride PO 40 mEq PO once Route: PO; dd2 06/13 00:37 Drug: Ativan IVP 1 mg IVP once Route: IVP; Site: right forearm; dd2 02:35 Drug: Ativan IVP 1 mg IVP once Route: IVP; Site: right forearm; dd2 Disposition Summary: 06/12/24 22:44 Hospitalization Ordered Notes: Hospitalization Status: Inpatient Admission martha Provider: Tramaine Jeronimo cha Condition: Fair martha Problem: new martha Symptoms: have improved martha Bed/Room Type: Standard martha Location: Telemetry/MedSurg (Inpatient)(06/13/24 10:34) hb Room Assignment: 211(06/13/24 10:34) hb Diagnosis - Dyspnea martha - COPD/ Chronic obstructive pulmonary disease with (acute) exacerbation martha - Acute and chronic respiratory failure with hypercapnia martha - Tobacco abuse counseling martha - Tobacco use martha - Obesity, unspecified martha Forms: - Medication Reconciliation Form martha - SBAR form martha - Leadership Thank You Letter martha Signatures: Dispatcher [employer] EDSilvestre Naranjo MD MD cha Baxter, Heather, RN RN Margarita Valencia, RN RN cm10 Barbara Cartagena DIANA, RN RN dd2 Corrections: (The following items were deleted from the chart) 06/12 20:45 20:45 BASIC METABOLIC PANEL+C.LAB.BRZ ordered. EDMS EDMS 20:45 20:45 CBC+H.LAB.BRZ ordered. EDMS EDMS 20:45 20:45 HEPATIC FUNCTION+C.LAB.BRZ ordered. EDMS EDMS 20:45 20:45 MAGNESIUM+C.LAB.BRZ ordered. EDMS EDMS 20:45 20:45 PROBNP+C.LAB.BRZ ordered. EDMS EDMS 20:45 20:45 PROTIME (+INR)+COAG.LAB.BRZ ordered. EDMS EDMS 20:45 20:45 Troponin High Sensitivity+C.LAB.BRZ ordered. EDMS EDMS 20:45 20:45 LACTATE+C.LAB.BRZ ordered. EDMS EDMS 20:45 20:45 BLOOD CULTURE*+BA.LAB.BRZ ordered. EDMS EDMS 20:45 20:45 LIPASE+C.LAB.BRZ ordered. EDMS EDMS 20:45 20:45 Urinalysis+U.LAB.BRZ ordered. EDMS EDMS 20:45 20:45 COVID-19 Ag + Flu A+B Ag+I.LAB.BRZ ordered. EDMS EDMS 20:45 20:45 Chest Single View+RAD.RAD.BRZ ordered. EDMS EDMS 22:46 22:46 BiPap ([employer] Only)+RC.RAD.BRZ ordered. EDMS EDMS 22:48 22:44 Telemetry/MedSurg (Inpatient) martha vk 22:48 22:44 martha vk 06/13 10:34 06/12 22:48 [facility] ER HOLD vk hb 06/13 10:34 06/12 22:48 ERHOLD- vk hb
--- NOTE | 2024-06-12 22:44 | ER ---
Nurse's Notes [facility] Name: Ibeth De La Cruz Age: 54 yrs Sex: Female : 1970 Arrival Date: 06/12/2024 Time: 20:36 Bed 24 Private MD: Diagnosis: Dyspnea;COPD/ Chronic obstructive pulmonary disease with (acute) exacerbation;Acute and chronic respiratory failure with hypercapnia;Tobacco abuse counseling;Tobacco use;Obesity, unspecified Presentation: 06/12 21:13 Chief complaint: Patient states: SHORTNESS OF BREATH THAT'S BEEN GETTING WORSE X3 DAYS. cm10 PT HYPOXIC IN TRIAGE. Coronavirus screen: Client denies travel out of the [place] in the last 14 days. Ebola Screen: Patient denies travel to an Ebola-affected area in the 21 days before illness onset. Initial Sepsis Screen: Does the patient meet any 2 criteria? No. Patient's initial sepsis screen is negative. Does the patient have a suspected source of infection? No. Patient's initial sepsis screen is negative. Risk Assessment: Do you want to hurt yourself or someone else? Patient reports no desire to harm self or others. Onset of symptoms was June 12, 2024. 21:13 Method Of Arrival: Wheelchair cm10 21:13 Acuity: ELAINE 2 cm10 Triage Assessment: 21:15 General: Appears ill, Behavior is cooperative. Neuro: No deficits noted. Level of cm10 Consciousness is awake, alert, Oriented to person, place, time, situation, Appropriate for age. Respiratory: Reports shortness of breath Airway is patent Respiratory effort is labored, Respiratory pattern is tachypnea the patient has severe shortness of breath. Derm: Skin is pale. Historical: - Allergies: 21:14 Labetalol; cm10 21:14 ambien; cm10 21:14 Zofran; cm10 21:14 Demerol; cm10 - PMHx: 21:14 Cerebrovascular accident; Chronic obstructive lung disease; Congestive heart failure; cm10 Hypertensive disorder; - Immunization history:: Adult Immunizations up to date. - Infectious Disease History:: Denies. - Social history:: Smoking status: Patient reports the use of cigarette tobacco products, smokes one pack cigarettes per day. - Family history:: not pertinent. Screenin:43 [facility] ED Fall Risk Assessment (Adult) History of falling in the last 3 months, dd2 including since admission No falls in past 3 months (0 pts) Confusion or Disorientation No (0 pts) Intoxicated or Sedated No (0 pts) Impaired Gait No (0 pts) Mobility Assist Device Used No (0 pt) Altered Elimination No (0 pt) Score/Fall Risk Level 0 - 2 = Low Risk Oriented to surroundings, Maintained a safe environment, Educated pt \T\ family on fall prevention, incl call for assistance when getting out of bed, Assessed \T\ reinforced patient's understanding of fall precautions, Hourly rounding (assess needs \T\ fall precautionary measures) done. Abuse screen: Denies threats or abuse. Denies injuries from another. Nutritional screening: No deficits noted. Tuberculosis screening: No symptoms or risk factors identified. Assessment: 21:43 General: Appears uncomfortable, Behavior is calm, cooperative, appropriate for age. dd2 Pain: Complains of pain in chest Pain does not radiate. Pain currently is 4 out of 10 on a pain scale. Quality of pain is described as aching, Aggravated by COUGHING. Neuro: Gabriel Agitation-Sedation Scale (RASS): 0 - Alert and Calm Level of Consciousness is awake, alert, obeys commands, Oriented to person, place, time, situation, Appropriate for age. Cardiovascular: Rhythm is sinus tachycardia Chest pain is described as mild, quality is ACHING is aggravated by COUGHING. Respiratory: Reports shortness of breath cough that is non-productive, labored breathing pain with cough Airway is patent Respiratory effort is labored, Respiratory pattern is regular, tachypnea Breath sounds with wheezes bilaterally. Onset: The symptoms/episode began/occurred at an unknown time. the patient has moderate shortness of breath. GI: No deficits noted. No signs and/or symptoms were reported involving the gastrointestinal system. Abdomen is round non-distended, obese, Abd is soft and non tender X 4 quads. : No deficits noted. No signs and/or symptoms were reported regarding the genitourinary system. EENT: No deficits noted. No signs and/or symptoms were reported regarding the EENT system. Derm: No deficits noted. No signs and/or symptoms reported regarding the dermatologic system. Skin is healthy with good turgor, Skin is dry, Skin is normal, Skin temperature is warm. Musculoskeletal: No deficits noted. No signs and/or symptoms reported regarding the musculoskeletal system. Circulation, motion, and sensation intact. Range of motion: intact in all extremities. 21:58 Respiratory: Patient placed on BiPAP: Respiratory Rate: 18. dd2 Vital Signs: 21:05 Pulse 81; Pulse Ox 78% on R/A; cm10 21:13 BP 156 / 57; Pulse 81; Resp 22; Pulse Ox 99% on 15 lpm Non-rebreather mask; Weight cm10 99.79 kg; Height 5 ft. 6 in. ; 22:15 BP 135 / 75; Pulse 88; Resp 18; Pulse Ox 96% on BiPAP; dd2 23:30 BP 158 / 88; Pulse 87; Resp 18; Pulse Ox 98% on BiPAP; dd2 06/13 00:00 BP 137 / 84; Pulse 86; Resp 19; Pulse Ox 100% on BiPAP; dd2 01:15 BP 148 / 85; Pulse 86; Resp 18; Pulse Ox 99% on 15 lpm Non-rebreather mask; dd2 02:00 BP 149 / 81; Pulse 97; Resp 19; Pulse Ox 94% on Non-rebreather mask; dd2 03:00 BP 151 / 84; Pulse 99; Resp 20; Pulse Ox 91% on BiPAP; dd2 06/12 21:13 Body Mass Index 35.51 (99.79 kg, 167.64 cm) cm10 [place] Coma Score: 06/12 21:43 Eye Response: spontaneous(4). Motor Response: obeys commands(6). Verbal Response: dd2 oriented(5). Total: 15. ED Course: 20:40 Patient arrived in ED. gm2 20:41 Silvestre Taylor MD is Attending Physician. martha 21:14 Triage completed. cm10 21:16 Arm band placed on right wrist. Patient placed in an exam room, on a stretcher, on cm10 oxygen, on pulse oximetry. 21:33 Initial lab(s) drawn, by ED staff, sent to lab. First set of blood cultures drawn by ED dd2 staff, EKG done, by ED staff, reviewed by Silvestre Taylor MD. Inserted saline lock: 20 gauge in right forearm, using aseptic technique. Blood collected. Flushed with 10 mL NS. 21:43 Patient has correct armband on for positive identification. Bed in low position. Call dd2 light in reach. Side rails up X2. Client placed on continuous cardiac and pulse oximetry monitoring. NIBP monitoring applied. media monitor on. Door closed. Noise minimized. Warm blanket given. Pillow given. Verbal reassurance given. 21:46 COVID-19 Ag + Flu A+B Ag Sent. dd2 21:46 No provider procedures requiring assistance completed. dd2 21:47 Initial Neb Treatment Given as ordered Patient was instructed and evaluated on dd2 procedure. Oxygen administration via non-rebreather mask \T\ 15L/min Response to oxygen therapy: symptoms remain unchanged. 21:48 O2 via Bipap. bm8 21:57 XRAY Chest (1 view) In Process Unspecified. EDMS 22:25 THEO DUMONT RN is Primary Nurse. dd2 22:42 Tramaine Jeronimo MD is Hospitalizing Provider. [facility] 06/13 03:13 Patient admitted, IV remains in place. dd2 Administered Medications: 06/12 21:46 Drug: Levalbuterol Inhalation 3.75 mg Inhalation once Route: Inhalation; dd2 21:46 Drug: Ipratropium Inhalation Aerosol 0.5 mg Inhalation once Route: Inhalation; dd2 21:59 Drug: LevOfloxacin PO 750 mg PO once Route: PO; dd2 22:30 Follow up: Response: No adverse reaction dd2 22:00 Drug: NS 0.9% IV 500 ml 500 ml IV at 1 bolus once; to be given as a bolus over 30 dd2 minutes Volume: 500 ml; Route: IV; Rate: 1 bolus; Site: right forearm; 22:15 Follow up: Response: No adverse reaction dd2 22:30 Follow up: IV Status: Completed infusion; IV Intake: 500ml dd2 22:00 Drug: MethylPrednisoLONE IVP 125 mg IVP once Route: IVP; Site: right forearm; dd2 22:15 Follow up: Response: No adverse reaction dd2 22:00 Drug: Famotidine IVP 20 mg IVP once; dilute with 10 mL 0.9% NaCl; give over 2 minutes dd2 Route: IVP; Site: right forearm; 22:15 Follow up: Response: No adverse reaction dd2 23:33 Drug: Levalbuterol Inhalation 2.5 mg Inhalation once Route: Inhalation; dd2 23:33 Drug: Decadron - Dexamethasone IVP 10 mg IVP once Route: IVP; Site: right forearm; dd2 23:33 Drug: Magnesium Sulfate IVPB 2 grams IVPB once over 1 hrs Route: IVPB; Infused Over: 1 dd2 hrs; Site: right forearm; 06/13 00:35 Follow up: IV Status: Completed infusion dd2 06/12 23:33 Drug: Furosemide IVP 20 mg IVP once; give over 2 minutes Route: IVP; Site: right dd2 forearm; 23:33 Not Given (Patient Refused): potassiumeffervescent tablet 25 meq PO once; dissolve in 4 dd2 ounces of water or juice 23:40 Drug: Potassium Chloride PO 40 mEq PO once Route: PO; dd2 06/13 00:37 Drug: Ativan IVP 1 mg IVP once Route: IVP; Site: right forearm; dd2 02:35 Drug: Ativan IVP 1 mg IVP once Route: IVP; Site: right forearm; dd2 Medication: 06/12 21:43 VIS not applicable for this client. dd2 Intake: 22:30 IV: 500ml; Total: 500ml. dd2 Outcome: 22:44 Decision to Hospitalize by Provider. [facility] 06/13 03:13 Admitted to ER Hold. Please see [facility] for further documentation. dd2 Condition: stable Instructed on the need for admit, 12:22 Patient left the ED. Signatures: Dispatcher [employer] Silvestre Blancas MD MD cha Baxter, Heather, RN RN Margarita Valencia RN RN cm10 Fabi Rios 2 Arnie Person RN RN bm8 THEO DUMONT RN RN dd2 Corrections: (The following items were deleted from the chart) 06/12 21:59 21:46 No provider procedures requiring assistance completed. dd2 dd2 22:36 22:25 Respiratory: Patient placed on BiPAP: Respiratory Rate: 18 dd2 dd2
[2024-06-12] MEDS ORDERED: POTASSIUM 25 MEQ EFFERV TAB ONE (22:59)
[2024-06-12] MEDS ORDERED: dexAMETHasone 10 MG/ML VIAL ONE (22:59)
[2024-06-12] MEDS ORDERED: FUROSEMIDE 20 MG/ 2ML VIAL ONE (22:59)
[2024-06-12] MEDS ORDERED: Magnesium Sulfate 2gm IVPB 2 G/50 ML BAG IV ONE (22:59)
[2024-06-12] MEDS ORDERED: POTASSIUM CL SA 10 MEQ TAB PO ONE (23:37)
[2024-06-13] MEDS ORDERED: LORazepam 2 MG/ML VIAL ONE ×3 (00:20→08:15)
--- NOTE | 2024-06-13 00:26 | P.HP ---
Certification for Inpatient Patient admitted to: Inpatient With expected LOS: >2 Midnights Practitioner: I am a practitioner with admitting privileges, knowledge of patient current condition, hospital course, and medical plan of care. Services: Services provided to patient in accordance with Admission requirements found in Title 42 Section 412.3 of the Code of Federal Regulations Patient History Date of Service: 06/13/24 Reason for admission: sob History of Present Illness: 54-year-old female presents with complaints of of shortness of breath. She normally is on CPAP at night. She reports that her symptoms have been progressively getting worse in the past week. She reports that she had fever at home. She reports having yellow phlegm. She also complains of fatigue. Denies any chest pain abdominal pain nausea. In the ER she was noted to have a low O2 and was placed on 4 L. She is currently feeling slightly better. A dose of Levaquin was given. As well as steroids and famotidine. She does smoke 1 pack/day. She reports that she previously was on 3 packs/day Allergies No Known Allergies Allergy (Unverified 05/07/11 12:35) Home Medications: Amlodipine [Norvasc*] 10 mg PO DAILY 04/27/24 Buprenorphine HCl [Belbuca] 600 mcg BC Q12H 04/27/24 Fluticasone/Umeclidin/Vilanter [Trelegy Ellipta 100-62.5-25] 1 inh IH DAILY 04/27/24 Furosemide 40 mg PO DAILY 04/27/24 Gabapentin [Neurontin] 800 mg PO TID 04/27/24 Losartan Potassium 50 mg PO DAILY 04/27/24 Mirtazapine 30 mg PO BEDTIME 04/27/24 Omeprazole [Prilosec] 40 mg PO DAILY 04/27/24 Prednisone [Sterapred Ds] 10 mg PO BID 04/27/24 Roflumilast 500 mcg PO DAILY 04/27/24 Spironolactone 25 mg PO DAILY 04/27/24 Tizanidine [Zanaflex*] 2 cap PO BEDTIME 04/27/24 Venlafaxine HCl [Effexor XR] 150 mg PO 30 MIN BEFORE HS 04/27/24 cloNIDine HCL [Clonidine HCl] 0.1 mg PO DAILY 04/27/24 Atorvastatin Calcium [Lipitor] 80 mg PO BEDTIME 30 Days #30 tab 04/30/24 Nicotine [Nicoderm*] 21 mg TD DAILY #15 04/30/24 Tizanidine [Zanaflex*] 8 mg PO BEDTIME tab 04/30/24 Venlafaxine HCl *Xr* [Effexor XR] 225 mg PO DAILY cap 04/30/24 - Past Medical/Surgical History Diabetic: Yes -: Opioid pain management -: COPD -: CVA -: HTN -: CHF -: Multiple Sclerosis Psychosocial/ Personal History: 2 children at bedside, [facility] - Social History Caffeine use: Yes Review of Systems 10-point ROS is otherwise unremarkable Respiratory: Cough, Shortness of Breath Physical Examination - Physical Exam General: Alert, Oriented x3 HEENT: Normocephalic Respiratory: Expiratory wheezes, Inspiratory wheezes Cardiovascular: Regular rate/rhythm, Normal S1 S2 Gastrointestinal: Soft and benign, Non-distended Musculoskeletal: No contractures Integumentary: No rashes, No breakdown - Studies Laboratory Data (last 24 hrs) 06/12/24 06/12/24 06/12/24 21:33 21:33 21:33 WBC 9.90 Hgb 14.6 Hct 46.8 H Plt Count 296 PT 11.5 INR 1.01 Sodium 136 Potassium 4.2 BUN 8 Creatinine 0.80 Glucose 165 H Magnesium 2.4 Total Bilirubin 0.3 AST 17 ALT 20 Alkaline Phosphatase 102 Lipase 14 Assessment and Plan - Problems (Diagnosis) (1) COPD (chronic obstructive pulmonary disease) Current Visit: Yes Status: Acute (2) Tobacco use Current Visit: Yes Status: Acute (3) HIRA (obstructive sleep apnea) Current Visit: Yes Status: Acute (4) Respiratory failure with hypoxia and hypercapnia Current Visit: No Status: Acute Qualifiers: - Plan 54-year-old female presents with increased shortness of breath. Acute hypoxemic respiratory failure COPD exacerbation Tobacco use Obstructive sleep apnea on CPAP -- Admit to Med[facility] with telemetry -- Continuous pulse ox -- Oxygen as needed -- CPAP at nighttime -- As needed nebs, IV steroids, continue Levaquin Hypertension Hyperlipidemia CHF Anxiety --Await medication reconciliation, will consider dose of Lasix in a.m. - Advance Directives Does patient have a Living Will: No Does patient have a Durable POA for Healthcare: No
[2024-06-13] MEDS ORDERED: ACETAMINOPHEN 500 MG TAB PO PRN (00:27)
[2024-06-13 01:15] LABS: Specific Gravity 1.013 (1.005-1.030); Urine Bilirubin NEGATIVE (Negative); Urine Blood Negative (Negative); Urine Clarity Clear (Clear); Urine Color Light-Yellow (Yellow); Urine Glucose NEGATIVE (Negative); Urine Ketones NEGATIVE (Negative); Urine Microscopic Reflex YN NO UMIC; Urine Nitrite NEGATIVE (Negative); Urine Protein NEGATIVE (Negative); Urine Urobilinogen Normal (Normal)
[2024-06-13 03:43] VITALS: BMI 36.5
--- NOTE | 2024-06-13 07:36 | P.PN ---
Date of Service: 06/13/24 Subjective: feels some improvement compared to initial arrival still groggy denies any new/worsening symptoms Physical Exam: GEN: Alert but groggy, oriented, NAD CV: Regular rate and rhythm, no edema Pulm: Non-labored respirations on NC this morning, expiratory wheeze, cough ABD: soft, nontender, nondistended Neuro: Normal speech, normal affect Problem List: Acute hypoxic respiratory failure secondary to Acute on chronic COPD exacerbation Obstructive sleep apnea - on CPAP Hypertension Hyperlipidemia CHF Anxiety/Depression Chronic pain syndrome Hx CVA Hx Multiple Sclerosis Tobacco use Acute hypoxic respiratory failure secondary to Acute on chronic COPD exacerbation Obstructive sleep apnea - on CPAP on admission, presents with worsening shortness of breath, productive cough, fatigue, +reported fever at home. SPO2 78% on room air on ER arrival 06/12 - CXR (06/12): improving central congestion compared to CXR last month. given IV steroids, IV levaquin, duonebs, IVF in ED. UA unremarkable. Flu/Covid screen negative. Follow blood cultures Placed on non-rebreather in ED. elevated CO2, check ABG 06/13 - Non-rebreather switched to BIPAP in ED due to satting 70-80% on non- rebreather. SPO2 improved to 95% on BIPAP. Wean oxygen as tolerated. Uses CPAP at night at home. Ativan x1 ordered given anxiety from BIPAP continue IV steroids, nebs Pulm consult confirm home meds Hypertension Hyperlipidemia CHF Anxiety/Depression Chronic pain syndrome Hx CVA Hx Multiple Sclerosis confirm home meds, restart as appropriate Tobacco use Currently smokes 1 pack/day cessation advised. Code: Full Dispo: Home, ~2-3 days Pending breathing improves, pulm recs Time Spent Managing Pts Care (In Minutes): 55
[2024-06-13] MEDS ORDERED: METHYLPREDNISOLONE 40 MG INJ ONE (07:40)
[2024-06-13] MEDS: METHYLPREDNISOLONE 40 MG INJ IV SCH (07:46)
[2024-06-13] MEDS: LORazepam 2 MG/ML VIAL IV ONE (07:54)
[2024-06-13] MEDS ORDERED: levoFLOXacin 750 MG TAB ONE (08:15)
[2024-06-13] MEDS: levoFLOXacin 750 MG TAB PO SCH (08:23)
[2024-06-13] MEDS: GABAPENTIN 300 MG CAP PO SCH (21:00)
[2024-06-13] MEDS ORDERED: BROMPHENIRAMINE PO PRN (21:54)
[2024-06-13] MEDS ORDERED: PSEUDOEPHEDRINE PO PRN (21:54)
[2024-06-13] MEDS ORDERED: DEXTROMETHORPHAN PO PRN (21:54)
[2024-06-13] MEDS: BUPRENORPHINE 600 MCG PO SCH (22:17)
[2024-06-13] MEDS: LORazepam 2 MG/ML VIAL IV PRN (22:43)
[2024-06-13] MEDS: VENLAFAXINE HCL XR 75 MG CAP PO SCH (22:44)
[2024-06-14 05:55] LABS: Absolute Lymphocytes (CBC) 1.1 K/uL (0.7-4.9); Absolute Monocytes 0.7 K/uL (0.1-1.3); Absolute Neutrophil 12.7 K/uL (1.8-8.0); Basophils % 0.2 % (0-1.3); Hematocrit 46.5 % (36.0-45.0); Hemoglobin 14.5 g/dL (12.0-15.0); Lymphocytes % 7.5 % (15.3-44.8); MCH 26.7 pg (27.0-35.0); MCHC 31.2 g/dL (32.0-36.0); MCV 85.6 fL (80-100); MPV 7.6 fL (7.6-11.3); Monocytes % 4.6 % (3.3-12.3); Neutrophils % 87.7 % (41.7-73.7); Platelets 306 thou/uL (152-406); RBC Red Blood Cell Count 5.43 M/uL (3.86-4.86); Red Cell Distribution Width 17.1 % (12.1-15.2)
[2024-06-14 06:03] LABS: Albumin 2.6 g/dL (3.4-5.0); Albumin/Globulin Ratio 0.5 (1.1-1.8); Anion Gap 5.8 mEq/L (5.0-15.0); Bilirubin Total 0.2 mg/dL (0.2-1.0); Globulin 4.9 g/dL (2.3-3.5); Magnesium 2.4 mg/dL (1.6-2.4); Potassium 4.8 mEq/L (3.5-5.1); Protein, Total 7.5 g/dL (6.4-8.2)
[2024-06-14] MEDS: ALBUTEROL 2.5 MG/3 ML NEB SOL NEB PRN (08:28)
[2024-06-14] MEDS ORDERED: Buprenorphine Hcl [Belbuca] 600 MCG Film PO SCH (09:00)
[2024-06-14] MEDS ORDERED: VENLAFAXINE HCL XR 75 MG CAP PO SCH ×3 (09:00→21:00)
[2024-06-14 09:24] LABS: Blood Morphology Comment NOT SEEN (NOT SEEN); Platelet Estimate ADEQ; White Blood Cell Scan OK (OK)
[2024-06-14] MEDS: LOSARTAN POTASSIUM 50 MG TABLET PO SCH (09:52)
[2024-06-14] MEDS: ATORVASTATIN 80 MG TAB PO SCH (09:53)
[2024-06-14] MEDS: GABAPENTIN 400 MG CAP PO SCH ×2 (09:53→21:37)
[2024-06-14] MEDS: AMLODIPINE 10 MG TAB PO SCH (09:54)
[2024-06-14] MEDS: ROFLUMILAST 500 MCG TABLET PO SCH (09:55)
--- NOTE | 2024-06-14 11:15 | P.PN ---
Date of Service: 06/14/24 Subjective: BiPAP at night, ~10-11L NC during the day reports some severe anxiety with BiPAP use breathing feels a little easier no acute events overnight Physical Exam: GEN: Alert but groggy, oriented, NAD CV: Regular rate and rhythm, no edema Pulm: mildly-labored respirations on NC this morning, expiratory wheeze, cough Neuro: Normal speech, normal affect Problem List: Acute hypoxic respiratory failure secondary to Acute on chronic COPD exacerb ation Obstructive sleep apnea - on CPAP Hypertension Hyperlipidemia CHF Anxiety/Depression Chronic pain syndrome Hx CVA Hx Multiple Sclerosis Tobacco use Acute hypoxic respiratory failure secondary to Acute on chronic COPD exacerbation Obstructive sleep apnea - on CPAP on admission, presents with worsening shortness of breath, productive cough, fatigue, +reported fever at home. SPO2 78% on room air on ER arrival 06/12 - CXR (06/12): improving central congestion compared to CXR last month. given IV steroids, IV levaquin, duonebs, IVF in ED. UA unremarkable. Flu/Covid screen negative. Follow blood cultures Placed on non-rebreather in ED. elevated CO2, check ABG 06/13 - Non-rebreather switched to BIPAP in ED due to satting 70-80% on non- rebreather. SPO2 improved to 95% on BIPAP. Wean oxygen as tolerated. Uses CPAP at night at home. Ativan x1 ordered given anxiety from BIPAP continue IV steroids, nebs Pulm consult 06/14 - Feeling better overall wearing BiPAP at night, ~10-11L NC during the day reports some severe anxiety with BiPAP use feels better after using bipap - way better compared to using CPAP. with cpap would still feel groggy Hypertension Hyperlipidemia CHF Anxiety/Depression Chronic pain syndrome Hx CVA Hx Multiple Sclerosis confirm home meds, restart as appropriate resume home losartan, statin, gabapentin, amlodipine, venlafaxine, tizanidine Tobacco use Currently smokes 1 pack/day cessation advised. Code: Full Dispo: Home, ~2-3 days Pending breathing improves, pulm recs Time Spent Managing Pts Care (In Minutes): 55
--- NOTE | 2024-06-14 11:20 | EKG ---
Test Date: 2024-06-12 Test Time: 20:32:00 Cell Tender: RANDY MEASUREMENT RESULTS: Intervals: Rate: 69 VA: 128 QRSD: 84 QT: 394 QTc: 422 [place]: P: 64 VA: 128 QRS: 19 T: 65 INTERPRETIVE STATEMENTS: Normal sinus rhythm Normal ECG Compared to ECG 04/27/2024 14:58:35 No significant changes Electronically Signed On 06-14-24 11:18:06 CDT by Regan Kingston
[2024-06-14] MEDS: ALBUTEROL 2.5 MG/3 ML NEB SOL NEB SCH (13:40)
[2024-06-14] MEDS: DULERA 200/5 (MOMETASONE/FORMOTEROL) INHALER IH SCH (13:54)
[2024-06-14] MEDS: FUROSEMIDE 40 MG TABLET PO SCH (13:58)
--- NOTE | 2024-06-14 16:32 | P.CNS ---
Date of Consult: 06/14/24 Reason for Consult: COPD exacerbation Chief Complaint: sob History of Present Illness: Patient is 54 years of age admitted with worsening dyspnea she has been having problems for the past month not tolerate Trelegy worse when the prednisone was decreased from 20 twice a day to 10 daily is having problem with her CPAP does not seem to be as effective as the BiPAP has a productive cough no fever or chills pliant with her inhalers Allergies No Known Allergies Allergy (Unverified 05/07/11 12:35) Home Medications: Amlodipine [Norvasc*] 10 mg PO DAILY 04/27/24 Gabapentin [Neurontin] 800 mg PO DAILY 04/27/24 Losartan Potassium 50 mg PO DAILY 04/27/24 Omeprazole [Prilosec] 40 mg PO BEDTIME 04/27/24 Prednisone [Sterapred Ds] 10 mg PO BID 04/27/24 Roflumilast 500 mcg PO DAILY 04/27/24 Tizanidine [Zanaflex*] 2 cap PO BEDTIME 04/27/24 Venlafaxine HCl [Effexor XR] 150 mg PO BEDTIME 04/27/24 Tizanidine [Zanaflex*] 8 mg PO BEDTIME tab 04/30/24 Acetaminophen [8 Hour Pain Relief] 1 tab PO Q12HR 06/13/24 Albuterol Inhaler [Ventolin Inhaler*] 1 puff PO PRN 06/13/24 Atorvastatin Calcium [Lipitor] 80 mg PO DAILY 06/13/24 Buprenorphine HCl [Belbuca] 600 mcg PO BID 06/13/24 D-Methorphan Hb/P-Epd HCl/Bpm [Bromphenex Dm Syrup] 10 ml PO PRN PRN 06/13/24 Gabapentin 2 tab PO BEDTIME 06/13/24 Guaifenesin [Mucinex] 600 mg PO Q12HR 06/13/24 Venlafaxine HCl *Xr* [Effexor XR] 75 mg PO BEDTIME 06/13/24 - Past Medical/Surgical History Diabetic: Yes -: Opioid pain management -: COPD -: CVA -: HTN -: CHF -: Multiple Sclerosis Psychosocial/ Personal History: 2 children at bedside, sees Dr. Knight, difficult to get good social hx - Social History Smoking Status: Current every day smoker Caffeine use: Yes Place of Residence: Home Review of Systems 10-point ROS is otherwise unremarkable General: Weakness Respiratory: Cough, Shortness of Breath Physical Examination Temp Pulse Resp BP Pulse Ox 97.9 F 77 20 160/77 H 96 06/14/24 12:00 06/14/24 12:00 06/14/24 12:00 06/14/24 12:00 06/14/24 12:00 General: Alert, Oriented x3 Respiratory: Expiratory wheezes Cardiovascular: No edema, Regular rate/rhythm, Normal S1 S2 Gastrointestinal: Normal bowel sounds, Soft and benign, Non-distended Musculoskeletal: No clubbing, No swelling - Problems (1) COPD exacerbation Current Visit: Yes Status: Acute Plan: Patient is 54 years of age admitted with worsening dyspnea intolerant to Trelegy not improving with low doses of steroids using Roflumilast and albuterol warp changer to Dulera is a dose of Solu-Medrol add levofloxacin echo cardiogram some interstitial changes on chest x-ray BNP is only mildly elevated added some Lasix chemistries reviewed doubt infection count was normal on admission elevated from the high doses of steroids patient is requiring very high oxygen liter flow unable to do blood gases
[2024-06-14] MEDS: METHYLPREDNISOLONE 40 MG INJ IV SCH (17:45)
[2024-06-14] MEDS: IPRATROPIUM BROM 0.5MG/2.5ML NEB SCH (20:47)
[2024-06-14] MEDS: BUPRENORPHINE 600 MCG SL SCH (21:00)
[2024-06-14] MEDS ORDERED: GABAPENTIN 400 MG CAP PO SCH (21:00)
[2024-06-14] MEDS: TIZANIDINE 4 MG TABLET PO SCH (21:37)
[2024-06-14] MEDS: VENLAFAXINE HCL XR 75 MG CAP PO SCH (21:38)
[2024-06-15 04:51] LABS: Absolute Lymphocytes (CBC) 0.9 K/uL (0.7-4.9); Absolute Monocytes 0.5 K/uL (0.1-1.3); Absolute Neutrophil 11.2 K/uL (1.8-8.0); Basophils % 0.3 % (0-1.3); Hematocrit 47.1 % (36.0-45.0); Hemoglobin 14.8 g/dL (12.0-15.0); MCH 26.8 pg (27.0-35.0); MCHC 31.4 g/dL (32.0-36.0); MCV 85.4 fL (80-100); MPV 7.5 fL (7.6-11.3); Platelets 277 thou/uL (152-406); RBC Red Blood Cell Count 5.52 M/uL (3.86-4.86); Red Cell Distribution Width 17.5 % (12.1-15.2)
[2024-06-15 04:54] LABS: Neutrophils % 88.7 % (41.7-73.7)
[2024-06-15 05:09] LABS: Albumin 2.7 g/dL (3.4-5.0); Anion Gap 5.2 mEq/L (5.0-15.0); Magnesium 2.4 mg/dL (1.6-2.4); Phosphorus 3.8 mg/dL (2.5-4.9); Potassium 4.2 mEq/L (3.5-5.1)
[2024-06-15 10:18] LABS: Specific Gravity 1.017 (1.005-1.030); Urine Bilirubin NEGATIVE (Negative); Urine Blood Negative (Negative); Urine Clarity Clear (Clear); Urine Color Light-Yellow (Yellow); Urine Glucose TRACE (Negative); Urine Ketones NEGATIVE (Negative); Urine Microscopic Reflex YN NO UMIC; Urine Nitrite NEGATIVE (Negative); Urine Protein NEGATIVE (Negative); Urine Urobilinogen Normal (Normal); Urine pH 6.5 (5.0-7.0)
[2024-06-15 10:52] LABS: Blood Gas Oxyhemoglobin 86.8 % (94-97); Blood Gas THB 15.5 g/dl (12-18); Blood O2 Saturation 88.3 % (92-98.5)
--- NOTE | 2024-06-15 11:52 | ECHO ---
HEIGHT: 5 ft 6 in WEIGHT: 219 lb 5 oz DATE OF STUDY: 06/15/[address]: Geovany Aldana MD 2-DIMENSIONAL: YES M.MODE: YES DOPPLER: YES COLOR FLOW: YES TDS: YES PORTABLE: YES DEFINITY: BUBBLE STUDY: DIAGNOSIS: RESPIRATORY FAILURE CARDIAC HISTORY: CATHERIZATION: NO SURGERY: NO PROSTHETIC VALVE: NO PACEMAKER: NO MEASUREMENTS (cm) DIASTOLIC (NORMALS) SYSTOLIC (NORMALS) IVSd 1.4 (0.6-1.2) LA Diam 3.5 (1.9-4.0) LVEF 60-65% LVIDd 4.1 (3.5-5.7) LVIDs 3.0 (2.0-3.5) %FS 27% LVPWd 1.4 (0.6-1.2) Ao Diam 2.8 (2.0-3.7) 2 DIMENSIONAL ASSESSMENT: RIGHT ATRIUM: NORMAL LEFT ATRIUM: NORMAL RIGHT VENTRICLE: NORMAL LEFT VENTRICLE: NORMAL TRICUSPID VALVE: TRACE TRICUSPID REGURGITATION MITRAL VALVE: NORMAL PULMONIC VALVE: NORMAL AORTIC VALVE: NORMAL PERICARDIAL EFFUSION: NONE AORTIC ROOT: NORMAL LEFT VENTRICULAR WALL MOTION: NORMAL DOPPLER/COLOR FLOW: NORMAL COMMENTS: 1. NORMAL LEFT VENTRICULAR SYSTOLIC FUNCTION, EJECTION FRACTION 60-65%, NORMAL WALL MOTION 2. NORMAL DIASTOLIC FUNCTION 3. MILD ELEVATED FILLING PRESSURE (RIGHT ATRIAL PRESSURE 10-15mmHg) TECHNOLOGIST: SANTOSH CELAYA
--- NOTE | 2024-06-15 12:40 | P.PN ---
Subjective Date of Service: 06/15/24 Chief Complaint: Respiratory failure No change in patient's condition she still having shortness of breath Review of Systems General: Weakness Respiratory: Shortness of Breath Physical Examination - Vital Signs Temperature: 97.7 F Blood Pressure: 174/82 Pulse: 65 Respirations: 20 Pulse Ox (%): 99 - Physical Exam General: Alert, Oriented x3 Respiratory: Clear to auscultation bilaterally, Diminished Cardiovascular: No edema, Regular rate/rhythm Assessment And Plan - Current Problems (Diagnosis) (1) Respiratory failure with hypoxia and hypercapnia Current Visit: No Status: Acute Plan: Patient has chronic respiratory failure with hypoxemia and hypercapnia due to underlying severe COPD and will benefit from a noninvasive ventilator to prevent hospital readmissions currently on optimal therapy with no relief count is mildly elevated patient has a normal echocardiogram is still have underlying diastolic dysfunction I will change her over to spironolactone blood pressure is elevated DC Lasix and noninvasive ventilator order request sent to social work Qualifiers: Chronicity: chronic Qualified Code(s): J96.11 - Chronic respiratory failure with hypoxia; J96.12 - Chronic respiratory failure with hypercapnia
--- NOTE | 2024-06-15 16:01 | P.PN ---
Subjective Date of Service: 06/15/24 Chief Complaint: Respiratory failure Patient states she is gradually getting better. She has been tolerating oxygen by nasal cannula today. No recorded fever. Physical Examination - Vital Signs Temperature: 97.7 F Blood Pressure: 174/82 Pulse: 65 Respirations: 20 Pulse Ox (%): 99 Assessment And Plan - Plan Physical Exam: GEN: Awake and alert, NAD ENT: Oxygen by nasal cannula CV: Regular rate and rhythm, no edema Pulm: Bilateral wheezes, no crackles, diminished breath sounds bilaterally. Neuro: Normal speech, normal affect. No focal motor deficit. Problem List: Acute hypoxic respiratory failure secondary to Acute on chronic COPD exacerbation Obstructive sleep apnea - on CPAP Hypertension Hyperlipidemia CHF Anxiety/Depression Chronic pain syndrome Hx CVA Hx Multiple Sclerosis Tobacco use Acute hypoxic respiratory failure secondary to Acute on chronic COPD exacerbation Obstructive sleep apnea - on CPAP on admission, presents with worsening shortness of breath, productive cough, fatigue, +reported fever at home. SPO2 78% on room air on ER arrival Status post non-rebreather switched to BIPAP in ED due to satting 70-80% on non- rebreather. SPO2 improved to 95% on BIPAP. Patient has been using CPAP at night at home. She is currently tolerating oxygen by nasal cannula. Now at 5 L/min Pulmonary Dr. Aldana is following IV steroid transition to oral prednisone Continue nebs, Dr. Aldana is following and arranging for BiPAP to replace his CPAP at home Hypertension Hyperlipidemia CHF Anxiety/Depression Chronic pain syndrome Hx CVA Hx Multiple Sclerosis Continue home medications Tobacco use Currently smokes 1 pack/day Smoking cessation advised. Code: Full Dispo: Home Pending breathing improves, pulm recs
[2024-06-15] MEDS: SPIRONOLACTONE 25 MG TABLET PO SCH (21:00)
[2024-06-15] MEDS: predniSONE 20 MG TAB PO SCH (21:17)
[2024-06-16] MEDS: LORAZEPAM 1 MG TABLET PO PRN (01:09)
[2024-06-16 05:15] LABS: Absolute Basophils 0.1 K/uL (0-0.5); Absolute Lymphocytes (CBC) 1.1 K/uL (0.7-4.9); Absolute Monocytes 0.6 K/uL (0.1-1.3); Basophils % 0.6 % (0-1.3); Eosinophils % 0.1 % (0-4.4); Hematocrit 47.7 % (36.0-45.0); Hemoglobin 14.7 g/dL (12.0-15.0); Lymphocytes % 10.6 % (15.3-44.8); MCH 26.4 pg (27.0-35.0); MCHC 30.9 g/dL (32.0-36.0); MCV 85.5 fL (80-100); MPV 7.3 fL (7.6-11.3); Monocytes % 5.8 % (3.3-12.3); Neutrophils % 82.9 % (41.7-73.7); Platelets 268 thou/uL (152-406); RBC Red Blood Cell Count 5.58 M/uL (3.86-4.86); Red Cell Distribution Width 17.2 % (12.1-15.2)
[2024-06-16 05:34] LABS: Anion Gap 3.3 mEq/L (5.0-15.0); Potassium 4.3 mEq/L (3.5-5.1)
[2024-06-16] MEDS: NICOTINE 7 MG/PAT TD SCH (09:34)
[2024-06-16 09:45] VITALS: O2SAT 94
[2024-06-16 12:18] VITALS: BP 139/91; TEMP 97.7
--- NOTE | 2024-06-16 12:45 | P.PN ---
Subjective Date of Service: 06/16/24 Chief Complaint: Respiratory failure Patient feels slightly better still coughing Review of Systems General: Weakness Respiratory: Cough, Shortness of Breath Physical Examination - Vital Signs Temperature: 97.7 F Blood Pressure: 139/91 Pulse: 73 Respirations: 18 Pulse Ox (%): 93 - Physical Exam General: Alert, Oriented x3 Respiratory: Clear to auscultation bilaterally, Diminished Cardiovascular: No edema, Regular rate/rhythm Assessment And Plan - Current Problems (Diagnosis) (1) Respiratory failure with hypoxia and hypercapnia Current Visit: No Status: Acute Plan: Patient has chronic respiratory failure condition is currently stable check if patient will qualify for home O2 ambulate NIV has been ordered white count is down to normal range improvement in her blood pressure recommend discharge home on spironolactone prednisone 10 mg twice a day continue with Daliresp Qualifiers: Chronicity: chronic Qualified Code(s): J96.11 - Chronic respiratory failure with hypoxia; J96.12 - Chronic respiratory failure with hypercapnia
--- NOTE | 2024-06-16 13:00 | P.DS ---
Admission Date: 06/13/24 Discharge Date: 06/16/24 Reason for Admission: Respiratory failure Brief History of Present Illness: 54-year-old female presents with complaints of of shortness of breath. She normally is on CPAP at night. She reported that her symptoms have been progressively getting worse in the past week. She reported that she had fever at home. She reported cough with yellow sputum. In the ER she was noted to have a low O2 and was placed on 4 L. A dose of Levaquin, steroids and famotidine given in the ED. She does smoke 1 pack/day. She reports that she previously was on 3 packs/day. Patient was hospitalized for further management. Hospital Course: Problem List: Acute hypoxic respiratory failure secondary to Acute on chronic COPD exacerbation Obstructive sleep apnea - on CPAP Hypertension Hyperlipidemia CHF Anxiety/Depression Chronic pain syndrome Hx CVA Hx Multiple Sclerosis Tobacco use Acute hypoxic respiratory failure secondary to Acute on chronic COPD exacerbation Obstructive sleep apnea - on CPAP on admission, presents with worsening shortness of breath, productive cough, fatigue, +reported fever at home. SPO2 78% on room air on ER arrival Status post non-rebreather switched to BIPAP in ED due to satting 70-80% on non- rebreather. SPO2 improved to 95% on BIPAP and later transitioned to oxygen by nasal cannula. Patient has been using CPAP at night at home. She is currently tolerating oxygen by nasal cannula. Now at 5 L/min which is her baseline Pulmonary Dr. Aldana evaluated patient and assisted with management. Patient treated with IV steroid and transition to oral prednisone. She was also treated with nebulizers. Patient feels her CPAP machine is not functioning well Dr. Aldana is arranging for BiPAP to replace his CPAP at home. She is discharged with a prednisone taper. She completed 5 days of oral Levaquin. Hypertension Hyperlipidemia CHF Anxiety/Depression Chronic pain syndrome Hx CVA Hx Multiple Sclerosis Continued home medications Tobacco use Currently smokes 1 pack/day Smoking cessation advised. Vital Signs/Physical Exam: Temp Pulse Resp BP Pulse Ox 97.7 F 73 18 139/91 H 93 06/16/24 12:45 06/16/24 12:45 06/16/24 12:45 06/16/24 12:45 06/16/24 12:45 General: Alert, In no apparent distress, Obese HEENT: Mucous membr. moist/pink, Sclerae nonicteric Neck: Supple, No Thyromegaly Respiratory: Clear to auscultation bilaterally Cardiovascular: No edema, Regular rate/rhythm, Normal S1 S2 Gastrointestinal: Normal bowel sounds, Soft and benign, Non-distended Musculoskeletal: No swelling Integumentary: No cyanosis Neurological: Normal strength at 5/5 x4 extr Laboratory Data at Discharge: WBC 10.90 thou/uL (4.3-10.9) 06/16/24 05:03 Hgb 14.7 g/dL (12.0-15.0) 06/16/24 05:03 Hct 47.7 % (36.0-45.0) H 06/16/24 05:03 Plt Count 268 thou/uL (152-406) 06/16/24 05:03 PT 11.5 SECONDS (10-13.0) 06/12/24 21:33 INR 1.01 06/12/24 21:33 Sodium 135 mEq/L (136-145) L 06/16/24 05:03 Potassium 4.3 mEq/L (3.5-5.1) 06/16/24 05:03 BUN 21 mg/dL (7-18) H 06/16/24 05:03 Creatinine 0.83 mg/dL (0.55-1.02) 06/16/24 05:03 Glucose 217 mg/dL (74-106) H 06/16/24 05:03 Phosphorus 3.8 mg/dL (2.5-4.9) 06/15/24 04:24 Magnesium 2.4 mg/dL (1.6-2.4) 06/15/24 04:24 Total Bilirubin 0.2 mg/dL (0.2-1.0) 06/14/24 05:11 AST 17 U/L (15-37) 06/14/24 05:11 ALT 23 U/L (13-56) 06/14/24 05:11 Alkaline Phosphatase 99 U/L (45-117) 06/14/24 05:11 Lipase 14 U/L (13-75) 06/12/24 21:33 Home Medications: Amlodipine [Norvasc*] 10 mg PO DAILY 04/27/24 Gabapentin [Neurontin] 800 mg PO DAILY 04/27/24 Losartan Potassium 50 mg PO DAILY 04/27/24 Omeprazole [Prilosec] 40 mg PO BEDTIME 04/27/24 Prednisone [Sterapred Ds] 10 mg PO BID 04/27/24 Roflumilast 500 mcg PO DAILY 04/27/24 Tizanidine [Zanaflex*] 2 cap PO BEDTIME 04/27/24 Venlafaxine HCl [Effexor XR] 150 mg PO BEDTIME 04/27/24 Tizanidine [Zanaflex*] 8 mg PO BEDTIME tab 04/30/24 Acetaminophen [8 Hour Pain Relief] 1 tab PO Q12HR 06/13/24 Albuterol Inhaler [Ventolin Inhaler*] 1 puff PO PRN 06/13/24 Atorvastatin Calcium [Lipitor] 80 mg PO DAILY 06/13/24 Buprenorphine HCl [Belbuca] 600 mcg PO BID 06/13/24 D-Methorphan Hb/P-Epd HCl/Bpm [Bromphenex Dm Syrup] 10 ml PO PRN PRN 06/13/24 Gabapentin 2 tab PO BEDTIME 06/13/24 Guaifenesin [Mucinex] 600 mg PO Q12HR 06/13/24 Venlafaxine HCl *Xr* [Effexor XR] 75 mg PO BEDTIME 06/13/24 Gabapentin [Neurontin*] 1,600 mg PO BEDTIME cap 06/16/24 Ipratropium/Albuterol Sulfate [Iprat-Albut 0.5-3(2.5) mg/3 ml] 3 ml IH Q6H PRN #120 amp 06/16/24 Mometasone/Formoterol [Dulera 200 Mcg/5 Mcg Inhaler] 2 puff IH BID inhaler 06/16/24 Nebulizer 1 each QID #1 ea 06/16/24 Spironolactone [Aldactone*] 25 mg PO BID #60 tab 06/16/24 predniSONE [Deltasone*] 10 mg PO DAILY #30 tab 06/16/24 New Medications: Spironolactone [Aldactone*] 25 mg PO BID #60 tab predniSONE [Deltasone*] 10 mg PO DAILY #30 tab Ipratropium/Albuterol Sulfate [Iprat-Albut 0.5-3(2.5) mg/3 ml] 3 ml IH Q6H PRN #120 amp PRN Reason: Shortness Of Breath Nebulizer 1 each QID #1 ea Followup: STIVEN SEWELL [Primary Care Provider] - 1-2 Weeks Time spent managing pt's care (in minutes): 36
== END 2024-06-16 15:24 | disposition home or self-care (01) | DRG 189 ==
LOC: ER 20:36 → ERHOLD 06-13 00:27 → 2ND 06-13 11:12
PROVIDERS: ADMIT Internal Medicine; ATTEND Internal Medicine
PROC: 5A09457 Assistance with Respiratory Ventilation, 24-96 Consecutive Hours, Continuous Positive Airway Pressure (ICD-10-PCS; principal; 2024-06-13)
PROC: 4A033R1 Measurement of Arterial Saturation, Peripheral, Percutaneous Approach (ICD-10-PCS; 2024-06-13)
DX: J96.21 Acute and chronic respiratory failure with hypoxia (principal); J44.1 Chronic obstructive pulmonary disease with (acute) exacerbation; Z72.0 Tobacco use; Z86.73 Personal history of transient ischemic attack (TIA), and cerebral infarction without residual deficits; E66.9 Obesity, unspecified; F41.8 Other specified anxiety disorders; Z68.35 Body mass index [BMI] 35.0-35.9, adult; I11.0 Hypertensive heart disease with heart failure; I50.9 Heart failure, unspecified; G35 Multiple sclerosis; G47.33 Obstructive sleep apnea (adult) (pediatric); E78.5 Hyperlipidemia, unspecified; G89.4 Chronic pain syndrome
CPT/HCPCS: 36415; 71045; 80048; 80053; 80069; 80076; 81003; 82805; 83605; 83690; 83735; 83880; 84484; 85025; 85610; 87040; 87428; 93005; 93306; 94640; 94660; 94760; 96365; 96375; 99285; J1100; J1940; J2919; J3475; J3535; J7040; J7512; J7613; J7614; J7644